=== PATIENT | female | born 1955 | race Caucasian/White ===

== ENCOUNTER → 2019-12-11 10:00 | Outpatient (BNVA) | payer MEDICARE, SELFPAY | PROVIDERS: PCP Internal Medicine; Referring Provider Internal Medicine; Visit Provider Family Medicine Adult Medicine | DX: G89.4 Chronic pain syndrome (principal); M47.816 Spondylosis without myelopathy or radiculopathy, lumbar region; M19.90 Unspecified osteoarthritis, unspecified site; Z79.891 Long term (current) use of opiate analgesic | CPT/HCPCS: 99214 ==

== ENCOUNTER → 2020-03-17 13:52 | Outpatient (BNVA) | payer MEDICARE, SELFPAY | PROVIDERS: PCP Internal Medicine; Visit Provider Family Medicine Adult Medicine | DX: Z51.81 Encounter for therapeutic drug level monitoring (principal) | CPT/HCPCS: 99211 ==

== ENCOUNTER 2020-03-24 14:12 | Outpatient (REF) | payer MEDICARE, SELFPAY ==
--- NOTE | 2020-03-24 | MM_ITS ---
EXAMINATION: MM SCREENING DIGITAL BREAST TOMOSYNTHESIS, BILATERAL CLINICAL INFORMATION: Screening. Asymptomatic. The lifetime risk of breast cancer based on the Tyrer-Cuzick Model is 7%. COMPARISON: Mammography: 12/24/2018, 11/13/2018, outside exam 03/06/2016 ([facility]). TECHNIQUE: Digital breast tomosynthesis is performed in both the craniocaudal and mediolateral oblique views along with computer-aided detection (CAD). Synthesized 2D images are generated from the tomosynthesis. FINDINGS: There are scattered areas of fibroglandular density (ACR BI-RADS breast composition Category b). Breast tissue composition borders on predominantly fatty. There are no significant masses, abnormal calcifications, or other abnormalities. No significant changes from prior exams. MM/MM tomosynthesis screening BI IMPRESSION: No mammographic evidence of malignancy. ASSESSMENT: BI-RADS 1: Negative RECOMMENDATION: Routine annual mammography screening. This patient's information was entered into a reminder system with a target due date for their next mammogram.
== END 2020-03-24 14:13 | disposition home or self-care (01) ==
LOC: HO.MAMMO 14:12
PROVIDERS: PCP Internal Medicine; Visit Provider Internal Medicine
DX: Z12.31 Encounter for screening mammogram for malignant neoplasm of breast (principal)
CPT/HCPCS: 77063; 77067

== ENCOUNTER → 2020-04-14 15:34 | Outpatient (BNVA) | payer MEDICARE, SELFPAY | PROVIDERS: PCP Internal Medicine; Visit Provider Family Medicine Adult Medicine | DX: M19.90 Unspecified osteoarthritis, unspecified site (principal); M79.7 Fibromyalgia | CPT/HCPCS: 99212 ==

== ENCOUNTER 2020-08-26 13:04 | Outpatient (REF) | payer MEDICARE, SELFPAY ==
[2020-08-26 14:13] LABS: Hematocrit 36.1 % (37-47); Hemoglobin 12.1 g/dl (12.0-16.0); Mean Corpuscular HGB Conc 33.5 g/dl (31.0-35.0); Mean Corpuscular Hemoglobin 33.9 pg (27.0-33.0); Mean Corpuscular Volume 101.1 fL (80-98); Platelet Count 179 X10*3/uL (160-400); Red Blood Count 3.57 X10*6/uL (4.20-5.50); Red Cell Distribution Width 12.5 % (11.0-16.0)
[2020-08-26 14:35] LABS: Alanine Aminotransferase 17 U/L (0-31); Albumin Level 4.2 g/dL (3.5-5.0); Alkaline Phosphatase 55 U/L (39-117); Anion Gap 12 (12-20); Aspartate Amino Transferase 25 U/L (5-31); Bilirubin Direct 0.2 mg/dL (0.0-0.5); Bilirubin Total 0.4 mg/dL (0.0-1.0); Blood Urea Nitrogen 11 mg/dL (9-16); Calcium 9.6 mg/dL (8.4-10.2); Carbon Dioxide 30 mmol/L (22-29); Chloride 97 mmol/L (96-108); Cholesterol 244 mg/dL; Estimated Glomerular Filt Rate > 60; Glucose Random 107 mg/dL (60-115); HDL Cholesterol 53 mg/dL; LDL Cholesterol Calculated 156 mg/dl; Potassium 4.1 mmol/L (3.3-5.1); Sodium 135 mmol/L (135-145); Total Protein 6.8 g/dL (6.5-8.0); Triglycerides 177 mg/dL
[2020-08-26 14:47] LABS: Glucose Urine UA NEG (NEG); Leukocyte Esterase Urine NEG (NEG); Nitrite Urine NEG (NEG); Specific Gravity - Urine 1.015 (1.005-1.025); Urine Blood NEG (NEG); Urine Ketones NEG (NEG); Urine Protein NEG (NEG-TRACE)
[2020-08-26 14:57] LABS: Thyroid Stimulating Hormone 0.16 uIU/mL (0.32-4.0)
[2020-08-26 15:05] LABS: Appearance Urine CLEAR; Color Urine YELLOW
[2020-08-26 15:06] LABS: Vitamin B12 656 pg/mL (200-900)
[2020-08-26 15:07] LABS: Erythrocyte Sedimentation Rate 7 MM/HR (0-20)
[2020-08-30 17:22] LABS: Vitamin D 25-OH, D2 <4 ng/mL; Vitamin D 25-OH, D3 62 ng/mL; Vitamin D 25-OH, Total 62 ng/mL (30-100)
== END 2020-08-26 13:05 | disposition home or self-care (01) ==
LOC: HO.LAB 13:04
PROVIDERS: PCP Internal Medicine; Visit Provider Internal Medicine
DX: M79.7 Fibromyalgia (principal)
CPT/HCPCS: 36415; 80048; 80061; 80076; 81003; 82306; 82607; 82746; 84443; 85027; 85652

== ENCOUNTER → 2020-08-30 14:23 | Outpatient (BNVA) | payer MEDICARE, SELFPAY | PROVIDERS: PCP Internal Medicine; Visit Provider Family Medicine Adult Medicine | DX: M19.90 Unspecified osteoarthritis, unspecified site (principal); M79.7 Fibromyalgia | CPT/HCPCS: 99212 ==

== ENCOUNTER → 2020-09-27 14:47 | Outpatient (BNVA) | payer MEDICARE, SELFPAY | PROVIDERS: PCP Internal Medicine; Visit Provider Family Medicine Adult Medicine | DX: M79.7 Fibromyalgia (principal); M19.90 Unspecified osteoarthritis, unspecified site; Z79.891 Long term (current) use of opiate analgesic | CPT/HCPCS: 99212 ==

== ENCOUNTER 2020-10-27 10:30 | Outpatient (REF) | payer MEDICARE, SELFPAY | END 2020-10-27 10:31 | disposition home or self-care (01) | LOC: HO.LAB 10:30 | PROVIDERS: PCP Internal Medicine; Visit Provider Family Medicine Adult Medicine | DX: M79.7 Fibromyalgia (principal); M19.90 Unspecified osteoarthritis, unspecified site; S22.069D Unspecified fracture of T7-T8 vertebra, subsequent encounter for fracture with routine healing; S13.4XXD Sprain of ligaments of cervical spine, subsequent encounter; S39.81XD Other specified injuries of abdomen, subsequent encounter; Z79.891 Long term (current) use of opiate analgesic | CPT/HCPCS: 99212 ==

== ENCOUNTER → 2020-11-24 12:55 | Outpatient (BNVA) | payer MEDICARE, SELFPAY | PROVIDERS: PCP Internal Medicine; Visit Provider Family Medicine Adult Medicine | DX: Z51.81 Encounter for therapeutic drug level monitoring (principal); M79.7 Fibromyalgia; M19.90 Unspecified osteoarthritis, unspecified site; S13.4XXD Sprain of ligaments of cervical spine, subsequent encounter; S39.81XD Other specified injuries of abdomen, subsequent encounter | CPT/HCPCS: 99212 ==

== ENCOUNTER → 2020-11-28 10:55 | Outpatient (BNVA) | payer MEDICARE, SELFPAY | PROVIDERS: PCP Internal Medicine; Visit Provider Anesthesiology ==

== ENCOUNTER → 2020-12-27 13:15 | Outpatient (BNVA) | payer MEDICARE, SELFPAY | PROVIDERS: PCP Internal Medicine; Visit Provider Family Medicine Adult Medicine | DX: Z51.81 Encounter for therapeutic drug level monitoring (principal); M79.7 Fibromyalgia; M19.90 Unspecified osteoarthritis, unspecified site | CPT/HCPCS: 99212 ==

== ENCOUNTER → 2021-01-19 15:01 | Outpatient (BNVA) | payer MEDICARE, SELFPAY | PROVIDERS: PCP Internal Medicine; Visit Provider Family Medicine Adult Medicine | DX: Z51.81 Encounter for therapeutic drug level monitoring (principal); M79.7 Fibromyalgia; M47.817 Spondylosis without myelopathy or radiculopathy, lumbosacral region | CPT/HCPCS: 99212 ==

== ENCOUNTER 2021-04-12 13:56 | Outpatient (REF) | payer MEDICARE, SELFPAY ==
--- NOTE | ~2021-04-12 | MM_ITS ---
EXAMINATION: MM SCREENING DIGITAL BREAST TOMOSYNTHESIS, BILATERAL CLINICAL INFORMATION: Screening. Asymptomatic. The lifetime risk of breast cancer based on the Tyrer-Cuzick Model is 6%. COMPARISON: Mammography: 03/24/2020, 12/24/2018, 11/13/2018, 03/06/2016 TECHNIQUE: Digital breast tomosynthesis is performed in both the craniocaudal and mediolateral oblique views along with computer-aided detection (CAD). Synthesized 2D images are generated from the tomosynthesis. FINDINGS: There are scattered areas of fibroglandular density (ACR BI-RADS breast composition Category b). Background stromal and fibroglandular densities are similar to prior studies. There is no architectural abnormality or abnormal calcifications or developing density. The axilla are unremarkable. No significant changes. MM/MM tomosynthesis screening BI IMPRESSION: No mammographic evidence of malignancy. ASSESSMENT: BI-RADS 1: Negative RECOMMENDATION: Routine annual mammography screening. This patient's information was entered into a reminder system with a target due date for their next mammogram.
[2021-04-12 14:24] LABS: Hematocrit 36.9 % (37.0-47.0); Hemoglobin 12.7 g/dl (12.0-16.0); Mean Corpuscular HGB Conc 34.4 g/dl (31.0-35.0); Mean Corpuscular Volume 101.7 fL (80.0-98.0); Mean Platelet Volume 11.2 fL (9.4-12.3); Platelet Count 195 X10*3/uL (160-400); Red Blood Count 3.63 X10*6/uL (4.20-5.50); Red Cell Distribution Width 11.9 % (11.0-16.0); White Blood Count 7.9 X10*3/uL (4.8-10.8)
[2021-04-12 15:15] LABS: Alanine Aminotransferase 21 U/L (0-31); Albumin Level 4.3 g/dL (3.5-5.0); Alkaline Phosphatase 61 U/L (39-117); Anion Gap 12 (12-20); Aspartate Amino Transferase 23 U/L (5-31); Bilirubin Direct 0.3 mg/dL (0.0-0.5); Bilirubin Total 0.9 mg/dL (0.0-1.0); Blood Urea Nitrogen 18 mg/dL (9-16); Carbon Dioxide 31 mmol/L (22-29); Chloride 98 mmol/L (96-108); Cholesterol 293 mg/dL; Estimated Glomerular Filt Rate > 60; Glucose Random 99 mg/dL (60-115); HDL Cholesterol 58 mg/dL; LDL Cholesterol Calculated 202 mg/dl; Sodium 137 mmol/L (135-145); Total Protein 7.2 g/dL (6.5-8.0); Triglycerides 169 mg/dL
[2021-04-12 15:35] LABS: Thyroid Stimulating Hormone 0.67 uIU/mL (0.32-4.0)
[2021-04-12 16:07] LABS: Appearance Urine CLEAR; Color Urine YELLOW; Glucose Urine UA NEG (NEG); Leukocyte Esterase Urine NEG (NEG); Nitrite Urine NEG (NEG); Urine Blood NEG (NEG); Urine Ketones 5 MG/DL (NEG); Urine Protein TRACE MG/DL (NEG-TRACE)
== END 2021-04-12 13:57 | disposition home or self-care (01) ==
LOC: HO.MAMMO 13:56
PROVIDERS: PCP Internal Medicine; Visit Provider Internal Medicine
DX: Z12.31 Encounter for screening mammogram for malignant neoplasm of breast (principal); F10.10 Alcohol abuse, uncomplicated; G89.4 Chronic pain syndrome; M47.817 Spondylosis without myelopathy or radiculopathy, lumbosacral region
CPT/HCPCS: 36415; 77063; 77067; 80048; 80061; 80076; 81003; 84443; 85027

== ENCOUNTER 2021-07-01 14:59 | Emergency (ER) | payer MEDICARE, SELFPAY ==
--- NOTE | ~2021-07-01 | XR_ITS ---
EXAMINATION: XR CHEST CLINICAL INFORMATION: Cough. Shortness of breath. COMPARISON: None TECHNIQUE: Frontal view of the chest was obtained. FINDINGS: The lungs are clear. The cardiomediastinal silhouette is normal in size. There is no pleural effusion or pneumothorax. No acute osseous abnormality. XR/XR chest 1V IMPRESSION: No acute cardiopulmonary findings.
[2021-07-01 15:03] VITALS: BP 198/76; PULSE 58; TEMP 36.9; O2SAT 97; BMI 35.2
[2021-07-01 15:31] LABS: COVID-19 Test Negative (Negative); IDNOW Serial# 16C4AD1C; Influenza A Positive (Negative); Influenza B2 Negative (Negative)
--- NOTE | 2021-07-01 15:48 | ED_ITS ---
HPI - URI/Sore Throat General Chief Complaint: Upper Respiratory Symptoms Stated Complaint: sob,coughing,body aches Time Seen by Provider: 07/01/21 15:47 Source: patient Mode of arrival: ambulatory Limitations: no limitations History of Present Illness HPI Narrative: 65 y/o female with history of fibromyalgia, chronic pain syndrome, epilepsy, GERD, HLD, hypothyrodism, VIPUL, anxiety who presents to the ER with 4 days of productive cough, fatigue, and body aches. She works here as a nurse and has been intermittently checking her home O2 sats on her pulse oximeter, with readings of as low as 91% the last few days. She denies any difficulty breathing or chest pain but she has some shortness of breath when she climbs a set of stairs. She has been bringing up yellow phelgm and is worried about pneumonia. She denies any fever or chills, no known sick contacts. She is vaccinated for COVID but not Flu. MD elicited complaint: cough and other (body aches) Onset (ago): day(s) (4) Consistency: constant Severity: moderate Description of mucous: watery and yellow Able to tolerate fluids by mouth: Yes Exacerbating factors: exertion Relieving factors: OTC cold medicine and rest Associated symptoms: myalgias, nasal congestion, sore throat, cough and shortness of breath Treatments prior to arrival: none Related Data Home Medications Medication Instructions Recorded Confirmed buprenorphine 8 mg-naloxone 2 mg 1 film BUCCAL Q24H ea 04/19/21 sublingual film (Suboxone) ibuprofen 200 mg capsule See Rx Instructions PO Q6H PRN 04/19/21 04/19/21 minocycline 100 mg capsule 100 mg PO Q12H 04/19/21 04/19/21 Previous Rx's Medication Instructions Recorded cholecalciferol (vitamin D3) 25 25 mcg PO DAILY 90 Days #90 cap 04/19/21 mcg (1,000 unit) capsule duloxetine 60 mg capsule,delayed 60 mg PO DAILY 90 Days #90 cap 04/19/21 release levetiracetam 500 mg tablet 500 mg PO BID 90 Days #180 tab 04/19/21 lisinopril 20 2 tab PO DAILY 90 Days #180 tab 04/19/21 mg-hydrochlorothiazide 12.5 mg tablet metoprolol succinate 100 mg 100 mg PO DAILY 90 Days #90 tab 04/19/21 tablet,extended release 24 hr omeprazole 20 mg capsule,delayed 20 mg PO DAILY 90 Days #90 cap 04/19/21 release ondansetron HCl 4 mg tablet 4 mg PO Q8H PRN #90 tab 05/04/21 levothyroxine 125 mcg tablet 125 mcg PO DAILY 90 Days #90 tab 05/29/21 lorazepam 0.5 mg tablet 0.5 mg PO BEDTIME PRN #30 tab 06/12/21 Allergies Allergy/AdvReac Type Severity Reaction Status Date / Time Sulfa (Sulfonamide Allergy Unknown Hives Verified 07/01/21 15:07 Antibiotics) [SULFA (SULFONAMIDE ANTIBIOTICS)] aspirin [ASA] AdvReac Unknown GI UPSET Verified 07/01/21 15:07 Review of Systems Review of Systems: Constitutional: + Fever, No Chills ENT/Mouth: No sore throat, No Rhinorrhea, No Swallowing Difficulty Cardiovascular: No Chest Pain, + SOB, No Orthopnea, No Edema Respiratory: + Cough, No Sputum, No Wheezing, No dyspnea Gastrointestinal: No Nausea, No Vomiting, No Diarrhea, No abdominal Pain Genitourinary: No Dysuria, No Urinary Frequency, No Hematuria Musculoskeletal: + joint pain, + Myalgias Skin: No Skin Lesions, No rash Neuro: No Weakness, No Numbness, No Dizziness, + Headache Heme/Lymph: No Bruising, No Lymphadenopathy PMFSH Past Medical History Medical History (Updated 07/01/21 @ 15:58 by IRVING Perez) Acquired hypothyroidism Benign essential hypertension Chronic pain syndrome Epilepsy Fibromyalgia Generalized anxiety disorder GERD without esophagitis Lumbar and sacral arthritis Macrocytosis without anemia Obesity (BMI 30-39.9) Obstructive sleep apnea Pure hypercholesterolemia Substance use disorder Vitamin D deficiency Surgical History History of cholecystectomy History of knee replacement Family History Family History Mother No problems noted. Father No problems noted. Daughter Substance use disorder Son Substance use disorder Social History Social History Housing: House Alcohol intake: current Alcohol intake frequency: holidays/special occasions only Patient Tobacco Use Status: Former Tobacco user Second Hand Smoke Exposure: Yes Advance Directives: No Advance Directives Information Provided: No service: No Current occupational status: previously employed Physical Exam Vital Signs: Vital Signs: Last Vital Signs Temp 98.5 F 07/01/21 15:03 Pulse 80 07/01/21 16:09 Resp 18 07/01/21 16:09 BP 170/65 H 07/01/21 16:09 Pulse Ox 97 07/01/21 16:09 BMI result Body Mass Index 35.2 Appearance: Alert. Oriented X3. No acute distress. Eyes: Pupils equal, round and reactive to light. ENT: Normal external inspection Neck: Normal inspection. Neck supple. CVS: Normal heart rate and rhythm. Pulses normal. Respiratory: No respiratory distress. Breath sounds normal. Skin: Skin warm and dry. Normal skin color. Normal skin turgor. No rashes. Extremities: No lower extremity edema. Neuro: Oriented X 3. Grossly normal, nonfocal Course Course Course Narrative: 65-year-old female presents to the ER with 4 days of dry cough, body aches and generalized fatigue. She is vaccinated for COVID but not the flu. She presents to the ER hypertensive 198/76 with SpO2 97% on room air. She is afebrile. Her examination is benign. She is found to be influenza A positive. Her chest x- ray is clear with no evidence of pneumonia. She does not qualify for treatment with Tamiflu given duration of her symptoms. She was counseled on symptomatic management, return precautions and worrisome signs to return to the ER. She is stable for discharge home with supportive care. MDM - URI/Sore Throat Lab Data Labs: Lab Results 07/01/21 07/01/21 Range/Units 15:08 15:08 COVID-19 (TANISHA) Negative (Negative) COVID-19 Clin Com See Note Influenza Type A (GABRIELLE) Positive A (Negative) Influenza Type B (GABRIELLE) Negative (Negative) Influenza A & B Note See Note Critical Care Time Critical Care Time Critical Care Time: No Discharge Plan Discharge Clinical Impression: Influenza Patient Disposition: Home, Self-Care Instructions: Influenza (DC) Additional Instructions: You tested positive for influenza A today. Your chest x-ray and oxygen levels were normal. Rest. Drink plenty of fluids. Do not go out in public for the next 5 days. Take over the counter cold/flu medications as needed for your symptoms. Take Tylenol and/or Motrin as needed for fevers and body aches. If you shortness of breath worsens, if you develop difficulty breathing or any other concerning symptom come back to the ER for further evaluation. Prescriptions: No Action ondansetron HCl 4 mg tablet 4 mg PO Q8H PRN (Reason: nausea and vomiting) Qty: 90 1RF Rx Instructions: take 1/2-1 tab by mouth every 8 hours as needed for nausea and vomiting levothyroxine 125 mcg tablet 125 mcg PO DAILY 90 Days Qty: 90 3RF lorazepam 0.5 mg tablet 0.5 mg PO BEDTIME PRN (Reason: anxiety) Qty: 30 0RF buprenorphine-naloxone [Suboxone] 8-2 mg film 1 film buccal Q24H 0RF Label Comments: weaning OFF ibuprofen 200 mg capsule See Rx Instructions PO Q6H PRN0RF Rx Instructions: 1 to 3 capsules PO every 6 hours PRN; lisinopril-hydrochlorothiazide 20-12.5 mg tablet 2 tab PO DAILY 90 Days Qty: 180 3RF duloxetine 60 mg capsule,delayed release(DR/EC) 60 mg PO DAILY 90 Days Qty: 90 1RF levetiracetam 500 mg tablet 500 mg PO BID 90 Days Qty: 180 3RF metoprolol succinate 100 mg tablet extended release 24 hr 100 mg PO DAILY 90 Days Qty: 90 3RF omeprazole 20 mg capsule,delayed release(DR/EC) 20 mg PO DAILY 90 Days Qty: 90 3RF cholecalciferol (vitamin D3) 25 mcg (1,000 unit) capsule 25 mcg PO DAILY 90 Days Qty: 90 3RF minocycline 100 mg capsule 100 mg PO Q12H 0RF Label Comments: taking as needed for acne flare up Stand Alone Forms: Work/School Release Interventions: ED Discharge Assessment Last Done: 07/01/21 16:15 Discharge Date/Time: 07/01/21 16:15
[2021-07-01 16:09] VITALS: BP 170/65; PULSE 80; RESP 18; O2SAT 97
== END 2021-07-01 16:15 | disposition home or self-care (01) ==
PROVIDERS: Emergency Provider Emergency Medicine; PCP Internal Medicine
DX: J11.1 Influenza due to unidentified influenza virus with other respiratory manifestations (principal); I10 Essential (primary) hypertension; Z20.822 Contact with and (suspected) exposure to COVID-19
CPT/HCPCS: 71045; 87502; 87635; 99283; 99284

== ENCOUNTER → 2021-08-01 13:30 | Outpatient (BNVA) | payer MEDICARE, SELFPAY | PROVIDERS: PCP Internal Medicine; Referring Provider Internal Medicine; Visit Provider Nurse Practitioner Family | DX: Z12.11 Encounter for screening for malignant neoplasm of colon (principal); K21.9 Gastro-esophageal reflux disease without esophagitis; R13.19 Other dysphagia | CPT/HCPCS: 99202; 99212 ==

== ENCOUNTER 2021-11-01 14:44 | Outpatient (REF) | payer MEDICARE, SELFPAY ==
[2021-11-01 16:16] LABS: MANUAL DIFF FLAG NO
[2021-11-01 16:23] LABS: Basophils Absolute Auto 0.1 X10*3/uL (0.0-0.2); Basophils Percent Auto 1.6 % (0-2); Eosinophils Absolute Auto 0.3 X10*3/uL (0.0-0.4); Eosinophils Percent Auto 4.8 % (0-4); Hematocrit 38.6 % (37.0-47.0); Hemoglobin 13.5 g/dl (12.0-16.0); Imm Gran Abs Auto 0.02 X10*3/uL (0.00-0.03); Imm Gran Pct Auto 0.3 % (0.0-0.4); Lymphocytes Absolute Auto 1.5 X10*3/uL (1.2-4.9); Lymphocytes Percent Auto 21.5 % (20-40); Mean Corpuscular Hemoglobin 34.4 pg (27.0-33.0); Mean Corpuscular Volume 98.5 fL (80.0-98.0); Mean Platelet Volume 10.8 fL (9.4-12.3); Monocytes Absolute Auto 0.8 X10*3/uL (0.1-1.2); Monocytes Percent Auto 11.4 % (2-11); Neutrophils Absolute Auto 4.1 x10*3/uL (2.0-8.3); Neutrophils Percent Auto 60.4 % (45-73); Platelet Count 196 X10*3/uL (160-400); Red Blood Count 3.92 X10*6/uL (4.20-5.50); Red Cell Distribution Width 12.7 % (11.0-16.0); White Blood Count 6.8 X10*3/uL (4.8-10.8)
[2021-11-01 16:48] LABS: Alanine Aminotransferase 16 U/L (0-31); Albumin Level 4.4 g/dL (3.5-5.0); Alkaline Phosphatase 63 U/L (39-117); Anion Gap 18 (12-20); Aspartate Amino Transferase 23 U/L (5-31); Bilirubin Total 0.7 mg/dL (0.0-1.0); Blood Urea Nitrogen 17 mg/dL (9-16); Calcium 9.9 mg/dL (8.4-10.2); Carbon Dioxide 27 mmol/L (22-29); Chloride 95 mmol/L (96-108); Cholesterol 273 mg/dL; Estimated Glomerular Filt Rate 56; Glucose Fasting 118 mg/dL (60-99); HDL Cholesterol 66 mg/dL; LDL Cholesterol Calculated 173 mg/dl; Sodium 136 mmol/L (135-145); Total Protein 7.5 g/dL (6.5-8.0); Triglycerides 174 mg/dL
[2021-11-01 17:08] LABS: Free T4 (Free Thyroxine) 1.24 ng/dL (0.71-1.85); Thyroid Stimulating Hormone 0.89 uIU/mL (0.32-4.0); Vitamin D 25-OH Total 52.4 ng/mL (>30)
[2021-11-01 17:25] LABS: Folate > 20.0 ng/mL (> or = 4.0); Vitamin B12 588 pg/mL (200-900)
[2021-11-05 05:52] LABS: Levetiracetam Keppra 26.1 mcg/mL (6.0-46.0)
== END 2021-11-01 14:45 | disposition home or self-care (01) ==
LOC: HO.LAB 14:44
PROVIDERS: PCP Internal Medicine; Visit Provider Internal Medicine
DX: E03.9 Hypothyroidism, unspecified (principal); E78.00 Pure hypercholesterolemia, unspecified; E55.9 Vitamin D deficiency, unspecified; I10 Essential (primary) hypertension; E53.8 Deficiency of other specified B group vitamins; G40.909 Epilepsy, unspecified, not intractable, without status epilepticus
CPT/HCPCS: 36415; 80053; 80061; 80177; 82306; 82607; 82746; 84439; 84443; 85025

== ENCOUNTER 2021-11-02 14:27 | Outpatient (REF) | payer MEDICARE, SELFPAY ==
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
== END 2021-11-02 14:28 | disposition home or self-care (01) ==
LOC: HO.MAMMO 14:27
PROVIDERS: PCP Internal Medicine; Visit Provider Obstetrics & Gynecology
DX: Z13.820 Encounter for screening for osteoporosis (principal); M85.89 Other specified disorders of bone density and structure, multiple sites; Z78.0 Asymptomatic menopausal state
CPT/HCPCS: 77080

== ENCOUNTER 2022-03-26 11:22 | Day surgery (SDC) | payer MEDICARE, SELFPAY ==
[2021-10-27 13:45] VITALS: BMI 34.7
[2022-03-26 12:11] VITALS: BP 161/72; PULSE 61; RESP 18; TEMP 36.6; O2SAT 97
--- NOTE | 2022-03-26 12:49 | MHC.SHP ---
Pre-Procedural Eval Section A Date of Service: 03/26/22 The patient is an INPATIENT: No The History & Physical has been completed within 30 days and I have reviewed it.: No Section B Chief Complaint: Dysphagia,screening Details of Present Illness: Colon cancer screening, dysphagia, GERD Relevant Family History (Specify if Yes): No Relevant Social History: Tobacco Use (former smoker) Present Medications: see Short Stay Collaborative assessment Medical History: Significant History (Acquired hypothyroidism Benign essential hypertension Chronic pain syndrome Epilepsy Fibromyalgia Generalized anxiety disorder GERD without esophagitis Lumbar and sacral arthritis Macrocytosis without anemia Obesity (BMI 30-39.9) Obstructive sleep apnea Pure hypercholesterolemia Substance use disord) History of Previous Operations: Relevant previous surgery/procedure and date(s) (History of cholecystectomy History of knee replacement) Allergies: Allergies Allergy/AdvReac Type Severity Reaction Status Date / Time Sulfa (Sulfonamide Allergy Intermediate Hives Verified 12/22/21 15:17 Antibiotics) [SULFA (SULFONAMIDE ANTIBIOTICS)] [id number] Reductase AdvReac Intermediate myalgia; Verified 12/22/21 15:17 Inhibitor word retrieval difficulty aspirin [ASA] AdvReac Mild GI UPSET Verified 12/22/21 15:17 Review of Systems Sugical H&P ROS: Negative: Constitution, Cardiovascular and Respiratory and Yes, Specify: Gastrointestinal (dysphagia) Exam Surgical H&P Exam: Normal: Heart, Normal: Lungs, Normal: Extremities and Normal: Abdomen Plan Diagnosis/Plan: Unchanged I have reviewed the history and physical and performed a pertinent physical examination on my patient. No changes have occurred unless specified. Time Spent With Patient Time: Total time managing care of this patient today ____ minutes.
--- NOTE | 2022-03-26 12:52 | P.BOP_ITS ---
Brief Operative Note Date of Service: 03/26/22 Pre-op diagnosis: Colon cancer screening, GERD, dysphagia Post-op diagnosis: other (GERD, dysphagia, gastritis, gastric polyps, prominent gastric folds, gastric antral nodule, diverticulosis) Procedure: UPPER ENDOSCOPY WITH BIOPSIES AND ESOPHAGEAL BALLOON DILATION. COLONOSCOPY TILL CECUM Surgeon: Heavenly Jiménez MD Anesthesia: MAC Was an Furniture Upholsterer Apprentice used for this Procedure?: Yes Furniture Upholsterer Apprentice: Sabrina Carmona Estimated blood loss (mL): 0 Pathology: other (A. gastric antrum, R/O H. pylori B. bxs antral nodule C. bxs gastric polyps D. bxs gastric fold E. bxs proximal esophagus, R/O EoE) Condition: stable Disposition: PACU
--- NOTE | 2022-03-26 12:53 | P.OP_ITS ---
Operative Note Operative Note Date of Service: 03/26/22 Narrative: Pre-op diagnosis: Colon cancer screening, GERD, dysphagia Post-op diagnosis:?other (GERD, dysphagia, gastritis, gastric polyps, prominent gastric folds, gastric antral nodule, diverticulosis) Surgeon: Heavenly Jiménez MD Anesthesia:?MAC FLEXIBLE TRANSORAL UPPER GASTROINTESTINAL ENDOSCOPY WITH BIOPSIES ESOPHAGEAL BALLOON DILATION AND COLONOSCOPY TILL CECUM UPPER ENDOSCOPY Consent: Indications for the procedure and potential complications of bleeding, perforation, reaction to medications and missed diagnosis were discussed with the patient and informed consent was obtained. Instrument: Olympus GIF H 190 mid size upper endoscope Monitoring: Vital signs and clinical assessment, continuous EKG monitoring, Pulse oximetry, Carbon Dioxide monitoring and blood pressure monitoring were done throughout the procedure. Procedure: The patient was placed in the left lateral decubitis position and pre-procedure medications were administered and a bite block was placed. The endoscope was inserted into the mouth and advanced under direct vision to the third part of duodenum. A careful inspection was made as the upper endoscope was withdrawn including a retroflexed examination of the proximal stomach; Findings and interventions are described below. Findings: Larynx: Normal Esophagus: Tortuous esophagus with increased tertiary contractions without obvious stricture or ring - biopsies were obtained from proximal esophagus to check for EOE. GE junction at 36 cms. No esophagitis or Gill's Esophageal balloon dilation was performed with a 19 mm (51 F) CRE balloon x 60 seconds Stomach: Prominent gastric folds in the gastric body - biopsied. A few 5 to 10 mm benign-appearing gastric polyps and the body of the stomach - biopsied. Moderate diffuse gastric erythema. Biopsies were obtained. A 12-15 mm benign appearing nodule in the gastric antrum - biopsied. Grade 2 flap valve on retroflexed examination of the cardia. Duodenum: Normal bulb and descending duodenum Intervention: Biopsies as noted above COLONOSCOPY PROCEDURE NOTE Consent: Indications for the procedure and potential complications of bleeding, perforation, reaction to medications and missed diagnosis were discussed with the patient and informed consent was obtained. Instrument: Olympus PCF H 190 L variable stiffness pediatric colonoscope Monitoring: Vital signs and clinical assessment, intermittent blood pressure monitoring, continuous EKG monitoring, Pulse oximetry and Carbon Dioxide monitoring were done throughout the procedure. Colon withdrawl time was 20 minutes. Procedure: The patient was placed in the left lateral decubitis position and pre-procedure medications were administered. After a digital rectal examination of the ano-rectum, the video colonoscope was inserted into the rectum and advanced through the colon to the cecum. The colonoscope was slowly withdrawn in a retrograde panoramic fashion and the colon mucosa was carefully examined including a retroflexed view of the rectum. Findings and interventions are described below. Procedure Difficulty: : Without difficulty Findings: Terminal Ileum: Not evaluated Cecum: Normal Ascending Colon: Normal Transverse Colon: Normal Descending Colon: Moderate diverticulosis Sigmoid Colon: Moderate diverticulosis Rectum: Normal Ano-rectum: Nomal Colon preparation: Good after copious irrigation Impression and Post Procedure Diagnosis: Endoscopy Findings: ESOPHAGUS: Tortuous esophagus with increased tertiary contractions without obvious stricture or ring - biopsies were obtained from proximal esophagus to c heck for EOE. GE junction at 36 cms. No esophagitis or Gill's Esophageal balloon dilation was performed with a 19 mm (51 F) CRE balloon x 60 seconds STOMACH: Prominent gastric folds in the gastric body - biopsied. A few 5 to 10 mm benign-appearing gastric polyps and the body of the stomach - biopsied. Moderate diffuse gastric erythema. Biopsies were obtained. A 12-15 mm benign appearing nodule in the gastric antrum - biopsied. Dysphagia is likely due to esophageal motility disorder Colonoscopy Findings: No polyps were detected Moderate diverticulosis seen in the left colon Plan: Await pathology results Patient has an appointment on 04/09/22 in the GI Clinic with Graciela Lala FNP- [place] . If patient has persistent dysphagia, recommend further evaluation with a barium swallow. Repeat Colonoscopy 10 years. Above findings were reviewed with the patient and GERD, Gastric Polyps and diverticulosis handouts were given in the discharge area
--- NOTE | 2022-03-26 12:55 | P.CONAN_ITS ---
[facility] Active Problems Active Problems: All Active Problems (Updated 12/22/21 @ 16:58 by Davie Monroe MD) Osteopenia (Acute) Impaired fasting glucose (Acute) Screening for colon cancer (Acute) Annual physical exam (Acute) Seizure (Acute) Chronic low back pain (Acute) Colon cancer screening (Acute) Macrocytosis without anemia (Acute) Pure hypercholesterolemia (Acute) Obesity (BMI 30-39.9) (Acute) GERD without esophagitis (Acute) Vitamin D deficiency (Acute) Epilepsy (Acute) Acquired hypothyroidism (Acute) Benign essential hypertension (Acute) Obstructive sleep apnea (Acute) Lumbar and sacral arthritis (Acute) Chronic pain syndrome (Acute) Substance use disorder (Acute) Generalized anxiety disorder (Acute) Fibromyalgia (Acute) Past Medical History Medical History Acquired hypothyroidism Benign essential hypertension Chronic pain syndrome Epilepsy Fibromyalgia Generalized anxiety disorder GERD without esophagitis Lumbar and sacral arthritis Macrocytosis without anemia Obesity (BMI 30-39.9) Obstructive sleep apnea Pure hypercholesterolemia Substance use disorder Vitamin D deficiency Family History Family History Mother No problems noted. Father No problems noted. Daughter Substance use disorder Son Substance use disorder Family history of problems with anesthesia: No Surgical History Surgical History H/O colonoscopy History of cholecystectomy History of esophagogastroduodenoscopy (EGD) History of knee replacement History of Problems with Anesthesia: No Social History Social History Housing: House Alcohol intake: current Alcohol intake frequency: holidays/special occasions only Patient Tobacco Use Status: Former Tobacco user Second Hand Smoke Exposure: Yes Use of substances other than those prescribed or required for medical reasons: No Are you DNR?: No Advance Directives: No Advance Directives Information Provided: Yes service: No Current occupational status: employed Cognitive needs: No Hearing needs: No Vision needs: Yes Meds Allergies Allergy/AdvReac Type Severity Reaction Status Date / Time Sulfa (Sulfonamide Allergy Intermediate Hives Verified 12/22/21 15:17 Antibiotics) [SULFA (SULFONAMIDE ANTIBIOTICS)] Unynmpc-RPX-TlL Reductase AdvReac Intermediate myalgia; Verified 12/22/21 15:17 Inhibitor word retrieval difficulty aspirin [ASA] AdvReac Mild GI UPSET Verified 12/22/21 15:17 Home Medications Medication Instructions Recorded Confirmed Last Taken Type ibuprofen 200 mg capsule See Rx Instructions PO Q6H PRN Pain 04/19/21 12/22/21 Unknown History minocycline 100 mg capsule 100 mg PO Q12H 04/19/21 12/22/21 Unknown History Exam Exam Date and Time: March 26, 2022 1255 Height,Weight and Vital Signs: Height 5 ft Weight 80.739 kg Last Vital Signs Temp 97.9 F 03/26/22 12:11 Pulse 61 03/26/22 12:11 Resp 18 03/26/22 12:11 BP 161/72 H 03/26/22 12:11 Pulse Ox 97 03/26/22 12:11 O2 Del Method 03/26/22 12:11 Airway Mallampati Class: III TM Dist: >3cm Neck ROM: Full Partial: Upper Loose/Missing/Broken Teeth: Upper Assessment and Plan Assessment Anesthesia Assessment: Anesthesia Plan Discussed and Chart Reviewed Final Anesthetic Review Family History of Problems with Anesthesia: No History of Problems with Anesthesia: No NPO: Yes ASA Class: III Final Preanesthetic Review: No Changes in Pt Med Stat, Meds/Allgs Chart Reviewed, Consent Obtained/Reviewed and Anes Risks/Benef Reviewed Patient Risk: Low Procedure Risk: Low Anesthetic Plan Anesthetic Plan: GA Disposition: Standard PACU
[2022-03-26 14:00] VITALS: BP 134/56; PULSE 62; RESP 20; TEMP 36.4; O2SAT 99
[2022-03-26 14:15] VITALS: BP 140/59; PULSE 60; RESP 16; TEMP 36.4; O2SAT 98
== END 2022-03-26 14:40 | disposition home or self-care (01) ==
PROVIDERS: PCP Internal Medicine; Visit Provider Internal Medicine Gastroenterology
PROC: (CPT 43249; principal; 2022-03-26 12:00)
DX: Z12.11 Encounter for screening for malignant neoplasm of colon (principal); K57.30 Diverticulosis of large intestine without perforation or abscess without bleeding; R13.19 Other dysphagia; K22.2 Esophageal obstruction; K21.9 Gastro-esophageal reflux disease without esophagitis; K29.50 Unspecified chronic gastritis without bleeding; K31.7 Polyp of stomach and duodenum; K31.0 Acute dilatation of stomach; E03.9 Hypothyroidism, unspecified; I10 Essential (primary) hypertension; M79.7 Fibromyalgia; G89.4 Chronic pain syndrome; M47.817 Spondylosis without myelopathy or radiculopathy, lumbosacral region; G40.909 Epilepsy, unspecified, not intractable, without status epilepticus; F41.1 Generalized anxiety disorder; G47.33 Obstructive sleep apnea (adult) (pediatric); D75.89 Other specified diseases of blood and blood-forming organs; E66.9 Obesity, unspecified; Z68.34 Body mass index [BMI] 34.0-34.9, adult; E55.9 Vitamin D deficiency, unspecified; Z79.1 Long term (current) use of non-steroidal anti-inflammatories (NSAID); Z79.899 Other long term (current) drug therapy; Z88.2 Allergy status to sulfonamides; Z88.8 Allergy status to other drugs, medicaments and biological substances; Z90.49 Acquired absence of other specified parts of digestive tract; Z87.891 Personal history of nicotine dependence
CPT/HCPCS: 43249; 43239; G0121; 88305; 88342; C1726

== ENCOUNTER → 2022-04-09 14:46 | Outpatient (BNVA) | payer MEDICARE, SELFPAY | PROVIDERS: PCP Internal Medicine; Referring Provider Internal Medicine; Visit Provider Nurse Practitioner Family | DX: R13.10 Dysphagia, unspecified (principal); K21.9 Gastro-esophageal reflux disease without esophagitis; K57.90 Diverticulosis of intestine, part unspecified, without perforation or abscess without bleeding | CPT/HCPCS: 99212 ==

== ENCOUNTER 2022-06-11 09:50 | Outpatient (REF) | payer MEDICARE, SELFPAY ==
--- NOTE | ~2022-06-11 | FL_ITS ---
EXAMINATION: FL BARIUM SWALLOW CLINICAL INFORMATION: Dysphagia. COMPARISON: None available. TECHNIQUE: Barium swallow examination is performed using fluoroscopic evaluation in addition to multiple fluoroscopic spot views. The patient is imaged both upright and prone and using both thick and thin sulfate along with effervescent granules. FLUOROSCOPY TIME: 2.5 minutes. DAP: 40.387 uGy-cm2 FLUOROSCOPIC IMAGES: 66 FINDINGS: Following oral administration of thick barium and barium coated turkey, there is normal propagation of bolus from the oral cavity through the pharynx into the midesophagus. There is mild holdup in the distal esophagus secondary to diminished motility with presence of secondary and tertiary peristalsis. On placing patient prone and oral administration of thin barium, there is a small sliding hiatal hernia with a tight GE junction and distended esophagus. No laryngeal penetration or aspiration seen. No retention of barium in the valleculae or piriform sinuses. FL/FL barium swallow IMPRESSION: Moderate spasm or narrowing at the GE junction in prone and supine lying position. Also visualized is a small sliding hiatal hernia. Decreased motility in the distal esophagus in upright view with secondary and tertiary peristalsis resulting in mild distention of proximal and mid esophagus.
== END 2022-06-11 09:51 | disposition home or self-care (01) ==
LOC: HO.XRAY 09:50
PROVIDERS: PCP Internal Medicine; Visit Provider Nurse Practitioner Family
DX: R13.10 Dysphagia, unspecified (principal)
CPT/HCPCS: 74220

== ENCOUNTER 2022-07-03 14:29 | Outpatient (REF) | payer MEDICARE, SELFPAY ==
[2022-07-03 14:45] LABS: MANUAL DIFF FLAG NO
[2022-07-03 15:16] LABS: Basophils Absolute Auto 0.1 X10*3/uL (0.0-0.2); Basophils Percent Auto 1.5 % (0-2); Eosinophils Absolute Auto 0.3 X10*3/uL (0.0-0.4); Eosinophils Percent Auto 5.1 % (0-4); Hematocrit 36.4 % (37.0-47.0); Hemoglobin 12.5 g/dl (12.0-16.0); Imm Gran Abs Auto 0.02 X10*3/uL (0.00-0.03); Imm Gran Pct Auto 0.3 % (0.0-0.4); Lymphocytes Absolute Auto 1.7 X10*3/uL (1.2-4.9); Lymphocytes Percent Auto 25.6 % (20-40); Mean Corpuscular HGB Conc 34.3 g/dl (31.0-35.0); Mean Corpuscular Hemoglobin 33.6 pg (27.0-33.0); Mean Corpuscular Volume 97.8 fL (80.0-98.0); Mean Platelet Volume 10.5 fL (9.4-12.3); Monocytes Absolute Auto 0.7 X10*3/uL (0.1-1.2); Neutrophils Absolute Auto 3.7 x10*3/uL (2.0-8.3); Neutrophils Percent Auto 56.5 % (45-73); Platelet Count 195 X10*3/uL (160-400); Red Blood Count 3.72 X10*6/uL (4.20-5.50); White Blood Count 6.5 X10*3/uL (4.8-10.8)
[2022-07-03 15:20] LABS: Estimated Average Glucose 126 mg/dL
[2022-07-03 15:49] LABS: Alanine Aminotransferase 22 U/L (0-31); Albumin Level 4.3 g/dL (3.5-5.0); Alkaline Phosphatase 58 U/L (39-117); Anion Gap 13 (12-20); Aspartate Amino Transferase 27 U/L (5-31); Bilirubin Total 0.8 mg/dL (0.0-1.0); Blood Urea Nitrogen 14 mg/dL (9-16); Calcium 9.5 mg/dL (8.4-10.2); Carbon Dioxide 31 mmol/L (22-29); Chloride 93 mmol/L (96-108); Cholesterol 227 mg/dL; Estimated Glomerular Filt Rate 56; Glucose Fasting 104 mg/dL (60-99); HDL Cholesterol 48 mg/dL; LDL Cholesterol Calculated 131 mg/dl; Potassium 4.3 mmol/L (3.3-5.1); Sodium 133 mmol/L (135-145); Total Protein 6.9 g/dL (6.5-8.0); Triglycerides 241 mg/dL
[2022-07-03 16:05] LABS: Free T4 (Free Thyroxine) 1.08 ng/dL (0.71-1.85); Thyroid Stimulating Hormone 1.13 uIU/mL (0.32-4.0)
== END 2022-07-03 14:30 | disposition home or self-care (01) ==
LOC: HO.LAB 14:29
PROVIDERS: PCP Internal Medicine; Visit Provider Internal Medicine
DX: E03.9 Hypothyroidism, unspecified (principal); I10 Essential (primary) hypertension; R73.01 Impaired fasting glucose; E78.00 Pure hypercholesterolemia, unspecified
CPT/HCPCS: 36415; 80053; 80061; 83036; 84439; 84443; 85025

== ENCOUNTER → 2022-07-16 15:00 | Outpatient (BNVA) | payer MEDICARE, SELFPAY | PROVIDERS: PCP Internal Medicine; Visit Provider Nurse Practitioner Family | DX: K21.9 Gastro-esophageal reflux disease without esophagitis (principal) | CPT/HCPCS: 99212 ==

== ENCOUNTER 2023-01-09 12:47 | Emergency (ER) | payer MEDICARE, SELFPAY ==
--- NOTE | ~2023-01-09 | XR_ITS ---
EXAMINATION: XR CHEST CLINICAL INFORMATION: Cough COMPARISON: Previous dated 07/01/2021 TECHNIQUE: 2 views of the chest were obtained. FINDINGS: There is a density in the right upper lung medially. Etiology is indeterminate. Recommend CT to fully evaluate. A lesion would need to be considered. Otherwise the lung heredia are grossly clear and comparable to previous. There is no failure. No effusion. Cardiac silhouette is comparable. Tortuous versus ectatic arch and descending aorta. XR/XR chest 2V IMPRESSION: Density in the right upper lung medially adjacent to the trachea. CT recommended to fully evaluate. Lesion here cannot be excluded. Otherwise no acute finding
[2023-01-09 13:06] VITALS: BP 149/74; PULSE 65; RESP 18; TEMP 36.8; O2SAT 97; BMI 36.1
--- NOTE | 2023-01-09 13:10 | ED.GENADULT ---
HPI - General Adult General Chief complaint: Upper Respiratory Symptoms Stated complaint: SOB/Cough Time Seen by Provider: 01/09/23 15:13 History of Present Illness HPI narrative: patient complains of productive cough and wheezing for past week to 10 days No chest pain no abdominal pain no nausea vomiting or diarrhea no calf pain or swelling Denies fever chills, no sore throat no difficulty swallowing , she tolerates p.o. Related Data Home Medications Medication Instructions Recorded Confirmed ibuprofen 200 mg capsule See Rx Instructions PO Q6H PRN Pain 04/19/21 07/09/22 levetiracetam 500 mg tablet 500 mg PO BID 04/09/22 07/09/22 duloxetine 60 mg capsule,delayed 60 mg PO DAILY 07/16/22 release Previous Rx's Medication Instructions Recorded cholecalciferol (vitamin D3) 25 25 mcg PO DAILY 90 days #90 caps 04/19/21 mcg (1,000 unit) capsule lisinopril 20 2 tab PO DAILY 90 days #180 tabs 02/27/22 mg-hydrochlorothiazide 12.5 mg tablet lorazepam 1 mg tablet 1 mg PO DAILY PRN anxiety 7 days 04/02/22 #7 tabs famotidine 20 mg tablet (Pepcid) 20 mg PO BEDTIME #30 tabs 04/09/22 methylcellulose (laxative) 500 mg 500 mg PO DAILY #90 tabs 04/09/22 tablet (Citrucel) polyethylene glycol 3350 17 17 g PO DAILY #510 grams 04/09/22 gram/dose oral powder (Miralax) metoprolol succinate 100 mg 100 mg PO DAILY 90 days #90 tabs 04/30/22 tablet,extended release 24 hr levothyroxine 125 mcg tablet 125 mcg PO DAILY 90 days #90 tabs 06/27/22 omeprazole 20 mg capsule,delayed 20 mg PO DAILY 90 days #90 caps 07/16/22 release ondansetron HCl 4 mg tablet 2 - 4 mg (0.5 - 1 x 4 mg) PO Q8H 09/27/22 PRN for nausea/vomiting 30 days #90 tabs duloxetine 30 mg capsule,delayed 30 mg PO DAILY 30 days #30 caps 11/18/22 release lorazepam 0.5 mg tablet 0.5 mg PO BEDTIME PRN anxiety 30 01/02/23 days #30 tabs albuterol sulfate 90 mcg/actuation 2 puff inhalation Q4-6H PRN 01/09/23 aerosol inhaler shortness of breath or wheezing #8.5 grams amoxicillin 875 mg-potassium 1 tab PO BID #14 tabs 01/09/23 clavulanate 125 mg tablet doxycycline hyclate 100 mg capsule 100 mg PO BID 7 days #14 caps 01/09/23 prednisone 20 mg tablet 60 mg (3 x 20 mg) PO DAILY 4 days 01/09/23 #12 tabs Allergies Allergy/AdvReac Type Severity Reaction Status Date / Time Sulfa (Sulfonamide Allergy Intermediate Hives Verified 07/16/22 15:08 Antibiotics) [SULFA (SULFONAMIDE ANTIBIOTICS)] [id number]-LHS-ShU Reductase AdvReac Intermediate myalgia; Verified 07/16/22 15:08 Inhibitor word retrieval difficulty aspirin [ASA] AdvReac Mild GI UPSET Verified 07/16/22 15:08 [facility] Past Medical History Source: nursing notes reviewed Medical History Acquired hypothyroidism Benign essential hypertension Chronic pain syndrome Epilepsy Fibromyalgia Generalized anxiety disorder GERD without esophagitis Lumbar and sacral arthritis Macrocytosis without anemia Obesity (BMI 30-39.9) Obstructive sleep apnea Pure hypercholesterolemia Substance use disorder Vitamin D deficiency Surgical History H/O colonoscopy History of cholecystectomy History of esophagogastroduodenoscopy (EGD) History of knee replacement Family History Family History Mother No problems noted. Father No problems noted. Daughter Substance use disorder Son Substance use disorder Social History Social History Housing: House Alcohol intake: current Alcohol intake frequency: holidays/special occasions only Patient Tobacco Use Status: Former Tobacco user Second Hand Smoke Exposure: Yes Advance Directives: No Advance Directives Information Provided: No service: No Current occupational status: employed Cognitive needs: No Hearing needs: No Vision needs: Yes Physical Exam ED Vital Signs: Vital Signs - 24 hr 01/09/23 13:06 Temperature 98.2 F Pulse Rate 65 Respiratory Rate 18 Blood Pressure 149/74 H Pulse Oximetry 97 Oxygen Delivery Method Room Air BMI result Body Mass Index 36.1 general appearance is no distress Eyes no redness or discharge The sinuses are nontender The neck is supple The chest exam there is wheezing bilaterally with good air movement no respiratory distress Heart no murmur auscultated Abdomen soft nontender Extremities no edema no calf tenderness or swelling Skin no rash Course Course Course Narrative: This is an RME: Additional HPI, ROS, PE not included below will be deferred to primary provider. This is a 53-rfoz-bjy-female, hx of fibromyalgia, chronic pain syndrome, epilepsy, GERD, HLD, hypothyrodism, VIPUL, anxiety who presents to the ER with complaints of shortness of breath, wheezing, productive cough starting 8 days ago. She has been taking Mucinex, theraflu with minimal relief. Vital signs stable. Plan: CXR, viral swabs Patient responded well to albuterol with resolution of wheezing and chest tightness X-ray shows a density in the right upper lung, CT was recommended as a test for further evaluation, patient does have primary doctor that she can not access and understands the importance of scheduling imaging and will contact her doctor She is treated for possible pneumonia with Augmentin and doxycycline as well as prednisone and albuterol inhaler for the wheezing Well-appearing patient breathing easily is discharged Medications Administered Discontinued Medications Generic Name Dose Route Start Last Admin Trade Name Giorgi PRN Reason Stop Dose Admin Acetaminophen 650 mg 01/09/23 15:47 01/09/23 15:48 Acetaminophen 325 Mg Tablet PO 01/09/23 15:48 650 mg ONCE ONE Administration Albuterol/Ipratropium 3 ml 01/09/23 15:40 01/09/23 16:00 Albuterol/Iprat 2.5/0.5mg 3 Ml Ampul.Neb INHALE 01/09/23 15:41 3 ml ONCE ONE Administration Prednisone 60 mg 01/09/23 15:40 01/09/23 15:48 Prednisone 20 Mg Tablet PO 01/09/23 15:41 60 mg ONCE ONE Administration Medical Decision Making Lab Data Labs: Lab Results 01/09/23 Range/Units 14:18 Influenza Type A (PCR) NEGATIVE (Negative) Influenza Type B (PCR) NEGATIVE (Negative) RSV RNA Qual (PCR) NEGATIVE (Negative) SARS-CoV-2 RNA (RT-PCR) NEGATIVE (Negative) Discharge Plan Discharge Clinical Impression: Bronchitis, Wheezing Patient Disposition: Home, Self-Care Additional Instructions: your chest x-ray showed a density and it is not clear what is, so they recommended further imaging which can be done in the coming weeks so call primary doctor make an appointment and he will schedule imaging We are treating with antibiotic for possible lung infection We are treating with prednisone and albuterol for wheezing Return any time for difficulty breathing any worse condition or any concerns Prescriptions: New prednisone 20 mg tablet 60 mg PO DAILY 4 Days Qty: 12 0RF doxycycline hyclate 100 mg capsule 100 mg PO BID 7 Days Qty: 14 0RF amoxicillin-pot clavulanate 875-125 mg tablet 1 tab PO BID Qty: 14 0RF albuterol sulfate 90 mcg/actuation HFA aerosol inhaler 2 puff inhalation Q4-6H PRN (Reason: shortness of breath or wheezing) Qty: 8.5 0RF No Action lisinopril-hydrochlorothiazide 20-12.5 mg tablet 2 tab PO DAILY 90 Days Qty: 180 3RF lorazepam 1 mg tablet 1 mg PO DAILY PRN (Reason: anxiety) 7 Days Qty: 7 0RF metoprolol succinate 100 mg tablet extended release 24 hr 100 mg PO DAILY 90 Days Qty: 90 3RF levothyroxine 125 mcg tablet 125 mcg PO DAILY 90 Days Qty: 90 3RF ondansetron HCl 4 mg tablet 2 - 4 mg PO Q8H PRN (Reason: for nausea/vomiting) 30 Days Qty: 90 1RF duloxetine 30 mg capsule,delayed release(DR/EC) 30 mg PO DAILY 30 Days Qty: 30 3RF lorazepam 0.5 mg tablet 0.5 mg PO BEDTIME PRN (Reason: anxiety) 30 Days Qty: 30 0RF ibuprofen 200 mg capsule See Rx Instructions PO Q6H PRN (Reason: Pain) Rx Instructions: 1 to 3 capsules PO every 6 hours PRN; cholecalciferol (vitamin D3) 25 mcg (1,000 unit) capsule 25 mcg PO DAILY 90 Days Qty: 90 3RF levetiracetam 500 mg tablet 500 mg PO BID polyethylene glycol 3350 [Miralax] 17 gram/dose powder 17 g PO DAILY Qty: 510 2RF Citrucel 500 mg tablet 500 mg PO DAILY Qty: 90 2RF Rx Instructions: take it with full glass of water famotidine [Pepcid] 20 mg tablet 20 mg PO BEDTIME Qty: 30 3RF duloxetine 60 mg capsule,delayed release(DR/EC) 60 mg PO DAILY Rx Instructions: To take during winter omeprazole 20 mg capsule,delayed release(DR/EC) 20 mg PO DAILY 90 Days Qty: 90 1RF Stand Alone Forms: Work/School Release
[2023-01-09 14:59] LABS: Influenza A PCR NEGATIVE (Negative); Influenza B PCR NEGATIVE (Negative); Resp Syncy Virus RNA Qual PCR NEGATIVE (Negative); SARS COV2 PCR INHOUSE NEGATIVE (Negative)
[2023-01-09] MEDS: Acetaminophen 325 MG TABLET 650 MG PO (15:48)
[2023-01-09] MEDS: predniSONE 20 MG TABLET 60 MG PO (15:48)
[2023-01-09] MEDS: Albuterol/Iprat 2.5/0.5MG 3 ML AMPUL.NEB INHALE (16:00)
[2023-01-09] MEDS: Doxycycline Monohydrate 100 MG CAPSULE PO (16:35)
[2023-01-09] MEDS: Amoxicillin/Potassium Clav 875 MG TABLET PO (16:36)
== END 2023-01-09 16:45 | disposition home or self-care (01) ==
PROVIDERS: Physician Assistant Medical; Emergency Provider Student in an Organized Health Care Education/Training Program; PCP Internal Medicine
DX: J40 Bronchitis, not specified as acute or chronic (principal); R06.02 Shortness of breath; R05.9 Cough, unspecified; R53.1 Weakness; Z20.822 Contact with and (suspected) exposure to COVID-19; Z20.828 Contact with and (suspected) exposure to other viral communicable diseases
CPT/HCPCS: 0241U; 71046; 99283; 99284

== ENCOUNTER 2023-01-22 13:12 | Outpatient (AMB) | payer MEDICARE, SELFPAY ==
--- NOTE | 2023-01-22 13:28 | A.OFFPC_ITS ---
Vital Signs 01/22/23 13:30 Height 5 ft Weight 185 lb BMI 36.1 BP 110/76 Blood Pressure Location Lt brachial Position Sitting Pulse 86 Pulse Source Pulse Oximeter Pulse Oximetry (%) 98 Oxygen Delivery Method Room Air Intake Visit Reasons: Lung issue Intake Note: Patient is here to follow-up after a visit the emergency department at [facility]. Per pt a density was found on chest xray and she was advise to see pcp for a follow up. Rural Sociologist Required: No Service Attendant Cafeteria: Not Required per policy Accompanied by: Self / Same As Patient Allergies Sulfa (Sulfonamide Antibiotics) [SULFA (SULFONAMIDE ANTIBIOTICS)] Allergy (Intermediate, Verified 01/22/23 14:28) Hives Dtclfav-SHQ-JdR Reductase Inhibitor Adverse Reaction (Intermediate, Verified 01/22/23 14:28) myalgia; word retrieval difficulty aspirin [ASA] Adverse Reaction (Mild, Verified 01/22/23 14:28) GI UPSET Medication List - Last Reconciled 01/22/23 by AMPARO Ernst albuterol sulfate 90 mcg/actuation 2 puffs inhalation Q4-6H PRN cholecalciferol (vitamin D3) 25 mcg PO DAILY 90 days duloxetine 30 mg PO DAILY 30 days duloxetine 60 mg PO DAILY ibuprofen 1 to 3 capsules PO every 6 hours PRN; levetiracetam 500 mg PO BID levothyroxine 125 mcg PO DAILY 90 days lisinopril-hydrochlorothiazide 20-12.5 mg 2 tabs PO DAILY 90 days lorazepam 1 mg PO DAILY PRN 7 days lorazepam 0.5 mg PO BEDTIME PRN 30 days methylcellulose (laxative) (Citrucel) 500 mg PO DAILY metoprolol succinate ER 100 mg PO DAILY 90 days multivitamin (Daily Multi-Vitamin tablet) 1 tab PO DAILY omeprazole 20 mg PO DAILY 90 days ondansetron HCl 2 - 4 mg (0.5 - 1 x 4 mg) PO Q8H PRN 30 days polyethylene glycol 3350 (Miralax) 17 grams PO DAILY Tobacco use date assessed: 01/22/23 Fall risk assessment: No Falls in past year Last assessed Fall Risk: 01/22/23 Dental Screening Dental Screen Date: 01/22/23 Did you have a dental visit in the last 12 months?: Yes Did you have a dental problem in the last 6 months where you did not have access to dental care?: No Was dental information given to patient?: Patient has dentist HPI HPI Comments History of Present Illness Details 66-year-old female past medical history significant for chronic pains from, substance use disorder, generalized anxiety disorder, fibromyalgia, hypertension, hypothyroidism, hypercholesteremia and epilepsy. Patient Dr. Monroe last seen in July. Patient presents today for ER follow for sob and wheezing x 10days, Viral swab negative for FLU/RSV/COVID, CXR showed RUL denisty, lesion could not be excluded recommended follow up with CT scan. Patient was treated wtih augmentin and doxy for poissible pneumonia. Patient reports she discontinued her treatment with Augmentin and doxycycline wi th 1 tablet left of each due to diarrhea. Patient reports she has since started a probiotic and her diarrhea has completely resolved. Patient denies any shortness of breath, cough, fevers or chills. Denies any hemoptysis. CT of the chest ordered to further evaluate right upper lobe density. [facility] Medical History Acquired hypothyroidism Benign essential hypertension Chronic pain syndrome Epilepsy Fibromyalgia Generalized anxiety disorder GERD without esophagitis Lumbar and sacral arthritis Macrocytosis without anemia Obesity (BMI 30-39.9) Obstructive sleep apnea Pure hypercholesterolemia Substance use disorder Vitamin D deficiency Surgical History History of esophagogastroduodenoscopy (EGD) H/O colonoscopy History of knee replacement History of cholecystectomy Family History Mother No problems noted. Father No problems noted. Daughter Substance use disorder Son Substance use disorder Housing: House Alcohol intake: current Alcohol intake frequency: holidays/special occasions only Patient Tobacco Use Status: Former Tobacco user e-Cigarette/Vaping Use: Never Used Second Hand Smoke Exposure: Yes service: No Current occupational status: employed Cognitive needs: No Hearing needs: No Vision needs: Yes Questionnaire PHQ-9 Over the last 2 weeks, how often have you been bothered by any of the following problems? 1. Little interest or pleasure in doing things: not at all 2. Feeling down, depressed, or hopeless: not at all 3. Trouble falling or staying asleep, or sleeping too much: not at all 4. Feeling tired or having little energy: not at all 5. Poor appetite or overeating: not at all 6. Feeling bad about yourself - or that you are a failure or have let yourself or your family down: not at all 7. Trouble concentrating on things, such as reading the newspaper or watching television: not at all 8. Moving or speaking so slowly that other people could have noticed. Or the opposite - being so fidgety or restless that you have been moving around a lot more than usual: not at all 9. Thoughts that you would be better off or of hurting yourself in some way: not at all Total score: 0 Depression Screening Interpretation: Negative Depression Screening Done: Yes Source: Developed by Drs. Jaswinder Ferrara, Ling Wall, Kushal De La Cruz and colleagues, with an educational jesus from [employer] Thrive Questionnaire Date Thrive assessed: 07/09/22 JANELLE-7 AMB Questionnaire JANELLE-7 Date JANELLE - 7 assessed: 07/09/22 Source: Developed by Drs. Jaswinder Ferrara, Ling Wall, Kushal De La Cruz and colleagues, with an educational jesus from [employer] Review of Systems Const Denies chills, Denies fatigue, Denies fever(s) and Denies poor appetite Eyes Denies no additional complaints ENT Reports Normal hearing present Card Denies chest pain, Denies syncope, Denies rapid heart rate and Denies dyspnea Resp Denies cough and Denies dyspnea GI Denies change in stool character, Denies constipation, Denies diarrhea, Denies nausea and Denies vomiting Denies urinary frequency, Denies dysuria and Denies urinary urgency Neuro Reports Normal hearing present, Denies confusion and Denies syncope Psych Denies confusion Endo Denies fatigue Physical exam (Primary Care) Vital Signs: Last Vital Signs Pulse 86 01/22/23 13:30 BP 110/76 01/22/23 13:30 Pulse Ox 98 01/22/23 13:30 Oxygen Delivery Method Room Air 01/22/23 13:30 BMI result Body Mass Index 36.1 Tobacco/Smoking Status: Tobacco use Status Tobacco use date assessed 01/22/23 01/22/23 13:30 Patient Tobacco Use Status Former Tobacco user 01/22/23 13:30 e-Cigarette/Vaping Use Never Used 01/22/23 13:30 PHQ-9: PHQ-9 Score PHQ-9: Total score 0 01/22/23 13:40 Depression Screening Interpretation: Negative Thrive Assessment: Date of Thrive Assessment Date Thrive assessed 07/09/22 01/22/23 13:30 Const General: No confusion Orientation/consciousness: No confusion HENMT Head: Yes normocephalic and Yes atraumatic Eyes Conjunctivae: conjunctivae normal Chest Chest palpation & inspection: normal inspection of the chest Resp Effort & Inspection: normal respiratory effort Auscultation: clear to auscultation bilaterally, no crackles, no rhonchi and no wheezes Cardio Rate: regular rate Rhythm: regular rhythm Heart sounds: S1 normal heart sound present and S2 normal heart sound present Peripheral pulses: dorsalis pedis present GI Inspection: Yes normal to inspection General: Yes no CVA tenderness Back/Spine/Pelvis Back: no CVA tenderness Neuro General: No confusion Cranial nerves: Yes Normal hearing present Extrem General: No edema Assessment and Plan Assessment & Plan (1) Right upper lobe consolidation: Code(s): J18.1 - Lobar pneumonia, unspecified organism Plan: Chest x-ray showed right upper lobe density lesion could not be excluded recommended follow-up with CT scan. CT of the chest ordered urgently. Signs and symptoms reviewed with patient when to follow-up or seek emergency medical attention. (2) Pure hypercholesterolemia: Code(s): E78.00 - Pure hypercholesterolemia, unspecified Plan: Avoid fried foods, chicken skin, eggs, butter,margarine, pastries and? red meat. (3) Obstructive sleep apnea: Comment: uses CPAP Code(s): G47.33 - Obstructive sleep apnea (adult) (pediatric) Plan: Continue to use CPAP machine for greater than 4 hours a night with good effect. (4) Generalized anxiety disorder: Code(s): F41.1 - Generalized anxiety disorder Plan: Continue on current medications. Plan Keep scheduled physical exam with PCP in March or follow-up sooner if needed Orders: Orders CT chest wo IV con Today J18.1 - Lobar pneumonia, unspecified organism Coding Level of Care Code Est Pt Level 4 (72096) Diagnoses Right upper lobe consolidation J18.1 Pure hypercholesterolemia E78.00 Obstructive sleep apnea G47.33 Generalized anxiety disorder F41.1
[2023-01-22 13:30] VITALS: BP 110/76; PULSE 86; O2SAT 98; BMI 36.1
== END 2023-01-22 13:48 | disposition home or self-care (01) ==
PROVIDERS: PCP Internal Medicine; Visit Provider Nurse Practitioner Family
DX: J18.1 Lobar pneumonia, unspecified organism (principal); E78.00 Pure hypercholesterolemia, unspecified; G47.33 Obstructive sleep apnea (adult) (pediatric); F41.1 Generalized anxiety disorder
CPT/HCPCS: 99214

== ENCOUNTER 2023-02-01 13:01 | Outpatient (REF) | payer MEDICARE, SELFPAY ==
--- NOTE | ~2023-02-01 | CT_ITS ---
EXAMINATION: CT CHEST WITHOUT CONTRAST CLINICAL INFORMATION: Lobar pneumonia COMPARISON: Previous chest x-ray most recent 01/09/2023 TECHNIQUE: Multidetector volumetric CT imaging of the chest was done. Axial MIP volume rendering provided. Sagittal and coronal reformatted images were obtained. This CT examination was performed using dose optimization techniques as appropriate, variously including the following: *Automated exposure control *Adjustment of mA and/or kV according to patient size (this includes techniques or standardized protocols for targeted exams where dose is matched to indication/reason for exam; i.e. extremities or head) *Use of iterative reconstruction technique DLP: 154 mGy-cm FINDINGS: LUNGS: There are increased peripheral linear markings in the right middle and right lower lobes. To a lesser extent this involves the peripheral subpleural anterior lower right upper lobe as well. This may represent post scarring. Linear subsegmental atelectasis at the left lung base. 3 mm peripheral or subpleural left lobe nodule axial image 338 series 5. Probably represents a subpleural lymph node. No endobronchial or endotracheal lesion. MEDIASTINUM: Small calcification in the right thyroid gland. No imaging follow-up recommended. Normal heart size. No pericardial effusion. Caliber thoracic aorta. No enlarged hilar or mediastinal lymph nodes. CORONARY ARTERY CALCIFICATION: Mild PLEURA: There is no pleural effusion. No pleural mass or thickening. AXILLA: No lymphadenopathy. UPPER ABDOMEN: The gallbladder has been removed. OSSEOUS STRUCTURES: Severe old T6 vertebral body compression fracture. There is mild retropulsion of bone measuring 5 mm. Old right rib and sternal and manubrial fractures. There are several lucent lesions thoracic and upper lumbar spine probably representing benign hemangiomas. CT/CT chest wo IV con IMPRESSION: Increased peripheral linear markings in the right lower lung. This may represent post infectious or inflammatory scarring. Linear subsegmental atelectasis in left lower lobe. No evidence of acute pneumonia. Fleischner guidelines were followed.
== END 2023-02-01 13:02 | disposition home or self-care (01) ==
LOC: HO.CT 13:01
PROVIDERS: PCP Internal Medicine; Visit Provider Nurse Practitioner Family
DX: J18.1 Lobar pneumonia, unspecified organism (principal)
CPT/HCPCS: 71250

== ENCOUNTER 2023-03-27 14:37 | Outpatient (REF) | payer MEDICARE, SELFPAY ==
[2023-03-27 15:44] LABS: Basophils Absolute Auto 0.1 X10*3/uL (0.0-0.2); Basophils Percent Auto 1.3 % (0-2); Eosinophils Absolute Auto 0.2 X10*3/uL (0.0-0.4); Eosinophils Percent Auto 2.5 % (0-4); Hemoglobin 13.4 g/dl (12.0-16.0); Imm Gran Abs Auto 0.03 X10*3/uL (0.00-0.03); Imm Gran Pct Auto 0.4 % (0.0-0.4); Lymphocytes Absolute Auto 1.6 X10*3/uL (1.2-4.9); Lymphocytes Percent Auto 23.8 % (20-40); MANUAL DIFF FLAG NO; Mean Corpuscular HGB Conc 34.4 g/dl (31.0-35.0); Mean Corpuscular Hemoglobin 34.5 pg (27.0-33.0); Mean Corpuscular Volume 100.5 fL (80.0-98.0); Mean Platelet Volume 11.1 fL (9.4-12.3); Monocytes Absolute Auto 0.6 X10*3/uL (0.1-1.2); Monocytes Percent Auto 8.9 % (2-11); Neutrophils Absolute Auto 4.3 x10*3/uL (2.0-8.3); Neutrophils Percent Auto 63.1 % (45-73); Platelet Count 200 X10*3/uL (160-400); Red Blood Count 3.88 X10*6/uL (4.20-5.50); Red Cell Distribution Width 12.2 % (11.0-16.0); White Blood Count 6.9 X10*3/uL (4.8-10.8)
[2023-03-27 18:33] LABS: Appearance Urine Clear; Color Urine Yellow; Glucose Urine UA Negative (Negative); Leukocyte Esterase Urine Negative (Negative); Nitrite Urine Negative (Negative); PH 7.5 (5.0-9.0); Urine Blood Negative (Negative); Urine Ketones Negative (Negative); Urine Protein Negative (Neg-Trace)
[2023-03-27 19:23] LABS: Alanine Aminotransferase 22 U/L (0-31); Albumin Level 4.1 g/dL (3.5-5.0); Alkaline Phosphatase 68 U/L (39-117); Anion Gap 16 (12-20); Aspartate Amino Transferase 25 U/L (5-31); Bilirubin Total 0.5 mg/dL (0.0-1.0); Blood Urea Nitrogen 15 mg/dL (9-16); Calcium 9.9 mg/dL (8.4-10.2); Carbon Dioxide 29 mmol/L (22-29); Chloride 95 mmol/L (96-108); Cholesterol 251 mg/dL (<200); Estimated Glomerular Filt Rate 51; Glucose Fasting 96 mg/dL (60-99); HDL Cholesterol 61 mg/dL (>40); LDL Cholesterol Calculated 156 mg/dL (<100); Potassium 4.1 mmol/L (3.3-5.1); Sodium 136 mmol/L (135-145); Total Protein 6.9 g/dL (6.5-8.0); Triglycerides 171 mg/dL (<150)
[2023-03-27 19:38] LABS: Free T4 (Free Thyroxine) 1.12 ng/dL (0.71-1.85); Thyroid Stimulating Hormone 1.49 uIU/mL (0.32-4.0); Vitamin D 25-OH Total 47.7 ng/mL (>30)
[2023-03-30 20:09] LABS: Levetiracetam Keppra 16.9 mcg/mL (6.0-46.0)
== END 2023-03-27 14:38 | disposition home or self-care (01) ==
LOC: HO.LAB 14:37
PROVIDERS: PCP Internal Medicine; Visit Provider Internal Medicine
DX: E78.00 Pure hypercholesterolemia, unspecified (principal); E55.9 Vitamin D deficiency, unspecified; E03.9 Hypothyroidism, unspecified; R30.0 Dysuria; G40.909 Epilepsy, unspecified, not intractable, without status epilepticus; I10 Essential (primary) hypertension
CPT/HCPCS: 36415; 80053; 80061; 80177; 81003; 82306; 84439; 84443; 85025

== ENCOUNTER 2023-03-27 15:00 | Outpatient (AMB) | payer MEDICARE, SELFPAY ==
[2023-03-27 15:00] VITALS: BP 124/80; PULSE 62; O2SAT 97; BMI 35.4
--- NOTE | 2023-03-27 15:00 | MHC.PC.OV ---
Vital Signs 03/27/23 15:00 Height 5 ft Weight 181 lb 6 oz BMI 35.4 BP 124/80 Blood Pressure Location Lt brachial Position Sitting Pulse 62 Pulse Source Pulse Oximeter Pulse Oximetry (%) 97 Oxygen Delivery Method Room Air Intake Visit Reasons: HTN/Hypercholesteremia F/U Potato Spotter Required: No Accompanied by: Self / Same As Patient Allergies Sulfa (Sulfonamide Antibiotics) [SULFA (SULFONAMIDE ANTIBIOTICS)] Allergy (Intermediate, Verified 03/27/23 15:54) Hives Lguvafg-[id number]-[id number] Reductase Inhibitor Adverse Reaction (Intermediate, Verified 03/27/23 15:54) myalgia; word retrieval difficulty aspirin [ASA] Adverse Reaction (Mild, Verified 03/27/23 15:54) GI UPSET Medication List - Last Reconciled 03/27/23 by Davie Monroe MD albuterol sulfate 90 mcg/actuation 2 puffs inhalation Q4-6H PRN cholecalciferol (vitamin D3) 25 mcg PO DAILY 90 days duloxetine 30 mg PO DAILY 30 days duloxetine 60 mg PO DAILY 90 days ibuprofen 1 to 3 capsules PO every 6 hours PRN; levetiracetam 500 mg PO BID levothyroxine 125 mcg PO DAILY 90 days lisinopril-hydrochlorothiazide 20-12.5 mg 2 tabs PO DAILY 90 days lorazepam 1 mg PO DAILY PRN 30 days lorazepam 0.5 mg PO BEDTIME PRN 30 days methylcellulose (laxative) (Citrucel) 500 mg PO DAILY metoprolol succinate ER 100 mg PO DAILY 90 days multivitamin (Daily Multi-Vitamin tablet) 1 tab PO DAILY omeprazole 20 mg PO DAILY 90 days ondansetron HCl 2 - 4 mg (0.5 - 1 x 4 mg) PO Q8H PRN 30 days polyethylene glycol 3350 (Miralax) 17 grams PO DAILY Tobacco use date assessed: 03/27/23 Fall risk assessment: 1 Fall in past year Last assessed Fall Risk: 03/27/23 Dental Screening Dental Screen Date: 03/27/23 Did you have a dental visit in the last 12 months?: Yes Did you have a dental problem in the last 6 months where you did not have access to dental care?: No Was dental information given to patient?: Patient has dentist HPI HTN/Hypercholesteremia F/U HPI Details Patient comes in today for her follow up visit States that she just had her follow up labs done a few minutes ago Reports that her currently has stage 4 esophageal cancer (diagnosed last year) and it has been hard on her emotionally these past couple of years She still has trouble sleeping at night despite her current Rx (Lorazepam 0.5 mg) Relates that she was prescribed Triazolam by Dr. Betancur in the past and she did well on the Rx but she prefers Lorazepam as it supposedly has less potential to be habit-forming Has been tried on Trazodone before and states that she could not tolerate the Rx Would like to see if we can increase her Lorazepam dosage up to 1 mg temporarily to help her get some sleep at night She denies any headaches or dizziness Denies any chest pains, no increased SOB No nausea/vomiting, no abdominal pain but she still has some dysphagia at times - had esophageal dilatation done by GI last years with some improvement of her symptoms Still has on and off constipation but states that her current Rx helps with her symptoms Needs her Cymbalta 60 mg Rx refilled PFSH Medical History Macrocytosis without anemia Pure hypercholesterolemia Obesity (BMI 30-39.9) GERD without esophagitis Vitamin D deficiency Epilepsy Acquired hypothyroidism Benign essential hypertension Obstructive sleep apnea Lumbar and sacral arthritis Chronic pain syndrome Substance use disorder Generalized anxiety disorder Fibromyalgia Surgical History History of esophagogastroduodenoscopy (EGD) H/O colonoscopy History of knee replacement History of cholecystectomy Family History Mother No problems noted. Father No problems noted. Daughter Substance use disorder Son Substance use disorder Social History Housing: House Alcohol intake: current Alcohol intake frequency: holidays/special occasions only Patient Tobacco Use Status: Former Tobacco user e-Cigarette/Vaping Use: Never Used Second Hand Smoke Exposure: Yes service: No Current occupational status: employed Cognitive needs: No Hearing needs: No Vision needs: Yes Questionnaire PHQ-9 Over the last 2 weeks, how often have you been bothered by any of the following problems? 1. Little interest or pleasure in doing things: not at all 2. Feeling down, depressed, or hopeless: not at all 3. Trouble falling or staying asleep, or sleeping too much: not at all 4. Feeling tired or having little energy: not at all 5. Poor appetite or overeating: not at all 6. Feeling bad about yourself - or that you are a failure or have let yourself or your family down: not at all 7. Trouble concentrating on things, such as reading the newspaper or watching television: not at all 8. Moving or speaking so slowly that other people could have noticed. Or the opposite - being so fidgety or restless that you have been moving around a lot more than usual: not at all 9. Thoughts that you would be better off or of hurting yourself in some way: not at all Total score: 0 Depression Screening Interpretation: Negative Depression Screening Done: Yes [id number] - PHQ-9 Billing: Yes Source: Developed by Drs. Jaswinder Ferrara, Ling Wall, Kushal De La Cruz and colleagues, with an educational jesus from [employer]. Thrive Questionnaire Date Thrive assessed: 03/27/23 I am a: Patient What is your living situation today?: I have a steady place to live Within the past 12 months, did the food you bought not last and you didn't have the money to get more?: Never true Within the past 12 months, did you worry whether your food would run out before you got money to buy more?: Never true Do you have trouble paying for medicines?: No Do you have trouble getting transportation to medical appointments?: No Do you have trouble paying your heating and electricity bill?: No Do you have trouble taking care of your child, family member or friend?: No Do you have trouble with day-to-day activities such as bathing, preparing meals, shopping, managing finances, etc.?: No Are you currently unemployed and looking for a job?: No Are you interested in more education?: No Please select the resources that you would like help with: None Currently or been in a relationship where the following occur: no concerns reported THRIVE Score: 0 AUDIT C Alcohol Use Questionnaire (AUDIT-C) 1. How often do you have a drink containing alcohol?: Never 3. How often do you have six or more drinks on one occasion?: Never Total Score: 0 Score Reviewed/Action Taken: Yes JANELLE-7 AMB Questionnaire JANELLE-7 Date JANELLE - 7 assessed: 03/27/23 Feeling nervous, anxious, or on edge: 2 = More than half the days Not being able to stop or control worryin = More than half the days Worrying too much about different things: 0 = Not at all Trouble relaxin = Not at all Being so restless that it is hard to sit still: 0 = Not at all Becoming easily annoyed or irritable: 0 = Not at all Feeling afraid as if something awful might happen: 0 = Not at all Total JANELLE-7 score (0-4 normal; 5-9 mild; 10-14 moderate; 15-21 severe): 4 Source: Developed by Drs. Jsawinder Ferrara, Ling Wall, Kushal De La Cruz and colleagues, with an educational jesus from [employer]. Review of Systems Const Denies chills, Reports difficulty sleeping, Denies fatigue, Denies fever(s) and Denies headache(s) ENT Reports dysphagia (on and off - see HPI), Denies dizziness, Denies otalgia, Denies headache(s), Denies neck pain, Denies odynophagia and Denies sore throat Card Denies chest pain, Denies palpitations and Denies dyspnea Resp Denies chest congestion, Denies cough and Denies dyspnea GI Denies abdominal pain, Reports constipation (at times), Reports dysphagia (on and off - see HPI), Denies heartburn, Denies diarrhea, Denies nausea, Denies odynophagia and Denies vomiting Denies difficulty voiding, Denies nocturia and Denies dysuria Musc Denies neck pain Neuro Denies dizziness and Denies headache(s) Psych Reports anxiety and Denies depression Endo Denies fatigue and Denies palpitations Physical exam (Primary Care) Vital Signs: Last Vital Signs Pulse 62 03/27/23 15:00 BP 124/80 03/27/23 15:00 Pulse Ox 97 03/27/23 15:00 Oxygen Delivery Method Room Air 03/27/23 15:00 BMI result Body Mass Index 35.4 Tobacco/Smoking Status: Tobacco use Status Tobacco use date assessed 03/27/23 03/27/23 15:02 Patient Tobacco Use Status Former Tobacco user 03/27/23 15:02 e-Cigarette/Vaping Use Never Used 03/27/23 15:02 PHQ-9: PHQ-9 Score PHQ-9: Total score 0 03/27/23 16:10 Depression Screening Interpretation: Negative Thrive Assessment: Date of Thrive Assessment Date Thrive assessed 03/27/23 03/27/23 15:02 Currently or been in a relationship where the following occur: no concerns reported Const General: no acute distress and alert HENMT Ears: TM's normal bilaterally and EAC's normal Throat: Yes posterior oropharynx normal and Yes tonsils normal (no TP congestion) Neck Neck: Yes no lymphadenopathy and Yes supple Resp Auscultation: clear to auscultation bilaterally, no rales and no wheezes Cardio Rate: regular rate Rhythm: regular rhythm Heart sounds: no murmurs GI Palpation (GI): Soft to palpation and nontender Auscultation: normal bowel sounds Back/Spine/Pelvis Cervical Spine: Cervical spine tenderness Thoracic/Lumbar Spine: thoracic spinal tenderness at T7 ((+) compression fracture) and lumbar spinal tenderness Skin Rashes: no rashes Extrem General: Yes no clubbing, cyanosis or edema Assessment and Plan Assessment & Plan (1) Pure hypercholesterolemia: Code(s): E78.00 - Pure hypercholesterolemia, unspecified Plan: Reinforced low cholesterol diet Will follow up the results of her labs done just a few minutes ago Relates that she had problems tolerating some statins in the past and still prefers to avoid taking them as much as possible Will have her recheck her labs and fasting lipids in 6 months for follow up (2) Chronic low back pain: Comment: (+) T7 compression fracture Code(s): M54.50 - Low back pain, unspecified; G89.29 - Other chronic pain Qualifiers: Back pain laterality: unspecified Sciatica presence: without sciatica Qualified Code(s): M54.50 - Low back pain, unspecified; G89.29 - Other chronic pain Plan: Follow up with pain management as scheduled or as needed Was on opioids in the past but was switched over to Suboxone, with plans to be transitioned over to [place] subsequently but patient decided not to pursue this and went back on Suboxone for a while but was eventually able to wean herself off Suboxone a couple of years ago in 2021 States that she does not wish to go back on opioids and plans to just try to continue controlling her pain through other means Has been started on Duloxetine and feels that it is helping somewhat - currently takes 60 mg daily in the winter to also help with her winter blues and goes back down to 30 mg daily in the spring/summer She also takes OTC Ibuprofen PRN for additional relief when needed (3) Fibromyalgia: Code(s): M79.7 - Fibromyalgia Plan: Continue Duloxetine 60 mg QD presently; she drops her dose down to 30 mg in the spring/summer She is again encouraged to stay active and to exercise regularly as tolerated to help better control/manage her fibromyalgia symptoms (4) Benign essential hypertension: Code(s): I10 - Essential (primary) hypertension Plan: Reinfroced low sodium diet - goal is systolic BP of 120 to 130 mm or less Continue Lisinopril-HCT 20-12.5 mg 2 tablets QD (5) Acquired hypothyroidism: Code(s): E03.9 - Hypothyroidism, unspecified Plan: Continue Levothyroxine 125 mcg QD Will follow up the results of her labs, including her TFTs, done a few minutes ago (6) Impaired fasting glucose: Code(s): R73.01 - Impaired fasting glucose Plan: Her fasting glucose level was high on her labs done previously HgbA1c was at 6.0% when last checked in July 2022 Reinforced low calorie diet/exercise as tolerated (7) Epilepsy: Comment: S/P head injury in 2017 resulting in a subdural hematoma Code(s): G40.909 - Epilepsy, unspecified, not intractable, without status epilepticus Qualifiers: Epilepsy type: unspecified Intractability: not intractable Status epilepticus: without status epilepticus Qualified Code(s): G40.909 - Epilepsy, unspecified, not intractable, without status epilepticus Plan: Follow up with [facility] as scheduled (was seen by Dr. Harshad Alarcon in the past) Continue Levetiracetam 500 mg BID (8) Obstructive sleep apnea: Comment: uses CPAP Code(s): G47.33 - Obstructive sleep apnea (adult) (pediatric) Plan: Relates that she had a sleep study done many years ago (possibly > 10 yrs) and has been using a CPAP device over the years She was previoulsy referred her to Sleep Medicine for further management but it does not look like she has been seen and she also does not appear to have had any appointments scheduled so far (9) Macrocytosis without anemia: Code(s): D75.89 - Other specified diseases of blood and blood-forming organs Plan: Patient's B12 and Folate levels were normal when checked previously H/H is still normal on her most recent labs done last year - she is not anemic States that she drinks alcohol very rarely and only socially Advised that her macrocytosis may be actually due to her Levetiracetam as anticonvulsants have been known to be associated with macrocytosis Will continue to monitor this for now and consider referral to hematology for further evaluation only if this progresses (10) Vitamin D deficiency: Code(s): E55.9 - Vitamin D deficiency, unspecified Plan: Continue Vitamin D3 1000 units QD (11) Osteopenia: Code(s): M85.80 - Other specified disorders of bone density and structure, unspecified site Qualifiers: Osteopenia location: unspecified Qualified Code(s): M85.80 - Other specified disorders of bone density and structure, unspecified site Plan: Results of her BMD done recently reviewed and discussed with patient States that she had a prior BMD done many years ago at another facility and we do not have access to that so her current BMD will act as her baseline scan Advised that based on her results, she has osteopenia but her T score is at -2.4 and this is bordering more towards osteoporosis category (>-2.5) Have advised her to continue with her daily Vitamin D and Calcium supplements and to start exercising regularly but reinforced fall precautions Have gone over with patient briefly the numerous treatment options but advised that the most common are the bisphosphonates and weekly Alendronate is the most widely prescribed oral bisphosphonates Patient states that she is leaning more towards not taking any Rx for her bone for now and will see how her BMD is again in a couple of years - will discuss this further with Dr. Al (her OB-Ratings Analyst) at her upcoming appt with him (12) GERD without esophagitis: Code(s): K21.9 - Gastro-esophageal reflux disease without esophagitis Plan: Dietary restrictions reinforced Continue Omeprazole 20 mg QD (13) Generalized anxiety disorder: Code(s): F41.1 - Generalized anxiety disorder Plan: Will agree to increase patient's Lorazepam to 1 mg QD for now - she takes Lorazepam mostly Q HS to help her sleep and states that her current 0.5 mg dose has not been helping lately, most likely due to increased stress / anxiety related to her 's current cancer diagnosis Have considered starting patient on medications that are actually indicated for insomnia and sleep difficulties to more directly address her main/actual issue (have reminded her that Lorazepam is not really indicated for sleep) but this will mean starting her on additional medications that are classified as controlled substances - she has mentioned being prescribed Triazolam in the past - and ultimately have decided it may be in the patient's best interest to keep her pill burden low (14) Obesity (BMI 30-39.9): Code(s): E66.9 - Obesity, unspecified Plan: Reinforced diet/exercise as tolerated/lose weight Plan Follow up in 6 months Orders: Orders Hemoglobin A1c 6 Months E11.9 - Type 2 diabetes mellitus without complications Thyroid Stimulating Hormone 6 Months E03.9 - Hypothyroidism, unspecified Free T4 (Free Thyroxine) 6 Months E03.9 - Hypothyroidism, unspecified Complete Blood Count Auto Diff 6 Months D75.89 - Other specified diseases of blood and blood-forming organs Comprehensive [place]nard. Panel Fast 6 Months E78.00 - Pure hypercholesterolemia, unspecified Lipid Panel 6 Months E78.00 - Pure hypercholesterolemia, unspecified Levetiracetam Keppra 6 Months G40.909 - Epilepsy, unspecified, not intractable, without status epilepticus Medications: Changed From lorazepam 1 mg PO DAILY 7 days PRN 7 tabs 0RF anxiety To lorazepam 1 mg PO DAILY PRN 30 tabs 0RF anxiety 30 days From duloxetine To take during winter 60 mg PO DAILY To duloxetine To take during winter 60 mg PO DAILY 90 caps 1RF 90 days Coding Level of Care Code Est Pt Level 4 (34407) Diagnoses Pure hypercholesterolemia E78.00 Chronic low back pain without sciatica, unspecified back pain laterality M54.50; G89.29 Back pain laterality: unspecified Sciatica presence: without sciatica Fibromyalgia M79.7 Benign essential hypertension I10 Acquired hypothyroidism E03.9 Impaired fasting glucose R73.01 Nonintractable epilepsy without status epilepticus, unspecified epilepsy type G40.909 Epilepsy type: unspecified Intractability: not intractable Status epilepticus: without status epilepticus Obstructive sleep apnea G47.33 Macrocytosis without anemia D75.89 Vitamin D deficiency E55.9 Osteopenia, unspecified location M85.80 Osteopenia location: unspecified GERD without esophagitis K21.9 Generalized anxiety disorder F41.1 Obesity (BMI 30-39.9) E66.9
== END 2023-03-27 15:42 | disposition home or self-care (01) ==
PROVIDERS: PCP Internal Medicine; Visit Provider Internal Medicine
DX: E78.00 Pure hypercholesterolemia, unspecified (principal); G40.909 Epilepsy, unspecified, not intractable, without status epilepticus; M54.50 Low back pain, unspecified; G89.29 Other chronic pain; M79.7 Fibromyalgia; I10 Essential (primary) hypertension; E03.9 Hypothyroidism, unspecified; R73.01 Impaired fasting glucose; G47.33 Obstructive sleep apnea (adult) (pediatric); D75.89 Other specified diseases of blood and blood-forming organs; E55.9 Vitamin D deficiency, unspecified; M85.80 Other specified disorders of bone density and structure, unspecified site
CPT/HCPCS: 99214

== ENCOUNTER 2023-05-19 13:34 | Emergency (ER) | payer MEDICARE, SELFPAY ==
--- NOTE | ~2023-05-19 | XR_ITS ---
EXAMINATION: XR HAND/WRIST, RIGHT CLINICAL INFORMATION: Laceration to the palm at the base of the fifth question foreign body COMPARISON: Right wrist radiographs 01/22/2019 TECHNIQUE: PA, lateral, and oblique views of the right hand and wrist. FINDINGS: No acute fracture or dislocation. Amhz-pe-jmskeiew osteoarthritis of the hand and wrist most notably at the radiocarpal joint space with joint space. Soft tissues are unremarkable. No radiopaque foreign body. XR/XR hand wrist RT IMPRESSION: 1. No radiopaque foreign body. 2. [id number]-[id number] osteoarthritis of the hand and wrist.
[2023-05-19 13:36] VITALS: BP 183/74; PULSE 73; RESP 18; TEMP 36.7; O2SAT 97; BMI 37.4
--- NOTE | 2023-05-19 13:36 | ED.WOUNDLAC ---
HPI - Wound/Laceration General Chief Complaint: Wound/Laceration Stated Complaint: Hand laceration Time Seen by Provider: 05/19/23 13:47 Source: patient, family (), RN notes reviewed and old records reviewed Mode of arrival: ambulatory Limitations: no limitations History of Present Illness HPI narrative: 67-year-old female with pmhx significant for hypertension, HDL, hypothyroidism, TBI, seizures, GERD, vitamin-D deficiency, VIPUL, fibromyalgia, anxiety presents to the emergency department today with laceration to right hand s/p mechanical fall while holding a glass. She reports missing the bottom step of the stairs, causing her to fall forward. At the time she was holding a glass coffee cup in her right hand and reports laceration to her palm. She has not on anticoagulation. No head strike or LOC. she immediately washed out the area and came to the ED. at present she reports pain to the right hand along with numbness/tingling of the right 5th digit just distal to the laceration. She did not take anything for pain prior to arrival. Denies fever, chills, nausea or vomiting. Tetanus not up-to-date. Related Data Home Medications Medication Instructions Recorded Confirmed ibuprofen 200 mg capsule See Rx Instructions PO Q6H PRN Pain 04/19/21 03/27/23 multivitamin (Daily Multi-Vitamin 1 tab PO DAILY 01/22/23 03/27/23 tablet) Previous Rx's Medication Instructions Recorded cholecalciferol (vitamin D3) 25 25 mcg PO DAILY 90 days #90 caps 04/19/21 mcg (1,000 unit) capsule methylcellulose (laxative) 500 mg 500 mg PO DAILY #90 tabs 04/09/22 tablet (Citrucel) polyethylene glycol 3350 17 17 g PO DAILY #510 grams 04/09/22 gram/dose oral powder (Miralax) levothyroxine 125 mcg tablet 125 mcg PO DAILY 90 days #90 tabs 06/27/22 omeprazole 20 mg capsule,delayed 20 mg PO DAILY 90 days #90 caps 07/16/22 release albuterol sulfate 90 mcg/actuation 2 puff inhalation Q4-6H PRN 01/09/23 aerosol inhaler shortness of breath or wheezing #8.5 grams metoprolol succinate 100 mg 100 mg PO DAILY 90 days #90 tabs 02/05/23 tablet,extended release 24 hr lisinopril 20 2 tab PO DAILY 90 days #180 tabs 03/06/23 mg-hydrochlorothiazide 12.5 mg tablet lorazepam 0.5 mg tablet 0.5 mg PO BEDTIME PRN anxiety 30 03/11/23 days #30 tabs duloxetine 60 mg capsule,delayed 60 mg PO DAILY 90 days #90 caps 03/27/23 release ondansetron HCl 4 mg tablet 2 - 4 mg (0.5 - 1 x 4 mg) PO Q8H 04/03/23 PRN for nausea/vomiting 30 days #90 tabs levetiracetam 500 mg tablet 500 mg PO BID #180 tabs 04/24/23 duloxetine 30 mg capsule,delayed 30 mg PO DAILY 30 days #30 caps 05/06/23 release lorazepam 1 mg tablet 1 mg PO DAILY PRN anxiety 30 days 05/06/23 #30 tabs amoxicillin 875 mg-potassium 1 tab PO BID 5 days #10 tabs 05/19/23 clavulanate 125 mg tablet Allergies Allergy/AdvReac Type Severity Reaction Status Date / Time Sulfa (Sulfonamide Allergy Intermediate Hives Verified 03/27/23 15:54 Antibiotics) [SULFA (SULFONAMIDE ANTIBIOTICS)] [id number] Reductase AdvReac Intermediate myalgia; Verified 03/27/23 15:54 Inhibitor word retrieval difficulty aspirin [ASA] AdvReac Mild GI UPSET Verified 03/27/23 15:54 Review of Systems Review of Systems: Constitutional: No fever, chills, fatigue, night sweats, weight changes ENT/Mouth: No ear pain, hearing loss, nasal congestion, sinus pain, rhinorrhea, sore throat Eyes: No eye pain, swelling, redness, vision changes, discharge Cardio: No chest pain, palpitations, FARLEY, orthopnea, peripheral edema Pulm: No SOB, cough, sputum, wheezing, dyspnea, hemoptysis GI: No nausea, vomiting, hematemesis, abdominal pain, diarrhea, constipation, hematochezia, melena : No irregular bleeding, dysuria, frequency, urgency, hesitancy, hematuria, flank pain, urinary flow changes, urinary incontinence or retention MSK: No back pain, neck pain, joint pain, myalgias Skin: No lesions, rashes, +right palm laceration Neuro: No weakness, numbness, paresthesias, LOC, dizziness, headache Psych: No anxiety/panic, depression, SI/HI, AH/VH All other systems reviewed and are negative. [facility] Past Medical History Attestation statement: The following information was validated with the patient. Source: old records reviewed and nursing notes reviewed Medical History Macrocytosis without anemia Pure hypercholesterolemia Obesity (BMI 30-39.9) GERD without esophagitis Vitamin D deficiency Epilepsy Acquired hypothyroidism Benign essential hypertension Obstructive sleep apnea Lumbar and sacral arthritis Chronic pain syndrome Substance use disorder Generalized anxiety disorder Fibromyalgia Surgical History History of esophagogastroduodenoscopy (EGD) H/O colonoscopy History of knee replacement History of cholecystectomy Family History Family History Mother No problems noted. Father No problems noted. Daughter Substance use disorder Son Substance use disorder Social History Social History Housing: House Alcohol intake: current Alcohol intake frequency: holidays/special occasions only Patient Tobacco Use Status: Former Tobacco user Smoked in Last 30 Days: No e-Cigarette/Vaping Use: Never Used Second Hand Smoke Exposure: Yes Use of substances other than those prescribed or required for medical reasons: No Advance Directives: No Advance Directives Information Provided: Yes service: No Current occupational status: employed Cognitive needs: No Hearing needs: No Vision needs: Yes Physical Exam Vital Signs: Vital Signs: Last Vital Signs Temp 97.5 F 05/19/23 17:27 Pulse 60 05/19/23 17:27 Resp 18 05/19/23 17:27 BP 177/86 H 05/19/23 17:27 Pulse Ox 99 05/19/23 17:27 O2 Del Method Room Air 05/19/23 17:27 BMI result Body Mass Index 37.4 Hypertensive, vitals otherwise WNL Const: General: cooperative, healthy appearing, comfortable and no acute distress Orientation/consciousness: patient oriented x3 Limitations: no limitations HEENT: Head: Yes normal to inspection, Yes normocephalic and Yes atraumatic Eyes: General: appearance normal, both eyes and all related structures Conjunctivae: conjunctivae normal Sclerae: sclerae normal Pupils: Equal, round and reactive pupils present EOM: EOMs intact bilaterally Neck: Neck: Yes normal visual inspection and Yes full ROM Chest: Chest palpation & inspection: normal inspection of the chest and normal palpation of entire chest wall Resp: Effort & Inspection: normal respiratory effort Auscultation: clear to auscultation bilaterally Cardio: Rate: regular rate Rhythm: regular rhythm GI: Inspection: Yes normal to inspection Skin: Other: + refer to photos of right hand below + there is a 3 cm linear laceration noted to the ulnar aspect of right palm at the base of the 4th and 5th MCP. Some subcu tissue protruding through laceration. No involvement of deeper structures. After extensive irrigation, no foreign body identified. Full ROM intact to right wrist and all MCP, PIP and DIPs of right hand. slightly diminished sensation of the distal 5th digit. no subungal hematoma or nail bed injury. no snuffbox tenderness. cap refill <2 seconds. Finger to thumb opposition intact. Strength intact. Neuro: Other: Strength 5/5 intact throughout.? Neurovascular intact distally.? General: patient oriented x3 and gait normal Cranial nerves: Yes Equal, round and reactive pupils present Extrem: Other: + refer to above Course Course Course Narrative: This is a rapid medical exam: Additional HPI, ROS, PE not included below will be deferred to primary provider. Patient is a 67-year-old right hand dominant female presenting to the emergency department with complaint of right hand laceration which occurred [employer]. She was carrying a glass coffee cup, tripped and fell, causing the glass to break and cutting her hand. Unsure last Tdap. Patient has 2cm linear laceration with visible subcutaneous tissue to palmar surface of right hand in area of 5th MCP joint. Plan: Tdap, will need sutures Reevaluation(s) Reevaluation #1: 1700-- Tetanus updated. X-ray of right hand does not show acute fracture or dislocation. No retained radiopaque foreign body. There is [id number] osteoarthritis of the right hand/wrist. Laceration extensively irrigated. No retained foreign body. Laceration repaired with 8 4-0 nylon sutures after lidocaine injections. Patient tolerated procedure well. Given slight diminished sensation to the distal aspect of the right 5th digit, I suspect the laceration hit a nerve. She still has full ROM intact to the 5th and 4th digits. No concern for ligament or tendon injury. As a precaution, will place patient on Augmentin and provide her with a referral to Dr. Alberto (hand surgery). Advised patient to return in 7-10 days for suture removal. Patient has remained stable throughout ED visit today. Discussed worrisome signs and symptoms and when to return to the ED. All questions answered at this time. Patient is agreeable with disposition and stable for discharge. Medications Administered Discontinued Medications Generic Name Dose Route Start Last Admin Trade Name Freq PRN Reason Stop Dose Admin Diphtheria/Tetanus/Acell Pertussis 0.5 ml 05/19/23 13:40 05/19/23 14:23 Diphth,Pertus(Acell),Tet Adult 0.5 Ml Syringe IM 05/19/23 13:41 0.5 ml .ONCE ONE Administration Lidocaine HCl 5 ml 05/19/23 16:05 05/19/23 16:28 Lidocaine Hcl 1 % Mpf 5 Ml Vial INFILTRATI 05/19/23 16:06 5 ml ONCE ONE Administration Lidocaine HCl 5 ml 05/19/23 16:06 05/19/23 16:28 Lidocaine Hcl 1 % Mpf 5 Ml Vial INFILTRATI 05/19/23 16:07 5 ml ONCE ONE Administration Morphine Sulfate 15 mg 05/19/23 14:07 05/19/23 14:25 Morphine Sulfate Immed Release 15 Mg Tablet PO 05/19/23 14:08 15 mg ONCE ONE Administration Ondansetron HCl 4 mg 05/19/23 14:07 05/19/23 14:25 Ondansetron Odt 4 Mg Tab.Rapdis TRANSLINGU 05/19/23 14:08 4 mg ONCE ONE Administration Medical Decision Making Medical Decision Making MDM Narrative: 67-year-old female with pmhx significant for hypertension, HDL, hypothyroidism, TBI, seizures, GERD, vitamin-D deficiency, VIPUL, fibromyalgia, anxiety presents to the emergency department today with laceration to right hand s/p mechanical fall while holding a glass. Patient hypertensive, vitals otherwise WNL. Afebrile. She is nontoxic-appearing and in no acute distress. On exam, 3 cm linear laceration noted to the ulnar aspect of right palm at the base of the 4th and 5th MCP. Some subcu tissue protruding through laceration. No involvement of deeper structures. After extensive irrigation, no foreign body identified. Full ROM intact to right wrist and all MCP, PIP and DIPs of right hand. slightly diminished sensation of the distal 5th digit. no subungal hematoma or nail bed injury. no snuffbox tenderness. cap refill <2 seconds. Finger to thumb opposition intact. Strength intact. Differential diagnosis includes abrasion, laceration, retained foreign body, nerve injury. Lower suspicion for tendon or ligament rupture. Plan for radiographs, tetanus update, pain control, and suture repair. Differential Diagnosis Differential Diagnoses: The differential diagnosis associated with the presentation includes As above Admission/Observation Not indicated Independent Interpretation I performed an independent interpretation of an: Plain X-Ray Interpretation: I have personally reviewed x-ray and agree with radiologist's interpretation. Radiology Impression Discussion of test interpretation with radiology: I have reviewed the radiologist's reading. Radiologist Impression: EXAMINATION: XR HAND/WRIST, RIGHT CLINICAL INFORMATION: Laceration to the palm at the base of the fifth question foreign body COMPARISON: Right wrist radiographs 01/22/2019 TECHNIQUE: PA, lateral, and oblique views of the right hand and wrist. FINDINGS: No acute fracture or dislocation. [id number] osteoarthritis of the hand and wrist most notably at the radiocarpal joint space with joint space. Soft tissues are unremarkable. No radiopaque foreign body. XR/XR hand wrist RT IMPRESSION: 1. No radiopaque foreign body. 2. [id number] osteoarthritis of the hand and wrist. Independent Historian Clinical information obtained from an independent historian. History obtained from or confirmed by: Spouse () External Record Review External record reviewed: Inpatient record, Office record, Outpatient record, Prior outpatient labs, Prior outpatient radiology, Primary care record and Outside ED record Prescription Management I considered prescription management with: Pain Medication and Antibiotic (Augmentin) Social Determinants Patient?s care significantly limited by Social Determinants of Health including: Other Social Determinant of Health Procedures Laceration Laceration 1: Site: hand Side (If applicable): right Size (cm): 3 Description: linear Depth: simple, single layer Local Anesthetic: lidocaine 1% Amount of anesthesia used (mL): 10 Pre-repair: wound explored, irrigated extensively, deep structures intact and extensive debridement Skin layer closed with: nylon Size (cm): 4-0 Number of sutures: 8 Technique: simple, interrupted Critical Care Time Critical Care Time Critical Care Time: Yes Total Critical Care Time: 31 Attestation: Critical care time in the amount of 31 minutes has been provided to the patient in terms of direct patient care, frequent reevaluation, review and interpretation of medical data and results, and management of potentially life-threatening conditions. This is all outside of any medical procedures. Discharge Plan Discharge Clinical Impression: Laceration of right palm Patient Disposition: Home, Self-Care Instructions: Care For Your Stitches (ED), Laceration (ED), Stitches Removal (ED) Additional Instructions: The laceration on your right palms closed with 8 stitches today. You need to return to the ED or to urgent care in 7-10 days to have these removed. Keep your stitches clean dry and intact. Augmentin is an antibiotic that has been sent to your pharmacy. Take this over the next 5 days to prevent infection. On Augmentin, softer bowel movements are to be expected. Call your provider if you move your bowels more than 4 times a day, your bowel movements are almost all liquid, or you get a rash.? Your tetanus vaccine was updated today. We discussed signs and symptoms of infection. Please return to the ED for any new or worsening symptoms. In the case of an emergency call 911. You have been provided with the information to our hand surgeon, Dr. Alberto. You may contact her if you wish to establish care. Prescriptions: New amoxicillin-pot clavulanate 875-125 mg tablet 1 tab PO BID 5 Days Qty: 10 0RF No Action levothyroxine 125 mcg tablet 125 mcg PO DAILY 90 Days Qty: 90 3RF metoprolol succinate 100 mg tablet extended release 24 hr 100 mg PO DAILY 90 Days Qty: 90 3RF lisinopril-hydrochlorothiazide 20-12.5 mg tablet 2 tab PO DAILY 90 Days Qty: 180 3RF lorazepam 0.5 mg tablet 0.5 mg PO BEDTIME PRN (Reason: anxiety) 30 Days Qty: 30 0RF ondansetron HCl 4 mg tablet 2 - 4 mg PO Q8H PRN (Reason: for nausea/vomiting) 30 Days Qty: 90 1RF levetiracetam 500 mg tablet 500 mg PO BID Qty: 180 3RF duloxetine 30 mg capsule,delayed release(DR/EC) 30 mg PO DAILY 30 Days Qty: 30 3RF lorazepam 1 mg tablet 1 mg PO DAILY PRN (Reason: anxiety) 30 Days Qty: 30 0RF albuterol sulfate 90 mcg/actuation HFA aerosol inhaler 2 puff inhalation Q4-6H PRN (Reason: shortness of breath or wheezing) Qty: 8.5 0RF duloxetine 60 mg capsule,delayed release(DR/EC) 60 mg PO DAILY 90 Days Qty: 90 1RF Rx Instructions: To take during winter multivitamin [Daily Multi-Vitamin] Tablet 1 tab PO DAILY ibuprofen 200 mg capsule See Rx Instructions PO Q6H PRN (Reason: Pain) Rx Instructions: 1 to 3 capsules PO every 6 hours PRN; cholecalciferol (vitamin D3) 25 mcg (1,000 unit) capsule 25 mcg PO DAILY 90 Days Qty: 90 3RF polyethylene glycol 3350 [Miralax] 17 gram/dose powder 17 g PO DAILY Qty: 510 2RF Citrucel 500 mg tablet 500 mg PO DAILY Qty: 90 2RF Rx Instructions: take it with full glass of water omeprazole 20 mg capsule,delayed release(DR/EC) 20 mg PO DAILY 90 Days Qty: 90 1RF Referrals: Yvrose Alberto MD [Physician] - Stand Alone Forms: Work/School Release Interventions: ED Discharge Assessment Last Done: 05/19/23 17:27 Discharge Date/Time: 05/19/23 17:28
[2023-05-19] MEDS: Diphth,Pertus(ACell),Tet Adult 0.5 ML SYRINGE IM (14:23)
[2023-05-19] MEDS: Ondansetron ODT 4 MG TAB.RAPDIS TRANSLINGU (14:25)
[2023-05-19] MEDS: Morphine Sulfate Immed Release 15 MG TABLET PO (14:25)
[2023-05-19 15:10] VITALS: BP 167/75; PULSE 58; RESP 20; TEMP 36.7; O2SAT 98
[2023-05-19] MEDS: Lidocaine HCl 1 % MPF 5 ML VIAL INFILTRATI ×2 (16:28)
[2023-05-19 17:27] VITALS: BP 177/86; PULSE 60; RESP 18; TEMP 36.4; O2SAT 99
== END 2023-05-19 17:28 | disposition home or self-care (01) ==
PROVIDERS: Emergency Provider Emergency Medicine; PCP Internal Medicine
DX: S61.411A Laceration without foreign body of right hand, initial encounter (principal); I10 Essential (primary) hypertension; G40.909 Epilepsy, unspecified, not intractable, without status epilepticus; W25.XXXA Contact with sharp glass, initial encounter; W10.9XXA Fall (on) (from) unspecified stairs and steps, initial encounter; Y93.9 Activity, unspecified; Y92.9 Unspecified place or not applicable; Y99.9 Unspecified external cause status
CPT/HCPCS: 12042; 73110; 73130; 90471; 90715; 99284

== ENCOUNTER 2024-01-03 07:57 | Outpatient (REF) | payer MEDICARE, SELFPAY ==
[2024-01-03 09:24] LABS: Alanine Aminotransferase 21 U/L (0-31); Albumin Level 4.3 g/dL (3.5-5.0); Alkaline Phosphatase 56 U/L (39-117); Anion Gap 14 (12-20); Aspartate Amino Transferase 27 U/L (5-31); Bilirubin Total 0.5 mg/dL (0.0-1.0); Blood Urea Nitrogen 18 mg/dL (9-16); Calcium 9.4 mg/dL (8.4-10.2); Carbon Dioxide 28 mmol/L (22-29); Chloride 97 mmol/L (96-108); Cholesterol 270 mg/dL (<200); Estimated Glomerular Filt Rate 53; Glucose Fasting 111 mg/dL (60-99); HDL Cholesterol 50 mg/dL (>40); LDL Cholesterol Calculated 174 mg/dL (<100); Potassium 3.3 mmol/L (3.3-5.1); Sodium 136 mmol/L (135-145); Total Protein 7.3 g/dL (6.5-8.0); Triglycerides 230 mg/dL (<150)
== END 2024-01-03 07:58 | disposition home or self-care (01) ==
LOC: HO.LAB 07:57
PROVIDERS: PCP Internal Medicine; Visit Provider Internal Medicine
DX: E78.00 Pure hypercholesterolemia, unspecified (principal)
CPT/HCPCS: 36415; 80053; 80061

== ENCOUNTER 2024-01-06 16:11 | Outpatient (AMB) | payer MEDICARE, SELFPAY ==
[2024-01-06 16:13] VITALS: BP 116/78; PULSE 63; O2SAT 98; BMI 35.9
--- NOTE | 2024-01-06 16:13 | A.OFFPC_ITS ---
Vital Signs 01/06/24 16:13 Height 5 ft Weight 184 lb BMI 35.9 BP 116/78 Blood Pressure Location Lt brachial Position Sitting Pulse 63 Pulse Source Pulse Oximeter Pulse Oximetry (%) 98 Oxygen Delivery Method Room Air Intake Visit Reasons: 6 month f/u [employer] Operator Required: No Accompanied by: Self / Same As Patient Allergies Sulfa (Sulfonamide Antibiotics) [SULFA (SULFONAMIDE ANTIBIOTICS)] Allergy (Intermediate, Verified 01/06/24 17:15) Hives Dnxgjnk-ODN-KsP Reductase Inhibitor Adverse Reaction (Intermediate, Verified 01/06/24 17:15) myalgia; word retrieval difficulty aspirin [ASA] Adverse Reaction (Mild, Verified 01/06/24 17:15) GI UPSET Medication List - Last Reconciled 01/06/24 by Davie Monroe MD albuterol sulfate 90 mcg/actuation 2 puffs inhalation Q4-6H PRN amoxicillin-pot clavulanate 875-125 mg 1 tab PO BID 5 days cholecalciferol (vitamin D3) 25 mcg PO DAILY 90 days duloxetine 60 mg PO DAILY 90 days duloxetine 30 mg PO DAILY 30 days ibuprofen 1 to 3 capsules PO every 6 hours PRN; levetiracetam 500 mg PO BID levothyroxine 125 mcg PO DAILY 90 days lisinopril-hydrochlorothiazide 20-12.5 mg 2 tabs PO DAILY 90 days lorazepam 0.5 mg PO BEDTIME PRN 30 days lorazepam 1 mg PO DAILY PRN 30 days methylcellulose (laxative) (Citrucel) 500 mg PO DAILY metoprolol succinate ER 100 mg PO DAILY 90 days multivitamin (Daily Multi-Vitamin tablet) 1 tab PO DAILY omeprazole 20 mg PO DAILY ondansetron HCl 2 - 4 mg (0.5 - 1 x 4 mg) PO Q8H PRN 30 days polyethylene glycol 3350 (Miralax) 17 grams PO DAILY Tobacco use date assessed: 01/06/24 Fall risk assessment: 2 + Falls in past year Last assessed Fall Risk: 01/06/24 Dental Screening Dental Screen Date: 01/06/24 Did you have a dental visit in the last 12 months?: Yes Did you have a dental problem in the last 6 months where you did not have access to dental care?: No Was dental information given to patient?: Patient has dentist HPI 6 month f/u HPI Details Patient comes in today for her follow up visit States that she feels okay She denies any headaches or dizziness Denies any chest pains, no SOB No nausea/vomiting, no abdominal pain No change in bowel habits noted She had her follow up labs done a few days ago - to discuss her results [facility] Medical History Macrocytosis without anemia Pure hypercholesterolemia Obesity (BMI 30-39.9) GERD without esophagitis Vitamin D deficiency Epilepsy Acquired hypothyroidism Benign essential hypertension Obstructive sleep apnea Lumbar and sacral arthritis Chronic pain syndrome Substance use disorder Generalized anxiety disorder Fibromyalgia Surgical History History of esophagogastroduodenoscopy (EGD) H/O colonoscopy History of knee replacement History of cholecystectomy Family History Mother No problems noted. Father No problems noted. Daughter Substance use disorder Son Substance use disorder Social History Housing: House Alcohol intake: current Alcohol intake frequency: holidays/special occasions only Patient Tobacco Use Status: Former Tobacco user e-Cigarette/Vaping Use: Never Used Second Hand Smoke Exposure: Yes service: No Current occupational status: employed Cognitive needs: No Hearing needs: No Vision needs: Yes Questionnaire PHQ-9 Over the last 2 weeks, how often have you been bothered by any of the following problems? 1. Little interest or pleasure in doing things: not at all 2. Feeling down, depressed, or hopeless: not at all 3. Trouble falling or staying asleep, or sleeping too much: not at all 4. Feeling tired or having little energy: not at all 5. Poor appetite or overeating: not at all 6. Feeling bad about yourself - or that you are a failure or have let yourself or your family down: not at all 7. Trouble concentrating on things, such as reading the newspaper or watching television: not at all 8. Moving or speaking so slowly that other people could have noticed. Or the opposite - being so fidgety or restless that you have been moving around a lot more than usual: not at all 9. Thoughts that you would be better off or of hurting yourself in some way: not at all Total score: 0 Depression Screening Interpretation: Negative Depression Screening Done: Yes 18087 - PHQ-9 Billing: Yes Source: Developed by Drs. Jaswinder Ferrara, Ling Wall, Kushal De La Cruz and colleagues, with an educational jesus from [employer] Thrive Questionnaire Date Thrive assessed: 01/06/24 I am a: Patient What is your living situation today?: I have a steady place to live Within the past 12 months, did the food you bought not last and you didn't have the money to get more?: Never true Within the past 12 months, did you worry whether your food would run out before you got money to buy more?: Never true Do you have trouble paying for medicines?: No Do you have trouble getting transportation to medical appointments?: No Do you have trouble paying your heating and electricity bill?: No Do you have trouble taking care of your child, family member or friend?: No Do you have trouble with day-to-day activities such as bathing, preparing meals, shopping, managing finances, etc.?: No Are you currently unemployed and looking for a job?: No Are you interested in more education?: No Please select the resources that you would like help with: None Currently or been in a relationship where the following occur: No concerns reported THRIVE Score: 0 AUDIT C Alcohol Use Questionnaire (AUDIT-C) 1. How often do you have a drink containing alcohol?: Monthly or less 2. How many drinks containing alcohol do you have on a typical day when you are drinking?: 1 or 2 3. How often do you have six or more drinks on one occasion?: Never Total Score: 1 Score Reviewed/Action Taken: Yes JANELLE-7 AMB Questionnaire JANELLE-7 Date JANELLE - 7 assessed: 01/06/24 Feeling nervous, anxious, or on edge: 2 = More than half the days Not being able to stop or control worryin = More than half the days Worrying too much about different things: 0 = Not at all Trouble relaxin = Not at all Being so restless that it is hard to sit still: 0 = Not at all Becoming easily annoyed or irritable: 0 = Not at all Feeling afraid as if something awful might happen: 0 = Not at all Total JANELLE-7 score (0-4 normal; 5-9 mild; 10-14 moderate; 15-21 severe): 4 Source: Developed by Drs. Jaswinder Ferrara, Ling Wall, Kushal De La Cruz and colleagues, with an educational jesus from [employer] Review of Systems Const Denies chills, Reports difficulty sleeping, Denies fatigue, Denies fever(s) and Denies headache(s) ENT Denies dysphagia, Denies dizziness, Denies otalgia, Denies headache(s), Reports neck pain, Denies odynophagia and Denies sore throat Card Denies chest pain, Denies palpitations and Denies dyspnea Resp Denies chest congestion, Denies cough and Denies dyspnea GI Denies abdominal pain, Reports constipation (at times), Denies dysphagia, Denies heartburn, Denies diarrhea, Denies nausea, Denies odynophagia and Denies vomiting Denies difficulty voiding, Denies nocturia, Denies dysuria and Denies urinary urgency Musc Reports back pain and Reports neck pain Skin/Breast Denies rash Neuro Denies dizziness and Denies headache(s) Psych Reports anxiety and Denies depression Endo Denies fatigue and Denies palpitations Physical exam (Primary Care) Vital Signs: Last Vital Signs Pulse 63 01/06/24 16:13 BP 116/78 01/06/24 16:13 Pulse Ox 98 01/06/24 16:13 Oxygen Delivery Method Room Air 01/06/24 16:13 BMI result Body Mass Index 35.9 Tobacco/Smoking Status: Tobacco use Status Tobacco use date assessed 01/06/24 01/06/24 16:14 Patient Tobacco Use Status Former Tobacco user 01/06/24 16:14 e-Cigarette/Vaping Use Never Used 01/06/24 16:14 PHQ-9: PHQ-9 Score PHQ-9: Total score 0 01/06/24 17:18 Depression Screening Interpretation: Negative Thrive Assessment: Date of Thrive Assessment Date Thrive assessed 01/06/24 01/06/24 16:14 Currently or been in a relationship where the following occur: No concerns reported Const General: no acute distress and alert HENMT Ears: TM's normal bilaterally and EAC's normal Throat: Yes posterior oropharynx normal and Yes tonsils normal (no TP congestion) Neck Neck: Yes no lymphadenopathy and Yes supple Thyroid: Thyroid normal Resp Auscultation: clear to auscultation bilaterally, no rales and no wheezes Cardio Rate: regular rate Rhythm: regular rhythm Heart sounds: no murmurs GI Palpation (GI): Soft to palpation and nontender Auscultation: normal bowel sounds General: Yes no CVA tenderness Back/Spine/Pelvis Back: no CVA tenderness Cervical Spine: Cervical spine tenderness Thoracic/Lumbar Spine: thoracic spinal tenderness at T7 ((+) compression fracture) and lumbar spinal tenderness Skin Rashes: no rashes Extrem General: Yes no clubbing, cyanosis or edema Results Reviewed Results Reviewed: Laboratory Tests 01/03/24 08:09 Sodium 136 Potassium 3.3 Creatinine 1.03 Estimated GFR 53 Fasting Glucose 111 H Calcium 9.4 AST 27 ALT 21 Triglycerides 230 H Cholesterol 270 H LDL Cholesterol, Calc 174 H HDL Cholesterol 50 Coding Level of Care Code Est Pt Level 4 (41827) Diagnoses Pure hypercholesterolemia E78.00 Benign essential hypertension I10 Acquired hypothyroidism E03.9 Impaired fasting glucose R73.01 Chronic low back pain without sciatica, unspecified back pain laterality M54.50; G89.29 Back pain laterality: unspecified Sciatica presence: without sciatica Fibromyalgia M79.7 Nonintractable epilepsy without status epilepticus, unspecified epilepsy type G40.909 Epilepsy type: unspecified Intractability: not intractable Status epilepticus: without status epilepticus Obstructive sleep apnea G47.33 Macrocytosis without anemia D75.89 Vitamin D deficiency E55.9 Osteopenia, unspecified location M85.80 Osteopenia location: unspecified GERD without esophagitis K21.9 Generalized anxiety disorder F41.1 Obesity (BMI 30-39.9) E66.9 Assessment & Plan Assessment & Plan (1) Pure hypercholesterolemia: Code(s): E78.00 - Pure hypercholesterolemia, unspecified Category: Medical Plan: Results of her labs done a few days ago reviewed and discussed with patient - she is advised that her cholesterol levels have increased from previous and her total cholesterol is now at 270 mg/dl and LDL cholesterol is now at 174 mg/dl Reinforced low cholesterol diet Patient states that she had problems tolerating statins in the past and prefers to continue to avoid taking them Have advised her that there are now newer Rx (PCSK9 inhibitors like Repatha, Praluent and Leqvio) that are completely different from the statins - patient states that she will look into these and will call back if she decides to try these for her high cholesterol Will have her recheck her labs and fasting lipids in 6 months for follow up (2) Benign essential hypertension: Code(s): I10 - Essential (primary) hypertension Category: Medical Plan: Reinforced low sodium diet - goal is systolic BP of 120 to 130 mm or less Continue Lisinopril-HCT 20-12.5 mg 2 tablets QD (3) Acquired hypothyroidism: Code(s): E03.9 - Hypothyroidism, unspecified Category: Medical Plan: Her TFTs were normal when last checked in March 2023 and they were not rechecked recently Continue Levothyroxine 125 mcg QD Will recheck her TFTs in 6 months for follow up (4) Impaired fasting glucose: Code(s): R73.01 - Impaired fasting glucose Category: Medical Plan: Her fasting glucose level was again high at 111 mg/dl on her recent labs HgbA1c was at 6.0% when last checked in July 2022 Reinforced low calorie/low carb diet;exercise as tolerated Will recheck her FBS as well as her HgbA1c in 6 months for follow up (5) Chronic low back pain: Comment: (+) T7 compression fracture Code(s): M54.50 - Low back pain, unspecified; G89.29 - Other chronic pain Category: Medical Qualifiers: Back pain laterality: unspecified Sciatica presence: without sciatica Qualified Code(s): M54.50 - Low back pain, unspecified; G89.29 - Other chronic pain Plan: Follow up with pain management as scheduled or as needed She was on opioids in the past but was switched over to Suboxone, with plans to be transitioned over to [place] subsequently but patient decided not to pursue this and went back on Suboxone for a while She was eventually able to wean herself off Suboxone a couple of years ago in 2021 States that she does not wish to go back on opioids and plans to just try to continue controlling her pain through other means She has been started on Duloxetine and feels that this is helping somewhat - currently takes 60 mg daily in the winter to also help with her winter blues and goes back down to 30 mg daily in the spring/summer She also takes OTC Ibuprofen PRN for additional relief when needed (6) Fibromyalgia: Code(s): M79.7 - Fibromyalgia Category: Medical Plan: Continue Duloxetine 60 mg QD presently; she drops her dose down to 30 mg in the spring/summer She is again encouraged to stay active and to try exercising regularly as tolerated to help better control/manage her fibromyalgia symptoms (7) Epilepsy: Comment: S/P head injury in 2017 resulting in a subdural hematoma Code(s): G40.909 - Epilepsy, unspecified, not intractable, without status epilepticus Category: Medical Qualifiers: Epilepsy type: unspecified Intractability: not intractable Status epilepticus: without status epilepticus Qualified Code(s): G40.909 - Epilepsy, unspecified, not intractable, without status epilepticus Plan: Follow up with [facility] as scheduled (was seen by Dr. Harshad Alarcon in the past) Continue Levetiracetam 500 mg BID (8) Obstructive sleep apnea: Comment: uses CPAP Code(s): G47.33 - Obstructive sleep apnea (adult) (pediatric) Category: Medical Plan: Relates that she had a sleep study done many years ago (possibly > 10 yrs) and has been using a CPAP device over the years She was previoulsy referred her to Sleep Medicine for further management but was never contacted for an appointment - will redo her referral today (9) Macrocytosis without anemia: Code(s): D75.89 - Other specified diseases of blood and blood-forming organs Category: Medical Plan: Patient's B12 and Folate levels were normal when checked previously Her H/H were still normal when they were last checked in March 2023 - she is n ot anemic She has been advised that her macrocytosis may be actually due to her Levetiracetam as anticonvulsants have been known to be associated with macrocytosis Will continue to monitor this for now and consider referral to hematology for further evaluation only if this progresses (10) Vitamin D deficiency: Code(s): E55.9 - Vitamin D deficiency, unspecified Category: Medical Plan: Continue Vitamin D3 1000 units QD (11) Osteopenia: Code(s): M85.80 - Other specified disorders of bone density and structure, unspecified site Category: Medical Qualifiers: Osteopenia location: unspecified Qualified Code(s): M85.80 - Other specified disorders of bone density and structure, unspecified site Plan: Her most recent BMD done in November 2021 revealed (+) osteopenia based on the lowest T-score value of -2.4 in the femoral neck Her 10-year FRAX score is as follows: Major osteoporotic fracture (clinical spine, forearm, hip or shoulder) 19.8% and hip fracture 4.1% Have reminded her to continue with her daily Vitamin D and Calcium supplements and to exercise regularly but reinforced fall precautions Have gone over with patient briefly the numerous treatment options but advised that the most common are the bisphosphonates and weekly Alendronate is the most widely prescribed oral bisphosphonates Patient stated then that she does not wish to take any Rx for her bone density for now and will see how her BMD is again next year (2024) - she will also discuss this further with Dr. Al (her [facility]) (12) GERD without esophagitis: Code(s): K21.9 - Gastro-esophageal reflux disease without esophagitis Category: Medical Plan: Dietary restrictions reinforced Continue Omeprazole 20 mg QD (13) Generalized anxiety disorder: Code(s): F41.1 - Generalized anxiety disorder Category: Medical Plan: Continue Lorazepam 1 mg QD - she takes Lorazepam mostly Q HS to help her sleep Have considered starting patient on medications that are actually indicated for insomnia and sleep difficulties to more directly address her main/actual issue (have reminded her that Lorazepam is not really indicated for sleep) but this will mean starting her on additional medications that are classified as controlled substances - she has mentioned being prescribed Triazolam in the past - and ultimately have decided it may be in the patient's best interest to keep her pill burden low (14) Obesity (BMI 30-39.9): Code(s): E66.9 - Obesity, unspecified Category: Medical Plan: Reinforced diet/exercise as tolerated/lose weight Plan Follow up in 6 months Orders: Orders Free T4 (Free Thyroxine) 6 Months E03.9 - Hypothyroidism, unspecified Hemoglobin A1c 6 Months E11.9 - Type 2 diabetes mellitus without complications Complete Blood Count Auto Diff 6 Months D64.9 - Anemia, unspecified Vitamin D 25-OH Total 6 Months E55.9 - Vitamin D deficiency, unspecified Thyroid Stimulating Hormone 6 Months E03.9 - Hypothyroidism, unspecified Lipid Panel 6 Months E78.00 - Pure hypercholesterolemia, unspecified Comprehensive [place]. Panel Fast 6 Months E78.00 - Pure hypercholesterolemia, unspecified UA CC w/rflx Micro + Cult 6 Months R30.0 - Dysuria Referrals Sleep Medicine Referral G47.33 - Obstructive sleep apnea (adult) (pediatric)
== END 2024-01-06 17:20 | disposition home or self-care (01) ==
LOC: HO.HMCH 16:12
PROVIDERS: PCP Internal Medicine; Visit Provider Internal Medicine
DX: E78.00 Pure hypercholesterolemia, unspecified (principal); I10 Essential (primary) hypertension; E03.9 Hypothyroidism, unspecified; G40.909 Epilepsy, unspecified, not intractable, without status epilepticus; R73.01 Impaired fasting glucose; M54.50 Low back pain, unspecified; G89.29 Other chronic pain; M79.7 Fibromyalgia; G47.33 Obstructive sleep apnea (adult) (pediatric); D75.89 Other specified diseases of blood and blood-forming organs; E55.9 Vitamin D deficiency, unspecified; M85.80 Other specified disorders of bone density and structure, unspecified site

== ENCOUNTER → 2024-01-06 16:11 | Outpatient (BNVA) | payer MEDICARE, SELFPAY | PROVIDERS: PCP Internal Medicine; Visit Provider Internal Medicine | DX: E78.00 Pure hypercholesterolemia, unspecified (principal); I10 Essential (primary) hypertension; E03.9 Hypothyroidism, unspecified; R73.01 Impaired fasting glucose; M54.50 Low back pain, unspecified; G89.29 Other chronic pain; M79.7 Fibromyalgia; G40.909 Epilepsy, unspecified, not intractable, without status epilepticus; G47.33 Obstructive sleep apnea (adult) (pediatric); E55.9 Vitamin D deficiency, unspecified; M85.80 Other specified disorders of bone density and structure, unspecified site; K21.9 Gastro-esophageal reflux disease without esophagitis; F41.1 Generalized anxiety disorder; E66.9 Obesity, unspecified | CPT/HCPCS: 96127; 99212 ==

== ENCOUNTER 2024-06-22 18:04 | Emergency (ER) | payer MEDICARE, SELFPAY ==
--- NOTE | ~2024-06-22 | XR_ITS ---
CLINICAL HISTORY: dorsal swelling and tenderness, fell 3 view left foot Comparison: None Findings: Subtle lucency along the 2nd metatarsal base may represent a nondisplaced fracture. Moderate dorsal soft tissue swelling. No significant arthritic change or erosions. No ankle effusion. No radiopaque foreign body. IMPRESSION: Subtle lucency along the 2nd metatarsal base may represent a nondisplaced fracture. Moderate dorsal soft tissue swelling. A noncontrast CT can be obtained for further evaluation. This document has been electronically signed by: Mariela Stearns MD on 06/22/2024 19:18:24
[2024-06-22 18:18] VITALS: BP 168/69; PULSE 76; RESP 16; TEMP 36.8; O2SAT 96; BMI 35.9
--- NOTE | 2024-06-22 18:20 | ED.GENADULT ---
HPI - General Adult General Chief complaint: Extremity Injury, Lower Stated complaint: left foot inj Time Seen by Provider: 06/22/24 18:26 Source: patient Mode of arrival: ambulatory Limitations: no limitations History of Present Illness ED Provider: danita mcmahon np HPI narrative: Patient is a 68-year-old female who presents emergency department for evaluation. She reports earlier today she was walking down the stairs ?a bit groggy after just waking up? in she slipped on the last 2 stairs. Reports and inversion injury to the foot and she ultimately ?sat on my foot?. Has pain tenderness and swelling primarily to the lateral dorsal aspect of the foot. Denies any ankle pain or pain in the ankle with movement. Denies tingling sensation. She took ibuprofen 800 mg without relief, does admit that she took 1 of her 's oxycodone 10 mg which did help her pain Related Data Home Medications ?Medication ?Instructions ?Recorded ?Confirmed ibuprofen 200 mg capsule See Rx Instructions PO Q6H PRN Pain 04/19/21 01/06/24 multivitamin (Daily Multi-Vitamin 1 tab PO DAILY 01/22/23 01/06/24 tablet) Previous Rx's ?Medication ?Instructions ?Recorded cholecalciferol (vitamin D3) 25 25 mcg PO DAILY 90 days #90 caps 04/19/21 mcg (1,000 unit) capsule methylcellulose (laxative) 500 mg 500 mg PO DAILY #90 tabs 04/09/22 tablet (Citrucel) polyethylene glycol 3350 17 17 g PO DAILY #510 grams 04/09/22 gram/dose oral powder (Miralax) albuterol sulfate 90 mcg/actuation 2 puff inhalation Q4-6H PRN 01/09/23 aerosol inhaler shortness of breath or wheezing #8.5 grams lorazepam 0.5 mg tablet 0.5 mg PO BEDTIME PRN anxiety 30 03/11/23 days #30 tabs amoxicillin 875 mg-potassium 1 tab PO BID 5 days #10 tabs 05/19/23 clavulanate 125 mg tablet ondansetron HCl 4 mg tablet 2 - 4 mg (0.5 - 1 x 4 mg) PO Q8H 05/27/23 PRN for nausea/vomiting 30 days #90 tabs levothyroxine 125 mcg tablet 125 mcg PO DAILY 90 days #90 tabs 07/20/23 duloxetine 60 mg capsule,delayed 60 mg PO DAILY 90 days #90 caps 08/07/23 release levetiracetam 500 mg tablet 500 mg PO BID #180 tabs 02/17/24 lisinopril 20 2 tab PO DAILY 90 days #180 tabs 02/17/24 mg-hydrochlorothiazide 12.5 mg tablet metoprolol succinate 100 mg 100 mg PO DAILY 90 days #90 tabs 02/17/24 tablet,extended release 24 hr lorazepam 1 mg tablet 1 mg PO DAILY PRN anxiety 30 days 05/04/24 #30 tabs omeprazole 20 mg capsule,delayed 20 mg PO DAILY #90 caps 05/11/24 release duloxetine 30 mg capsule,delayed 30 mg PO DAILY 30 days #30 caps 06/17/24 release oxycodone 5 mg tablet 5 mg PO Q6H PRN pain #14 tabs 06/22/24 Allergies Allergy/AdvReac Type Severity Reaction Status Date / Time Sulfa (Sulfonamide Allergy Intermediate Hives Verified 06/22/24 18:20 Antibiotics) [SULFA (SULFONAMIDE ANTIBIOTICS)] Sompasl-FKB-[id number] Reductase AdvReac Intermediate myalgia; Verified 06/22/24 18:20 Inhibitor word retrieval difficulty aspirin [ASA] AdvReac Mild GI UPSET Verified 06/22/24 18:20 Review of Systems Review of Systems: Yes all other systems are reviewed and are negative PMFSH Past Medical History Attestation statement: The following information was validated with the patient. Source: old records reviewed Medical History Macrocytosis without anemia Pure hypercholesterolemia Obesity (BMI 30-39.9) GERD without esophagitis Vitamin D deficiency Epilepsy Acquired hypothyroidism Benign essential hypertension Obstructive sleep apnea Lumbar and sacral arthritis Chronic pain syndrome Substance use disorder Generalized anxiety disorder Fibromyalgia Surgical History History of esophagogastroduodenoscopy (EGD) H/O colonoscopy History of knee replacement History of cholecystectomy Family History Family History Mother No problems noted. Father No problems noted. Daughter Substance use disorder Son Substance use disorder Social History Social History Housing: House Alcohol intake: current Alcohol intake frequency: holidays/special occasions only Patient Tobacco Use Status: Former Tobacco user Smoked in Last 30 Days: No e-Cigarette/Vaping Use: Never Used Second Hand Smoke Exposure: Yes Use of substances other than those prescribed or required for medical reasons: No Advance Directives: No Advance Directives Information Provided: No service: No Current occupational status: employed Cognitive needs: No Hearing needs: No Vision needs: Yes Physical Exam ED Vital Signs: Vital Signs - 24 hr 06/22/24 18:18 Temperature 98.2 F Pulse Rate 76 Respiratory Rate 16 Blood Pressure 168/69 H Pulse Oximetry 96 Oxygen Delivery Method Room Air BMI result Body Mass Index 35.9 Appearance: Alert.?Oriented to person, place and time. No acute distress.?Normal affect. CVS: Heart sounds normal. Normal heart rate and rhythm.? Pulses normal.?? Respiratory: No respiratory distress.? Lung sounds clear to auscultation bilaterally?? Abdomen: Soft and non-tender. Normoactive bowel sounds. Skin: Skin warm and dry.? Normal skin color.? Extremities: No calf tenderness upon palpation. Diffuse dorsal swelling of the left foot with ecchymosis, Doppler signal changes DP pulse, 2+ PT pulse. CMS intact. Neuro: Moves all extremities spontaneously. Sensation intact bilaterally. CN II-XII intact. No focal neuro deficits. Ambulates with antalgic gait. Course Course Course Narrative: This is a rapid medical exam performed by Patrick Zamora NP: Additional HPI, ROS, PE not included below will be deferred to primary provider. Patient is a 68-year-old female presenting with complaint of left foot pain and swelling after slipping down the last 2 stairs at home. Took 800mg ibuprofen without relief. Took one of her 's 10mg oxycodone which improved her pain. Tenderness and swelling to dorsal foot. No bony tenderness to ankle. Plan: X-ray Medications Administered Discontinued Medications Generic Name Dose Route Start Last Admin Trade Name Freq PRN Reason Stop Dose Admin Oxycodone HCl 5 mg 06/22/24 20:54 06/22/24 20:58 Oxycodone Hcl Immed Release 5 Mg Tablet PO 06/22/24 20:55 5 mg ONCE ONE Administration Procedures Orthopedic Splinting/Casting Injury #1: Side: left Lower Extremity Injury Location: foot Lower Extremity Immobilizer: posterior splint Other Orthopedic Equipment: crutches Medical Decision Making Medical Decision Making MDM Narrative: Patient is a 68-year-old female past medical history of hypertension, hyperlipidemia, hypothyroidism, to the eye, seizures, GERD, vitamin-D deficiency, VIPUL, fibromyalgia, anxiety who presents emergency department for evaluation of traumatic left foot pain as per HPI. Left lower extremities neurovascularly intact distally. There is a great deal of ecchymosis and swelling to the dorsum of the left foot primarily along the lateral aspect with notable tenderness upon palpation. 2+ PT pulse, difficulty palpating DP pulse due to swelling however Doppler signal was present. Normal cap refill of the toes. On my interpretation may have a subtle fracture of the 2nd metatarsal Her ankle examination is benign and has full range of motion to the ankle. Managed with 's oxycodone, declines need for additional analgesia at this time. No head strike or loss of consciousness no focal neurological deficits. No indication for head CT imaging. A posterior splint, tolerated well, remained neurovascularly intact distally after application. Stable for discharge home Differential Diagnosis Differential Diagnoses: The differential diagnosis associated with the presentation includes (Fracture, dislocation, sprain, contusion) Admission/Observation Consideration of admission/observation: Escalation of care including admission/observation considered Independent Interpretation I performed an independent interpretation of an: Plain X-Ray (See narrative above) Radiology Impression Discussion of test interpretation with radiology: I have reviewed the radiologist's reading. Radiologist Impression: 3 view left foot Comparison: None Findings: Subtle lucency along the 2nd metatarsal base may represent a nondisplaced fracture. Moderate dorsal soft tissue swelling. No significant arthritic change or erosions. No ankle effusion. No radiopaque foreign body. IMPRESSION: Subtle lucency along the 2nd metatarsal base may represent a nondisplaced fracture. Moderate dorsal soft tissue swelling. A noncontrast CT can be obtained for further evaluation. Independent Historian Clinical information obtained from an independent historian. History obtained from or confirmed by: Spouse External Record Review External record reviewed: Outpatient record Prescription Management I considered prescription management with: Pain Medication Discharge Plan Discharge Clinical Impression: Metatarsal fracture Qualifiers: Encounter type: initial encounter Metatarsal bone: second Fracture type: closed Fracture alignment: nondisplaced Laterality: left Qualified Code(s): S92.325A - Nondisplaced fracture of second metatarsal bone, left foot, initial encounter for closed fracture Patient Disposition: Home, Self-Care Instructions: Crutch Instructions (ED), Foot Fracture in Adults (ED), R.I.C.E. Treatment (ED) Additional Instructions: You can take ibuprofen 200 mg, 3 tablets (600mg) every 6-8 hours as needed for pain, in addition to Tylenol 500 mg, 2 tablets (1,000mg) every 4-6 hours as needed for pain, but not to exceed 3 doses daily (3,000mg).? For pain unrelieved by either of the above I have sent a short prescription for oxycodone to your pharmacy. This is a narcotic medication. It can make you drowsy and it can be addicting. You should not drive, drink alcohol, or work while taking this medication. In addition, do not take this medication in addition to your lorazepam at night. Be sure to apply ice for 10-15 minutes 4-6 times daily Contact the orthopedic office 1st thing tomorrow morning to arrange for a follow-up visit. The splint must remain in place at all times it can not get wet. If it feels as though there is significant swelling, pressure tightness beneath the splint, you should seek re-evaluation. If you noticed discoloration to the toes numbness tingling or cold sensation you should seek re-evaluation. Prescriptions: New oxycodone 5 mg tablet 5 mg PO Q6H PRN (Reason: pain) Qty: 14 0RF Rx Instructions: Partial Fill upon patient request. No Action lorazepam 0.5 mg tablet 0.5 mg PO BEDTIME PRN (Reason: anxiety) 30 Days Qty: 30 0RF ondansetron HCl 4 mg tablet 2 - 4 mg PO Q8H PRN (Reason: for nausea/vomiting) 30 Days Qty: 90 1RF levothyroxine 125 mcg tablet 125 mcg PO DAILY 90 Days Qty: 90 3RF duloxetine 60 mg capsule,delayed release(DR/EC) 60 mg PO DAILY 90 Days Qty: 90 1RF Rx Instructions: To take during winter levetiracetam 500 mg tablet 500 mg PO BID Qty: 180 3RF metoprolol succinate 100 mg tablet extended release 24 hr 100 mg PO DAILY 90 Days Qty: 90 3RF lisinopril-hydrochlorothiazide 20-12.5 mg tablet 2 tab PO DAILY 90 Days Qty: 180 3RF lorazepam 1 mg tablet 1 mg PO DAILY PRN (Reason: anxiety) 30 Days Qty: 30 0RF omeprazole 20 mg capsule,delayed release(DR/EC) 20 mg PO DAILY Qty: 90 1RF duloxetine 30 mg capsule,delayed release(DR/EC) 30 mg PO DAILY 30 Days Qty: 30 1RF albuterol sulfate 90 mcg/actuation HFA aerosol inhaler 2 puff inhalation Q4-6H PRN (Reason: shortness of breath or wheezing) Qty: 8.5 0RF amoxicillin-pot clavulanate 875-125 mg tablet 1 tab PO BID 5 Days Qty: 10 0RF multivitamin [Daily Multi-Vitamin] Tablet 1 tab PO DAILY ibuprofen 200 mg capsule See Rx Instructions PO Q6H PRN (Reason: Pain) Rx Instructions: 1 to 3 capsules PO every 6 hours PRN; cholecalciferol (vitamin D3) 25 mcg (1,000 unit) capsule 25 mcg PO DAILY 90 Days Qty: 90 3RF polyethylene glycol 3350 [Miralax] 17 gram/dose powder 17 g PO DAILY Qty: 510 2RF Citrucel 500 mg tablet 500 mg PO DAILY Qty: 90 2RF Rx Instructions: take it with full glass of water Referrals: Davie Monroe MD [Primary Care Provider] - Viral Padgett MD [Physician] - Print Language: Cook Islander
--- NOTE | 2024-06-22 19:29 | PC.NURSE ---
This RN assumed pt care @ 1900. Pt a&ox4, no signs of distress Pts family at bedside Plan of care ongoing.
--- NOTE | 2024-06-22 19:43 | PC.NURSE ---
Pt requested and hob lowered Plan of care ongoing.
[2024-06-22] MEDS: oxyCODONE HCl Immed Release 5 MG TABLET PO (20:58)
--- NOTE | 2024-06-22 21:00 | PC.NURSE ---
Pt reporting 9/10 ankle pain Pt medicated per may Plan of care ongoing.
[2024-06-22 21:30] VITALS: BP 191/86; PULSE 85; RESP 16; TEMP 37; O2SAT 98
[2024-06-22 21:31] VITALS: BP 191/86; PULSE 85; RESP 16; TEMP 37; O2SAT 98
== END 2024-06-22 21:33 | disposition home or self-care (01) ==
PROVIDERS: Emergency Provider Emergency Medicine Emergency Medical Services; PCP Internal Medicine
DX: S92.325A Nondisplaced fracture of second metatarsal bone, left foot, initial encounter for closed fracture (principal); M79.672 Pain in left foot; W10.9XXA Fall (on) (from) unspecified stairs and steps, initial encounter; Y93.9 Activity, unspecified; Y92.9 Unspecified place or not applicable; Y99.8 Other external cause status
CPT/HCPCS: 29515; 73630; 99283; 99284

== ENCOUNTER → 2024-06-22 18:21 | Outpatient (BNV) | payer MEDICARE, SELFPAY | PROVIDERS: Emergency Provider Emergency Medicine Emergency Medical Services; PCP Internal Medicine; Visit Provider Student in an Organized Health Care Education/Training Program | DX: R22.42 Localized swelling, mass and lump, left lower limb (principal) | CPT/HCPCS: 73630 ==

== ENCOUNTER 2024-06-30 13:04 | Outpatient (AMB) | payer MEDICARE, SELFPAY ==
--- NOTE | 2024-06-30 13:09 | A.OFFVIS_ITS ---
Intake Visit Reasons: FC- FC 2nd metatarsal bone, LT foot -DOI 06/22/24 Intake Note: Fatoumata is a 68 year old female who presents today for an ER follow up of 2nd MT fracture, DOI 06/22/24. Patient was [place] [facility] [place] to a slip and fall on the last 2 stairs. Her foot had inverted and her body landed on her foot. X-rays were taken and she was placed in a splint. Patient reports she is still having pain on the top of her foot. Denies numbness and tingling. Allergies Sulfa (Sulfonamide Antibiotics) [SULFA (SULFONAMIDE ANTIBIOTICS)] Allergy (Intermediate, Verified 06/30/24 13:10) Hives Zrzcomj-[id number] Reductase Inhibitor Adverse Reaction (Intermediate, Verified 06/30/24 13:10) myalgia; word retrieval difficulty aspirin [ASA] Adverse Reaction (Mild, Verified 06/30/24 13:10) GI UPSET HPI HPI FC- FC 2nd metatarsal bone, LT foot -DOI 06/22/24: Details: Ms. Zavala a 68-year-old female who presents to the office today accompanied by her for evaluation of left foot fracture that she sustained on 06/22/2024. The patient reports that she was walking down the stairs inverted her foot and landed directly onto her left foot with her body weight. She presented to the emergency department where x-rays were obtained and she was found to have multiple fractures in the left foot. She was placed into a splint, instructed to non weightbear and follow up with orthopedics outpatient for further evaluation and treatment. In the office today the patient presents with a boot that she purchased OTC. [facility] Medical History Macrocytosis without anemia Pure hypercholesterolemia Obesity (BMI 30-39.9) GERD without esophagitis Vitamin D deficiency Epilepsy Acquired hypothyroidism Benign essential hypertension Obstructive sleep apnea Lumbar and sacral arthritis Chronic pain syndrome Substance use disorder Generalized anxiety disorder Fibromyalgia Surgical History History of esophagogastroduodenoscopy (EGD) H/O colonoscopy History of knee replacement History of cholecystectomy Family History Mother No problems noted. Father No problems noted. Daughter Substance use disorder Son Substance use disorder Social History (Updated 06/30/24 @ 13:13 by Miguel Sorto) Housing: House Alcohol intake: current Alcohol intake frequency: holidays/special occasions only Patient Tobacco Use Status: Former Tobacco user e-Cigarette/Vaping Use: Never Used Second Hand Smoke Exposure: Yes service: No Current occupational status: employed Current occupation: Nurse [employer] Cognitive needs: No Hearing needs: No Vision needs: Yes Review of Systems Const All systems reviewed & are unremarkable except as noted in HPI and below Physical Exam Extrem Other: Left foot: Moderate to severe dorsal sided edema with scattered resolving ecchymosis. Patient does have 2 small areas on the dorsal aspect of the foot at the base of the toes were fracture blisters have developed. The 1st 1 being roughly 3 cm x 1 cm across the 2nd and 3rd metatarsal heads. And a small superficial over the shaft of the 1st metatarsal. There is no evidence of open fracture. There is no surrounding erythema or drainage. No signs of infection. Patient is able to demonstrate dorsiflexion, plantar flexion, pronation and supination but is limited due to pain.. Sensation intact. Pedal Pulse intact. Capillary refill is brisk. Office Procedures AMB Fracture Care Fracture Billing Code: Fracture Billing Code Assessment & Plan Assessment & Plan (1) Fracture of second metatarsal bone: Code(s): S92.323A - Displaced fracture of second metatarsal bone, unspecified foot, initial encounter for closed fracture Category: Medical (2) Fracture of first metatarsal bone of left foot: Code(s): S92.312A - Displaced fracture of first metatarsal bone, left foot, initial encounter for closed fracture Category: Medical (3) Fracture of third metatarsal bone of left foot: Code(s): S92.332A - Displaced fracture of third metatarsal bone, left foot, initial encounter for closed fracture Category: Medical Plan Ms. Zavala a 68-year-old female who presents to the office today accompanied by her for evaluation of left foot fracture that she sustained on 06/22/2024. The patient reports that she was walking down the stairs inverted her foot and landed directly onto her left foot with her body weight. She presented to the emergency department where x-rays were obtained and she was found to have multiple fractures in the left foot. She was placed into a splint, instructed to non weightbear and follow up with orthopedics outpatient for further evaluation and treatment. In the office today the patient presents with a boot that she purchased OTC. While in the office today, the fracture blisters were dressed with Xeroform and a nonstick gauze dressing followed by an Martin wrap. She was assisted into the walking boot that she purchased [id number]. She can weightbear as tolerated in the walking boot. She was educated on the importance of elevation above heart level on 3 pillows while lying down to assist with edema management. Ice and gentle compression was also recommended. There is no infection at this time where the fracture blisters are located. She should change her dressings daily. Wash with soap and water and no soaking. If she develops any of the following including but not limited to redness swelling drainage warmth she should report to the emergency department or contact our office immediately. She will follow up in 4 weeks with repeat x-rays, sooner if needed. X-rays of the left foot which were obtained while in the office today and were reviewed by me, Jayla Kramer PA-C, revealed 2nd metatarsal base fracture as well as likely 1st metatarsal base fracture and accompanied by 3rd metatarsal ba se fracture. Coding Level of Care Code New Pt Level 4 (46260) Diagnoses Fracture of second metatarsal bone S92.323A Fracture of first metatarsal bone of left foot S92.312A Fracture of third metatarsal bone of left foot S92.332A CPT Codes Fracture Care - Fracture Billing Code: Fracture Billing Code ([id number])
== END 2024-06-30 13:53 | disposition home or self-care (01) ==
LOC: HO.HOS 13:05
PROVIDERS: PCP Internal Medicine; Visit Provider Physician Assistant
DX: S92.323A Displaced fracture of second metatarsal bone, unspecified foot, initial encounter for closed fracture (principal); S92.312A Displaced fracture of first metatarsal bone, left foot, initial encounter for closed fracture; S92.332A Displaced fracture of third metatarsal bone, left foot, initial encounter for closed fracture
CPT/HCPCS: 99203

== ENCOUNTER → 2024-06-30 13:04 | Outpatient (BNVA) | payer MEDICARE, SELFPAY | PROVIDERS: PCP Internal Medicine; Visit Provider Physician Assistant | DX: S92.322D Displaced fracture of second metatarsal bone, left foot, subsequent encounter for fracture with routine healing (principal); S92.312D Displaced fracture of first metatarsal bone, left foot, subsequent encounter for fracture with routine healing; S92.332D Displaced fracture of third metatarsal bone, left foot, subsequent encounter for fracture with routine healing; W10.9XXD Fall (on) (from) unspecified stairs and steps, subsequent encounter | CPT/HCPCS: 99202 ==

== ENCOUNTER 2024-07-06 13:37 | Outpatient (REF) | payer MEDICARE, SELFPAY ==
[2024-07-06 13:52] LABS: MANUAL DIFF FLAG NO
[2024-07-06 14:37] LABS: Appearance Urine Clear; Color Urine Dark Yellow; Glucose Urine UA Negative (Negative); Leukocyte Esterase Urine Small (1+) (Negative); Nitrite Urine Negative (Negative); PH 6.5 (5.0-9.0); UMIC TRIGGER UACC YES; Urine Blood Negative (Negative); Urine Ketones Trace mg/dL (Negative); Urine Protein Negative (Neg-Trace)
[2024-07-06 14:38] LABS: Basophils Absolute Auto 0.1 X10*3/uL (0.0-0.2); Basophils Percent Auto 1.8 % (0-2); Eosinophils Absolute Auto 0.3 X10*3/uL (0.0-0.4); Eosinophils Percent Auto 4.5 % (0-4); Hematocrit 37.2 % (37.0-47.0); Hemoglobin 12.7 g/dl (12.0-16.0); Imm Gran Abs Auto 0.02 X10*3/uL (0.00-0.03); Imm Gran Pct Auto 0.4 % (0.0-0.4); Lymphocytes Absolute Auto 1.8 X10*3/uL (1.2-4.9); Lymphocytes Percent Auto 31.3 % (20-40); Mean Corpuscular HGB Conc 34.1 g/dl (31.0-35.0); Mean Corpuscular Hemoglobin 32.5 pg (27.0-33.0); Mean Corpuscular Volume 95.1 fL (80.0-98.0); Monocytes Absolute Auto 0.6 X10*3/uL (0.1-1.2); Monocytes Percent Auto 11.1 % (2-11); Neutrophils Absolute Auto 2.9 x10*3/uL (2.0-8.3); Neutrophils Percent Auto 50.9 % (45-73); Platelet Count 217 X10*3/uL (160-400); Red Blood Count 3.91 X10*6/uL (4.20-5.50); Red Cell Distribution Width 11.9 % (11.0-16.0); White Blood Count 5.6 X10*3/uL (4.8-10.8)
[2024-07-06 14:58] LABS: Bacteria Urine None Seen (None Seen); Hyaline Casts Urine 0-2 /LPF (0-2); RBC Urine 0-2 /HPF (0-2); UACC Culture Trigger YES; WBC Urine 0-5 /HPF (0-5)
[2024-07-06 15:01] LABS: Alanine Aminotransferase 20 U/L (0-31); Albumin Level 4.2 g/dL (3.5-5.0); Alkaline Phosphatase 86 U/L (39-117); Anion Gap 13 (12-20); Aspartate Amino Transferase 23 U/L (5-31); Bilirubin Total 0.5 mg/dL (0.0-1.0); Blood Urea Nitrogen 14 mg/dL (9-16); Calcium 9.5 mg/dL (8.4-10.2); Carbon Dioxide 30 mmol/L (22-29); Chloride 97 mmol/L (96-108); Cholesterol 263 mg/dL (<200); Estimated Average Glucose 126 mg/dL; Estimated Glomerular Filt Rate 60; Glucose Fasting 111 mg/dL (60-99); Potassium 3.3 mmol/L (3.3-5.1); Sodium 137 mmol/L (135-145); Total Hemoglobin (HGBA1C) 3326.6735 umol/L; Triglycerides 281 mg/dL (<150)
[2024-07-06 15:31] LABS: Free T4 (Free Thyroxine) 1.34 ng/dL (0.71-1.85); HDL Cholesterol 41 mg/dL (>40); LDL Cholesterol Calculated 166 mg/dL (<100); Thyroid Stimulating Hormone 0.31 uIU/mL (0.32-4.0); Vitamin D 25-OH Total 57.6 ng/mL (>30)
[2024-07-08 21:27] LABS: Levetiracetam Keppra 29.9 mcg/mL (6.0-46.0)
== END 2024-07-06 13:38 | disposition home or self-care (01) ==
LOC: HO.LAB 13:37
PROVIDERS: PCP Internal Medicine; Visit Provider Internal Medicine
DX: E78.00 Pure hypercholesterolemia, unspecified (principal); I10 Essential (primary) hypertension; E03.9 Hypothyroidism, unspecified; M54.50 Low back pain, unspecified; G89.29 Other chronic pain; M79.7 Fibromyalgia; G25.81 Restless legs syndrome; G40.909 Epilepsy, unspecified, not intractable, without status epilepticus; G47.33 Obstructive sleep apnea (adult) (pediatric); D75.89 Other specified diseases of blood and blood-forming organs; E55.9 Vitamin D deficiency, unspecified; M85.80 Other specified disorders of bone density and structure, unspecified site; S92.902S Unspecified fracture of left foot, sequela; K21.9 Gastro-esophageal reflux disease without esophagitis; F41.1 Generalized anxiety disorder; E66.9 Obesity, unspecified; E11.9 Type 2 diabetes mellitus without complications; Z79.899 Other long term (current) drug therapy
CPT/HCPCS: 36415; 80053; 80061; 80177; 81001; 82306; 83036; 84439; 84443; 85025; 87086; 96127; 99212

== ENCOUNTER 2024-07-06 16:14 | Outpatient (AMB) | payer MEDICARE, SELFPAY ==
[2024-07-06 16:42] VITALS: BP 124/82; PULSE 55; O2SAT 96
--- NOTE | 2024-07-06 16:42 | A.OFFPC_ITS ---
Vital Signs 07/06/24 16:42 Height 5 ft BMI Reason not done Patient refused/unable BP 124/82 Blood Pressure Location Lt brachial Position Sitting Pulse 55 Pulse Source Pulse Oximeter Pulse Oximetry (%) 96 Oxygen Delivery Method Room Air Intake Visit Reasons: 6 MO FOLLOW UP Shake Sawyer Required: No Accompanied by: Self / Same As Patient Allergies Sulfa (Sulfonamide Antibiotics) [SULFA (SULFONAMIDE ANTIBIOTICS)] Allergy (Intermediate, Verified 07/06/24 17:16) Hives [id number] Reductase Inhibitor Adverse Reaction (Intermediate, Verified 07/06/24 17:16) myalgia; word retrieval difficulty aspirin [ASA] Adverse Reaction (Mild, Verified 07/06/24 17:16) GI UPSET Medication List - Last Reconciled 07/06/24 by Davie Monroe MD albuterol sulfate 90 mcg/actuation 2 puffs inhalation Q4-6H PRN celecoxib 200 mg PO BID cholecalciferol (vitamin D3) 25 mcg PO DAILY 90 days duloxetine 60 mg PO DAILY 90 days duloxetine 30 mg PO DAILY 30 days ibuprofen 1 to 3 capsules PO every 6 hours PRN; levetiracetam 500 mg PO BID levothyroxine 125 mcg PO DAILY 90 days lisinopril-hydrochlorothiazide 20-12.5 mg 2 tabs PO DAILY 90 days lorazepam 0.5 mg PO BEDTIME PRN 30 days lorazepam 1 mg PO DAILY PRN 30 days methylcellulose (laxative) (Citrucel) 500 mg PO DAILY metoprolol succinate ER 100 mg PO DAILY 90 days multivitamin (Daily Multi-Vitamin tablet) 1 tab PO DAILY omeprazole 20 mg PO DAILY ondansetron HCl 2 - 4 mg (0.5 - 1 x 4 mg) PO Q8H PRN 30 days oxycodone 5 mg PO Q6H PRN polyethylene glycol 3350 (Miralax) 17 grams PO DAILY Tobacco use date assessed: 07/06/24 Fall risk assessment: 2 + Falls in past year Last assessed Fall Risk: 07/06/24 Dental Screening Dental Screen Date: 07/06/24 Did you have a dental visit in the last 12 months?: Yes Did you have a dental problem in the last 6 months where you did not have access to dental care?: No Was dental information given to patient?: Patient has dentist HPI 6 MO FOLLOW UP HPI Details Patient comes in today for her follow up visit States that she has been experiencing symptoms of restless legs at night for about a year now Would like to see is anything that she can take to help with symptoms so she can get some sleep at night She also recently suffered a left foot fracture about 2 weeks ago when she was walking down the stairs and missed a step She ended up twisting/inverting her foot and landed directly onto her left foot She was brought to the emergency room after her fall and x-rays revealed (+) fractures in her foot She was placed in a foot splint and was then instructed to follow up with orthopedics EVELIN She was seen by orthopedics and repeat x-rays confirmed the fracture(s) Patient has since been wearing a boot that she reportedly purchased on her own and was instructed to keep the boot on at all times, especially if she will be bearing weight on her foot and is instructed to do this on an as-needed basis She will be seen again by Orthopedics for follow-up in a month States that she feels okay otherwise She denies any headaches or dizziness Denies any chest pains, no shortness of breast No nausea/vomiting, no abdominal pain No change in bowel habits noted She had her follow-up labs done earlier today - to discuss her results [facility] Medical History Macrocytosis without anemia Pure hypercholesterolemia Obesity (BMI 30-39.9) GERD without esophagitis Vitamin D deficiency Epilepsy Acquired hypothyroidism Benign essential hypertension Obstructive sleep apnea Lumbar and sacral arthritis Chronic pain syndrome Substance use disorder Generalized anxiety disorder Fibromyalgia Surgical History History of esophagogastroduodenoscopy (EGD) H/O colonoscopy History of knee replacement History of cholecystectomy Family History Mother No problems noted. Father No problems noted. Daughter Substance use disorder Son Substance use disorder Social History Housing: House Alcohol intake: current Alcohol intake frequency: holidays/special occasions only Patient Tobacco Use Status: Former Tobacco user e-Cigarette/Vaping Use: Never Used Second Hand Smoke Exposure: Yes service: No Current occupational status: employed Current occupation: Nurse [employer] Cognitive needs: No Hearing needs: No Vision needs: Yes Questionnaire PHQ-9 Over the last 2 weeks, how often have you been bothered by any of the following problems? 1. Little interest or pleasure in doing things: not at all 2. Feeling down, depressed, or hopeless: not at all 3. Trouble falling or staying asleep, or sleeping too much: not at all 4. Feeling tired or having little energy: not at all 5. Poor appetite or overeating: not at all 6. Feeling bad about yourself - or that you are a failure or have let yourself or your family down: not at all 7. Trouble concentrating on things, such as reading the newspaper or watching television: not at all 8. Moving or speaking so slowly that other people could have noticed. Or the opposite - being so fidgety or restless that you have been moving around a lot more than usual: not at all 9. Thoughts that you would be better off or of hurting yourself in some way: not at all Total score: 0 Depression Screening Interpretation: Negative Depression Screening Done: Yes 15619 - PHQ-9 Billing: Yes Source: Developed by Drs. Jaswinder Ferrara, Ling Wall, Kushal De La Cruz and colleagues, with an educational jesus from [employer]. Thrive Questionnaire Date Thrive assessed: 07/06/24 I am a: Patient What is your living situation today?: I have a steady place to live Within the past 12 months, did the food you bought not last and you didn't have the money to get more?: Never true Within the past 12 months, did you worry whether your food would run out before you got money to buy more?: Never true Do you have trouble paying for medicines?: No Do you have trouble getting transportation to medical appointments?: No Do you have trouble paying your heating and electricity bill?: No Do you have trouble taking care of your child, family member or friend?: No Do you have trouble with day-to-day activities such as bathing, preparing meals, shopping, managing finances, etc.?: No Are you currently unemployed and looking for a job?: No Are you interested in more education?: No Please select the resources that you would like help with: None Currently or been in a relationship where the following occur: No concerns reported THRIVE Score: 0 AUDIT C Alcohol Use Questionnaire (AUDIT-C) 1. How often do you have a drink containing alcohol?: Monthly or less 2. How many drinks containing alcohol do you have on a typical day when you are drinking?: 1 or 2 3. How often do you have six or more drinks on one occasion?: Never Total Score: 1 Score Reviewed/Action Taken: Yes JANELLE-7 AMB Questionnaire JANELLE-7 Date JANELLE - 7 assessed: 07/06/24 Feeling nervous, anxious, or on edge: 0 = Not at all Not being able to stop or control worryin = Not at all Worrying too much about different things: 0 = Not at all Trouble relaxin = Not at all Being so restless that it is hard to sit still: 0 = Not at all Becoming easily annoyed or irritable: 0 = Not at all Feeling afraid as if something awful might happen: 0 = Not at all Total JANELLE-7 score (0-4 normal; 5-9 mild; 10-14 moderate; 15-21 severe): 0 Source: Developed by Drs. Jaswinder Ferrara, Ling Wall, Kushal De La Cruz and colleagues, with an educational jesus from [employer]. Review of Systems Const Denies chills, Reports difficulty sleeping, Denies fatigue, Denies fever(s) and Denies headache(s) ENT Denies dysphagia, Denies dizziness, Denies otalgia, Denies headache(s), Reports neck pain, Denies odynophagia and Denies sore throat Card Denies chest pain, Denies palpitations and Denies dyspnea Resp Denies chest congestion, Denies cough and Denies dyspnea GI Denies abdominal pain, Reports constipation (at times), Denies dysphagia, Denies heartburn, Denies diarrhea, Denies nausea, Denies odynophagia and Denies vomiting Denies difficulty voiding, Denies nocturia, Denies dysuria and Denies urinary urgency Musc Reports back pain, Reports arthralgias (left foot pain - S/P Fx) and Reports neck pain Skin/Breast Denies rash Neuro Denies dizziness, Denies headache(s) and Reports restless legs Psych Reports anxiety and Denies depression Endo Denies fatigue and Denies palpitations Physical exam (Primary Care) Vital Signs: Last Vital Signs Pulse 55 07/06/24 16:42 BP 124/82 07/06/24 16:42 Pulse Ox 96 07/06/24 16:42 Oxygen Delivery Method Room Air 07/06/24 16:42 Tobacco/Smoking Status: Tobacco use Status Tobacco use date assessed 07/06/24 07/06/24 16:48 Patient Tobacco Use Status Former Tobacco user 07/06/24 16:48 e-Cigarette/Vaping Use Never Used 07/06/24 16:48 PHQ-9: PHQ-9 Score PHQ-9: Total score 0 07/06/24 17:23 Depression Screening Interpretation: Negative Thrive Assessment: Date of Thrive Assessment Date Thrive assessed 07/06/24 07/06/24 16:48 Currently or been in a relationship where the following occur: No concerns reported Const General: no acute distress and alert HENMT Ears: TM's normal bilaterally and EAC's normal Throat: Yes posterior oropharynx normal and Yes tonsils normal (no TP congestion) Neck Neck: Yes supple and No lymphadenopathy Thyroid: Thyroid normal Resp Auscultation: clear to auscultation bilaterally, no rales and no wheezes Cardio Rate: regular rate Rhythm: regular rhythm Heart sounds: no murmurs GI Palpation (GI): Soft to palpation and nontender Auscultation: normal bowel sounds General: Yes no CVA tenderness Back/Spine/Pelvis Back: no CVA tenderness Cervical Spine: Cervical spine tenderness Thoracic/Lumbar Spine: thoracic spinal tenderness at T7 ((+) compression fracture) and lumbar spinal tenderness Skin Rashes: no rashes Extrem Other: left foot is currently in a walking boot General: Yes no clubbing, cyanosis or edema Results Reviewed Results Reviewed: Laboratory Tests 01/03/24 07/06/24 07/06/24 08:09 13:48 13:50 WBC 5.6 Hgb 12.7 Hct 37.2 Plt Count 217 Sodium 136 137 Potassium 3.3 Creatinine 0.93 Estimated GFR 60 Fasting Glucose 111 H Hemoglobin A1c % 6.0 Calcium 9.5 AST 23 ALT 20 Triglycerides 230 H 281 H Cholesterol 270 H 263 H LDL Cholesterol, Calc 174 H 166 H HDL Cholesterol 50 41 25-OH Vitamin D Total 57.6 TSH 0.31 L Free T4 1.34 Ur Specific [place] 1.020 Urine Protein Negative Urine Glucose (UA) Negative Urine Blood Negative Urine Nitrite Negative Ur Leukocyte Esterase Small (1+) H Coding Level of Care Code Est Pt Level 4 (59901) Diagnoses Pure hypercholesterolemia E78.00 Benign essential hypertension I10 Acquired hypothyroidism E03.9 Impaired fasting glucose R73.01 Chronic low back pain without sciatica, unspecified back pain laterality M54.50; G89.29 Back pain laterality: unspecified Sciatica presence: without sciatica Fibromyalgia M79.7 Restless legs syndrome G25.81 Nonintractable epilepsy without status epilepticus, unspecified epilepsy type G40.909 Epilepsy type: unspecified Intractability: not intractable Status epilepticus: without status epilepticus Obstructive sleep apnea G47.33 Macrocytosis without anemia D75.89 Vitamin D deficiency E55.9 Osteopenia, unspecified location M85.80 Osteopenia location: unspecified Closed fracture of left foot, sequela S92.902S Encounter type: sequela Fracture type: closed GERD without esophagitis K21.9 Generalized anxiety disorder F41.1 Obesity (BMI 30-39.9) E66.9 Additional Codes PHQ-9 - 66235 - PHQ-9 Billing: Yes ([id number]) Assessment & Plan Assessment & Plan (1) Pure hypercholesterolemia: Code(s): E78.00 - Pure hypercholesterolemia, unspecified Category: Medical Plan: Results of her labs done earlier today reviewed and discussed with patient - she is advised that her cholesterol levels have improved only minimally from previous and are still high - her total cholesterol is now at 263 mg/dl and LDL cholesterol is now at 166 mg/dl Reinforced low cholesterol diet Patient states that she had problems tolerating statins in the past and would like to continue avoiding them Have advised her that there are now newer Rx (PCSK9 inhibitors like Repatha, Praluent and Leqvio) that are completely different from the statins - patient states that she will look into these and will call back if she decides to try these for her high cholesterol Will have her recheck her labs and fasting lipids in 6 months for follow up (2) Benign essential hypertension: Code(s): I10 - Essential (primary) hypertension Category: Medical Plan: Reinforced low sodium diet - goal is systolic BP of 120 to 130 mm or less Continue Lisinopril-HCT 20-12.5 mg 2 tablets QD (3) Acquired hypothyroidism: Code(s): E03.9 - Hypothyroidism, unspecified Category: Medical Plan: Her free T4 level was normal on her recent labs Continue Levothyroxine 125 mcg QD Will recheck her TFTs in 6 months for follow up (4) Impaired fasting glucose: Code(s): R73.01 - Impaired fasting glucose Category: Medical Plan: Her fasting glucose level was again high at 111 mg/dl on her recent labs; HgbA1c remains unchanged at 6.0% Her HgbA1c was also at 6.0% back in July 2022 Reinforced low calorie/low carb diet;exercise as tolerated Will recheck her FBS as well as her HgbA1c in 6 months for follow up (5) Chronic low back pain: Comment: (+) T7 compression fracture Code(s): M54.50 - Low back pain, unspecified; G89.29 - Other chronic pain Category: Medical Qualifiers: Back pain laterality: unspecified Sciatica presence: without sciatica Qualified Code(s): M54.50 - Low back pain, unspecified; G89.29 - Other chronic pain Plan: Follow up with pain management as scheduled or as needed She was on opioids in the past but was switched over to Suboxone, with plans to be transitioned over to [place] subsequently but patient decided not to pursue this and went back on Suboxone for a while She was eventually able to wean herself off Suboxone a couple of years ago in 2021 States that she does not wish to go back on opioids and plans to just try to continue controlling her pain through other means She has been started on Duloxetine and feels that this is helping somewhat - currently takes 60 mg daily in the winter to also help with her winter blues and goes back down to 30 mg daily in the spring/summer She also takes OTC Ibuprofen PRN for additional relief when needed (6) Fibromyalgia: Code(s): M79.7 - Fibromyalgia Category: Medical Plan: Continue Duloxetine 60 mg QD presently; she drops her dose down to 30 mg in the spring/summer She is again encouraged to stay active and to try exercising regularly as tolerated to help better control/manage her fibromyalgia symptoms but this is on hold at this time because of her left foot injury/fracture (7) Restless legs syndrome: Code(s): G25.81 - Restless legs syndrome Category: Medical Plan: Will start patient on a trial of Ropinirole 0.25 mg Q HS (8) Epilepsy: Comment: S/P head injury in 2017 resulting in a subdural hematoma Code(s): G40.909 - Epilepsy, unspecified, not intractable, without status epilepticus Category: Medical Qualifiers: Epilepsy type: unspecified Intractability: not intractable Status epilepticus: without status epilepticus Qualified Code(s): G40.909 - Epilepsy, unspecified, not intractable, without status epilepticus Plan: Follow up with [facility] as scheduled (was seen by Dr. Harshad Alarcon in the past) Continue Levetiracetam 500 mg BID (9) Obstructive sleep apnea: Comment: uses CPAP Code(s): G47.33 - Obstructive sleep apnea (adult) (pediatric) Category: Medical Plan: Relates that she had a sleep study done many years ago (possibly > 10 yrs) and has been using a CPAP device over the years Follow up with Sleep Medicine as scheduled (10) Macrocytosis without anemia: Code(s): D75.89 - Other specified diseases of blood and blood-forming organs Category: Medical Plan: Patient's B12 and Folate levels were normal when checked previously H/H was normal on her labs done today Her H/H were also normal when they were previously checked in March 2023 (she is not anemic) She has been advised that her macrocytosis may be actually due to her Levetiracetam as anticonvulsants have been known to be associated with macrocytosis Will continue to monitor this for now and consider referral to hematology for further evaluation only if this progresses (11) Vitamin D deficiency: Code(s): E55.9 - Vitamin D deficiency, unspecified Category: Medical Plan: Continue Vitamin D3 1000 units QD (12) Osteopenia: Code(s): M85.80 - Other specified disorders of bone density and structure, unspecified site Category: Medical Qualifiers: Osteopenia location: unspecified Qualified Code(s): M85.80 - Other sp ecified disorders of bone density and structure, unspecified site Plan: Her most recent BMD done in November 2021 revealed (+) osteopenia based on the lowest T-score value of -2.4 in the femoral neck Her 10-year FRAX score is as follows: Major osteoporotic fracture (clinical spine, forearm, hip or shoulder) 19.8% and hip fracture 4.1% Have reminded her to continue with her daily Vitamin D and Calcium supplements and to exercise regularly but reinforced fall precautions Have gone over with patient briefly the numerous treatment options but advised that the most common are the bisphosphonates and weekly Alendronate is the most widely prescribed oral bisphosphonates Patient stated then that she does not wish to take any Rx for her bone density for now and will see how her BMD is again this year - she will also discuss this further with Dr. Al (her OB-[employer] Teacher) (13) Fracture of left foot: Code(s): S92.902A - Unspecified fracture of left foot, initial encounter for closed fracture Category: Medical Qualifiers: Encounter type: sequela Fracture type: closed Qualified Code(s): S92.902S - Unspecified fracture of left foot, sequela Plan: Patient suffered multiple fractures of the left foot involving the 1st, 2nd and 3rd metatarsals, when she missed a step while going down stairs and landed on her left foot a couple of weeks ago She has been advised that she does not require surgery and is currently wearing a walking boot on her left foot Follow-up with orthopedics as scheduled (14) GERD without esophagitis: Code(s): K21.9 - Gastro-esophageal reflux disease without esophagitis Category: Medical Plan: Dietary restrictions reinforced Continue Omeprazole 20 mg QD (15) Generalized anxiety disorder: Code(s): F41.1 - Generalized anxiety disorder Category: Medical Plan: Continue Lorazepam 1 mg QD - she takes Lorazepam mostly Q HS to help her sleep Have considered starting patient on medications that are actually indicated for insomnia and sleep difficulties to more directly address her main/actual issue (have reminded her that Lorazepam is not really indicated for sleep) but this will mean starting her on additional medications that are classified as controlled substances - she has mentioned being prescribed Triazolam in the past - and ultimately have decided it may be in the patient's best interest to keep her pill burden low (16) Obesity (BMI 30-39.9): Code(s): E66.9 - Obesity, unspecified Category: Medical Plan: Reinforced diet/exercise as tolerated/lose weight Plan Follow up in 6 months Orders: Orders Thyroid Stimulating Hormone 6 Months E03.9 - Hypothyroidism, unspecified Complete Blood Count Auto Diff 6 Months D64.9 - Anemia, unspecified Vitamin D 25-OH Total 6 Months E55.9 - Vitamin D deficiency, unspecified Comprehensive [place]. Panel Fast 6 Months E78.00 - Pure hypercholesterolemia, unspecified Lipid Panel 6 Months E78.00 - Pure hypercholesterolemia, unspecified Free T4 (Free Thyroxine) 6 Months E03.9 - Hypothyroidism, unspecified UA CC w/rflx Micro + Cult 6 Months R30.0 - Dysuria Medications: New ropinirole administer 1-3 hours before bedtime 0.25 mg PO BEDTIME 30 tabs 3RF 30 days
== END 2024-07-06 18:04 | disposition home or self-care (01) ==
LOC: HO.HMCH 16:15
PROVIDERS: PCP Internal Medicine; Visit Provider Internal Medicine
DX: E78.00 Pure hypercholesterolemia, unspecified (principal); G40.909 Epilepsy, unspecified, not intractable, without status epilepticus; I10 Essential (primary) hypertension; E03.9 Hypothyroidism, unspecified; R73.01 Impaired fasting glucose; M54.50 Low back pain, unspecified; G89.29 Other chronic pain; M79.7 Fibromyalgia; G25.81 Restless legs syndrome; G47.33 Obstructive sleep apnea (adult) (pediatric); D75.89 Other specified diseases of blood and blood-forming organs; E55.9 Vitamin D deficiency, unspecified

== ENCOUNTER 2024-07-31 08:35 | Outpatient (REF) | payer MEDICARE, SELFPAY ==
--- NOTE | ~2024-07-31 | XR_ITS ---
EXAMINATION: XR FOOT 3 OR MORE VIEWS LEFT HISTORY: M79.673 - Pain in unspecified foot COMPARISON: Jeromy is made with the prior examination dated 06/22/2024. FINDINGS: Three views of the left foot are submitted. Osseous mineralization is normal. Again seen is a minimally displaced fracture of the base of the 2nd metatarsal. Callus formation is seen at the base of the 1st metatarsal suggestive of a healing fracture. In addition, there is the suggestion of linear lucencies of the bases of the 3rd and 4th metatarsals which may represent nondisplaced fractures. The joint spaces are preserved. The soft tissues are unremarkable. XR/XR foot LT min 3V IMPRESSION: Minimally displaced fracture of the base of the 2nd metatarsal remains visible. There may be additional fractures of the bases of the 1st, 3rd and 4th metatarsals. This could be confirmed with CT. Electronically signed by: Jaswinder Broderick MD 07/31/2024 01:05 PM EDT
== END 2024-07-31 08:36 | disposition home or self-care (01) ==
LOC: HO.HOSX 08:35
PROVIDERS: Visit Provider Physician Assistant
DX: M79.672 Pain in left foot (principal); S92.312A Displaced fracture of first metatarsal bone, left foot, initial encounter for closed fracture; S92.332A Displaced fracture of third metatarsal bone, left foot, initial encounter for closed fracture; S92.322A Displaced fracture of second metatarsal bone, left foot, initial encounter for closed fracture
CPT/HCPCS: 73630; 99212

== ENCOUNTER 2024-07-31 11:42 | Outpatient (AMB) | payer MEDICARE, SELFPAY ==
--- NOTE | 2024-07-31 11:52 | A.OFFVIS_ITS ---
Vital Signs 07/31/24 12:06 Height 5 ft Weight 184 lb BMI 35.9 Intake Visit Reasons: OV - left 1st, 2nd/3rd metatarsal fx, DOI 06/22/24 Intake Note: Fatoumata is a 68 year old female who presents today for a follow up of her left 1st, 2nd and 3rd MT fracture, DOI 06/22/24. At her last visit she was instructed to do daily dressing changes. Patient reports she is doing well. She is having little to no pain at the moment. Allergies Sulfa (Sulfonamide Antibiotics) [SULFA (SULFONAMIDE ANTIBIOTICS)] Allergy (Intermediate, Verified 07/31/24 12:05) Hives Lhnkqyy-EOV-FrN Reductase Inhibitor Adverse Reaction (Intermediate, Verified 07/31/24 12:05) myalgia; word retrieval difficulty aspirin [ASA] Adverse Reaction (Mild, Verified 07/31/24 12:05) GI UPSET HPI HPI OV - left 1st, 2nd/3rd metatarsal fx, DOI 06/22/24: Details: Ms. Zavala is a 68 year old female who presents today for a follow up of her left 1st, 2nd and 3rd MT fracture, DOI 06/22/24. At her last visit she was instructed to do daily dressing changes to an abrasion on the foot. Patient reports she is doing well. She is having little to no pain at the moment. She presents to the office today in [facility]. FORMERLY [facility], [facility] Medical History Macrocytosis without anemia Pure hypercholesterolemia Obesity (BMI 30-39.9) GERD without esophagitis Vitamin D deficiency Epilepsy Acquired hypothyroidism Benign essential hypertension Obstructive sleep apnea Lumbar and sacral arthritis Chronic pain syndrome Substance use disorder Generalized anxiety disorder Fibromyalgia Surgical History History of esophagogastroduodenoscopy (EGD) H/O colonoscopy History of knee replacement History of cholecystectomy Family History Mother No problems noted. Father No problems noted. Daughter Substance use disorder Son Substance use disorder Social History Housing: House Alcohol intake: current Alcohol intake frequency: holidays/special occasions only Patient Tobacco Use Status: Former Tobacco user e-Cigarette/Vaping Use: Never Used Second Hand Smoke Exposure: Yes service: No Current occupational status: employed Current occupation: Nurse [employer] Cognitive needs: No Hearing needs: No Vision needs: Yes Review of Systems Const All systems reviewed & are unremarkable except as noted in HPI and below Physical Exam Vital Signs: BMI result Body Mass Index 35.9 Extrem Other: Left foot: Mild to moderate dorsal sided edema with scattered resolving ecchymosis. The prior fracture blisters have completely healed with no signs of infection. There is no surrounding erythema or drainage. No signs of infection. Patient is able to demonstrate dorsiflexion, plantar flexion, pronation and supination without limitation.. Sensation intact. Pedal Pulse intact. Capillary refill is brisk. Assessment & Plan Assessment & Plan (1) Fracture of first metatarsal bone of left foot: Code(s): S92.312A - Displaced fracture of first metatarsal bone, left foot, initial encounter for closed fracture Category: Medical (2) Fracture of third metatarsal bone of left foot: Code(s): S92.332A - Displaced fracture of third metatarsal bone, left foot, initial encounter for closed fracture Category: Medical (3) Fracture of second metatarsal bone: Code(s): S92.323A - Displaced fracture of second metatarsal bone, unspecified foot, initial encounter for closed fracture Category: Medical Plan Ms. Zavala is a 68 year old female who presents today for a follow up of her left 1st, 2nd and 3rd MT fracture, DOI 06/22/24. At her last visit she was instructed to do daily dressing changes to an abrasion on the foot. Patient reports she is doing well. She is having little to no pain at the moment. She presents to the office today in [facility]. While in the office today, the patient is overall doing very well. She continues to have some zesp-ph-[id number] swelling over the dorsal aspect of the foot. Slight tenderness to palpation at the base of the 1st 2nd and 3rd metatarsals. She is looking to return to work full-time regular duty. I have instructed her to obtain a supportive walking sneaker. Additionally I have returned her to work full-time regular duty beginning Saturday08/03/24. Follow up with Orthopedics p[facility] sooner if needed. X-rays of the left foot which were obtained while in the office today and were reviewed by me, Jayla Kramer PA-C, revealed routine healing for 2nd and 3rd metatarsal fractures Orders: Orders XR foot LT min 3V Today M79.673 - Pain in unspecified foot Coding Level of Care Code Est Pt Level 3 (21853) Diagnoses Fracture of first metatarsal bone of left foot S92.312A Fracture of third metatarsal bone of left foot S92.332A Fracture of second metatarsal bone S92.323A
[2024-07-31 12:06] VITALS: BMI 35.9
== END 2024-07-31 12:28 | disposition home or self-care (01) ==
LOC: HO.HOS 11:43
PROVIDERS: PCP Internal Medicine; Visit Provider Physician Assistant
DX: S92.312A Displaced fracture of first metatarsal bone, left foot, initial encounter for closed fracture (principal); S92.332A Displaced fracture of third metatarsal bone, left foot, initial encounter for closed fracture; S92.323A Displaced fracture of second metatarsal bone, unspecified foot, initial encounter for closed fracture
CPT/HCPCS: 99213

== ENCOUNTER → 2024-07-31 11:45 | Outpatient (BNV) | payer MEDICARE, SELFPAY | PROVIDERS: Visit Provider Radiology Diagnostic Radiology | DX: S92.322A Displaced fracture of second metatarsal bone, left foot, initial encounter for closed fracture (principal) | CPT/HCPCS: 73630 ==

== ENCOUNTER 2024-09-25 18:38 | Day surgery (SDC) | payer MEDICARE, SELFPAY ==
[2024-09-25] VITALS (8 sets, daily range): BP systolic 150–196; BP diastolic 66–86; PULSE 77–92; RESP 14–18; TEMP 36.2–36.8; O2SAT 92–97; BMI 32.7
--- NOTE | ~2024-09-25 | XR_ITS ---
CLINICAL HISTORY: food bolus impaction 2 view chest x-ray Comparison: CR/SR - XR CHEST 2 VIEWS - 01/09/23 14:03 EST Findings: The lungs are clear. Normal size heart. Tortuous aorta. No acute fracture. Compression fracture within the midthoracic spine without change. IMPRESSION: 1. No acute findings. This document has been electronically signed by: Jasmine Contreras MD on 09/25/2024 20:21:49
--- NOTE | 2024-09-25 18:47 | ECG_ITS ---
Test Reason : weakness Blood Pressure : */* mmHG Vent. Rate : 79 BPM Atrial Rate : 79 BPM P-R Int : 122 ms QRS Dur : 84 ms QT Int : 418 ms P-R-T Axes : 3 22 64 degrees QTcB Int : 479 ms Normal sinus rhythm Nonspecific ST and T wave abnormality Abnormal ECG When compared with ECG of 19-Dec-2018 13:16, Nonspecific T wave abnormality now evident in Lateral leads Referred By: Flex Ndiaye Electronically Signed By: Thomas Masters
--- NOTE | 2024-09-25 18:47 | ED_ITS ---
HPI - General Adult General Chief complaint: General Medical Stated complaint: food bolus in her esophagus Time Seen by Provider: 09/25/24 19:54 Source: patient History of Present Illness ED Provider: HPI narrative: 68-year-old female, presenting with midsternal discomfort after eating a steak, this has been going on for the past 24 hours this is not the 1st time it has happened to her, she has been trying to drink soda at home and passive by herself but she states that she has not been able to drink any fluids and has not been able to manage her secretions at this time. She is not in respiratory distress. She has had full bolus impaction x3, last time approximate 10 10 years ago, she has had 2 endoscopies with stricture dilation at [facility] and once it [facility]. Related Data Home Medications ?Medication ?Instructions ?Recorded ?Confirmed ibuprofen 200 mg capsule See Rx Instructions PO Q6H P RN Pain 04/19/21 07/06/24 multivitamin (Daily Multi-Vitamin 1 tab PO DAILY 01/2207/06/24 tablet) Previous Rx's ?Medication ?Instructions ?Recorded cholecalciferol (vitamin D3) 25 25 mcg PO DAILY 90 day s #90 caps 04/19/21 mcg (1,000 unit) capsule methylcellulose (laxative) 500 mg 500 mg PO DAILY #90 tabs 04/09/22 tablet (Citrucel) polyethylene glycol 3350 17 17 g PO DAILY #510 grams 0 04/09/22 gram/dose oral powder (Miralax) albuterol sulfate 90 mcg/actuation 2 puff inhalation Q 4-6H PRN 01/09/23 aerosol inhaler shortness of breath or wheez ing #8.5 grams lorazepam 0.5 mg tablet 0.5 mg PO BEDTIME PRN anxiet y 30 03/11/23 days #30 tabs ondansetron HCl 4 mg tablet 2 - 4 mg (0.5 - 1 x 4 mg) PO Q8H 05/27/23 PRN for nausea/vomiting 30 days #90 tabs duloxetine 60 mg capsule,delayed 60 mg PO DAILY 90 day s #90 caps 08/07/23 release levetiracetam 500 mg tablet 500 mg PO BID #180 tabs lisinopril 20 2 tab PO DAILY 90 days #180 tabs 02/17/24 mg-hydrochlorothiazide 12.5 mg tablet metoprolol succinate 100 mg 100 mg PO DAILY 90 days #9 0 tabs 02/17/24 tablet,extended release 24 hr omeprazole 20 mg capsule,delayed 20 mg PO DAILY #90 ca ps 05/11/24 release oxycodone 5 mg tablet 5 mg PO Q6H PRN pain #14 tab s 06/22/24 levothyroxine 125 mcg tablet 125 mcg PO DAILY 90 days #90 tabs 07/01/24 ropinirole 0.25 mg tablet 0.25 mg PO BEDTIME 30 days # 30 tabs 07/06/24 duloxetine 30 mg capsule,delayed 30 mg PO DAILY 30 day s #30 caps 08/25/24 release celecoxib 200 mg capsule 200 mg PO BID #60 caps 08/26 lorazepam 1 mg tablet 1 mg PO DAILY PRN anxiety 30 days 09/07/24 #30 tabs Allergies Allergy/AdvReac Type Severity Reaction Status Date / Time Sulfa (Sulfonamide Allergy Intermediate Hives Verified 09/25/24 18:47 Antibiotics) (SULFA (SULFONAMIDE ANTIBIOTICS)) Ycpbqhb-ELA-BeT Reductase AdvReac Intermediate myalgia; Verified 09/25/24 18:47 Inhibitor word retrieval difficulty aspirin (ASA) AdvReac Mild GI UPSET Verified 09/25/24 18:47 Review of Systems 2 Constitutional: Constitutional: Reports as per [facility] Past Medical History Medical History Macrocytosis without anemia Pure hypercholesterolemia Obesity (BMI 30-39.9) GERD without esophagitis Vitamin D deficiency Epilepsy Acquired hypothyroidism Benign essential hypertension Obstructive sleep apnea Lumbar and sacral arthritis Chronic pain syndrome Substance use disorder Generalized anxiety disorder Fibromyalgia Surgical History History of esophagogastroduodenoscopy (EGD) H/O colonoscopy History of knee replacement History of cholecystectomy Family History Family History Mother No problems noted. Father No problems noted. Daughter Substance use disorder Son Substance use disorder Social History Social History Housing: House Alcohol intake: current Alcohol intake frequency: holidays/special occasions only Patient Tobacco Use Status: Former Tobacco user e-Cigarette/Vaping Use: Never Used Second Hand Smoke Exposure: Yes Advance Directives: No Advance Directives Information Provided: No Do you have a plan to hurt others: No Plan service: No Current occupational status: employed Current occupation: Nurse [employer] Cognitive needs: No Hearing needs: No Vision needs: Yes Physical Exam ED Vital Signs: Vital Signs - 24 hr 09/25/24 18:43 09/25/24 20:22 Temperature 97.7 F 98.2 F Pulse Rate 88 77 Respiratory Rate 16 16 Blood Pressure 175/86 H 177/81 H Pulse Oximetry 94 96 Oxygen Delivery Method Room Air Room Air BMI result Body Mass Index 32.7 Const Other: * Gen: She is in discomfort but not respiratory distress * HEENT: No food bolus in the upper airway * Neck: Supple, no LAD * CV: S1-S2 RRR * Resp: ?No wheezing rales rhonchi no stridor moving air well * Abd: ?Bowel sounds are present, no tenderness no rebound no rigidity * MSK: FROM, strength 5/5 all extremities * Skin: Warm, dry, intact, * Neuro: ?Alert and oriented x3, moving upper and lower extremities symmetrically, no obvious facial asymmetry noted Course Course Course Narrative: RME, this is a rapid medical exam performed by Brian Ndiaye please refer to primary provider for complete H&P- 68-year-old female presents for evaluation of what she believes to be a food bolus or food impaction. She has had this in the past. She reports eating steak last night and has been unable to swallow anything including her secretions over last 24 hours. She was unable take current medications today. She is spitting her secretions up into a bag in triage. Plan for basic labs and an EKG Medications Administered Discontinued Medications Generic Name Dose Route Start Last Admin Trade Name Freq PRN Reason Stop Dose Admin Ondansetron HCl 4 mg 09/25/24 19:44 09/25/24 20:24 Ondansetron Hcl 4 Mg/2 Ml Vial IVPUSH 09/25/24 19:45 4 mg ONCE ONE Administration Medical Decision Making Medical Decision Making MDM Narrative: Patient is presenting with food bolus impaction, she is spitting up in the bag, so not able to control her own secretions she is not on respiratory distress, I spoke with Dr. Monique from Gastroenterology he will come in to take this patient to the endoscopy suite. Differential Diagnosis Differential Diagnoses: The differential diagnosis associated with the presentation includes (Aspiration, food bolus impaction, respiratory compromise, pneumonia) Admission/Observation Consideration of admission/observation: Escalation of care including admission/observation considered Consult Healthcare Provider Management of the patient was discussed with: General [employer] 2022 Emergency Medicine Coding Guide from [employer] on 09/25/2024 All calculations should be rechecked by clinician prior to use RESULT SUMMARY: 5 Estimated Level of Service Problems: High (5) Risk: High (5) Data: Extensive (5) NARRATIVE MDM: This patient's problem complexity is High as patient: may have an acute or chronic illness/injury posing a threat to life or body function. This patient's risk is High due to: overall presentation requiring evaluation for a potentially High-risk process. This patient's data complexity is Extensive due to: -multiple tests ordered -independent interpretation of imaging or EKG -discussion of management/testing with external professional INPUTS: Number and Complexity ?> 2 = 5: illness/injury w/life or body threat (b) Risk level ?> 4 = High Tests ordered ?> 3 = =3 Tests results reviewed (excluding labs) ?> 1 = 1 Prior external notes reviewed ?> 0 = 0 Assessment requiring and independent historian ?> 0 = No Independent interpretation of tests ?> 1 = Yes Discussed management/test interpretation w/external professional ?> 1 = Yes Lab Data [facility] Lab Attestation statement: I reviewed the patient's lab results. 09/25/24 18:57 09/25/24 18:58 Labs: Lab Results 09/25/24 09/25/24 Range/Units 18:57 18:58 WBC 7.0 (4.8-10.8) X10*3/uL RBC 4.37 (4.20-5.50) X10*6/uL Hgb 14.1 (12.0-16.0) g/dl Hct 39.8 (37.0-47.0) % MCV 91.1 (80.0-98.0) fL MCH 32.3 (27.0-33.0) pg MCHC 35.4 H (31.0-35.0) g/dl RDW 12.5 (11.0-16.0) % Plt Count 205 (160-400) X10*3/uL MPV 10.6 (9.4-12.3) fL Immature Gran % (Auto) 0.3 (0.0-0.4) % Neut % (Auto) 75.7 H (45-73) % Lymph % (Auto) 14.7 L (20-40) % [place] % (Auto) 7.3 (2-11) % Eos % (Auto) 1.0 (0-4) % Baso % (Auto) 1.0 (0-2) % Lymph # (Auto) 1.0 L (1.2-4.9) X10*3/uL [place] # (Auto) 0.5 (0.1-1.2) X10*3/uL Eos # (Auto) 0.1 (0.0-0.4) X10*3/uL Baso # (Auto) 0.1 (0.0-0.2) X10*3/uL Abs Immat Gran (auto) 0.02 (0.00-0.03) X10*3/uL Absolute Neuts (auto) 5.3 (2.0-8.3) x10*3/uL Absolute Nucleated RBC 0.000 (0.0-0.012) X10*3/uL Nucleated RBC % (auto) 0.0 (0.0-0.2) /100WBC Sodium 140 (135-145) mmol/L Potassium 3.4 (3.3-5.1) mmol/L Chloride 102 (96-108) mmol/L Carbon Dioxide 24 (22-29) mmol/L Anion Gap 17 (12-20) BUN 10 (9-16) mg/dL Creatinine 0.80 (0.5-1.4) mg/dL Estim Creat Clear Calc 59.6 Estimated GFR > 60 Random Glucose 120 H (60-115) mg/dL Calcium 9.7 (8.4-10.2) mg/dL Independent Interpretation I performed an independent interpretation of an: EKG (79 beats per minute otherwise normal ECG without dysrhythmia, AV coleen blocks or ST-T changes to suspect underlying ACS, my independent interpretation) and Plain X-Ray (No obvious food bolus, no aspiration pneumonia noted) Discharge Plan Discharge Clinical Impression: Food bolus obstruction of intestine Patient Disposition: Admitted As Inpatient
[2024-09-25 19:02] LABS: MANUAL DIFF FLAG NO
[2024-09-25 19:03] LABS: Hematocrit 39.8 % (37.0-47.0); Hemoglobin 14.1 g/dl (12.0-16.0); Imm Gran Abs Auto 0.02 X10*3/uL (0.00-0.03); Imm Gran Pct Auto 0.3 % (0.0-0.4); Lymphocytes Absolute Auto 1.0 X10*3/uL (1.2-4.9); Mean Corpuscular HGB Conc 35.4 g/dl (31.0-35.0); Mean Corpuscular Hemoglobin 32.3 pg (27.0-33.0); Mean Corpuscular Volume 91.1 fL (80.0-98.0); NRBC Abs Auto 0.000 X10*3/uL (0.0-0.012); NRBC Pct Auto 0.0 /100WBC (0.0-0.2); Platelet Count 205 X10*3/uL (160-400); Red Blood Count 4.37 X10*6/uL (4.20-5.50); White Blood Count 7.0 X10*3/uL (4.8-10.8)
--- OUTSIDE RECORDS SUMMARY | 2024-09-25 19:10 | XMS_ITS | Patient Health Record ---
Author Organization [facility] Address [address] [place] [address] Care Team Providers Care Acrylic Fabricator Name Role Phone Jaswinder Brown [phone] Reason For Referral No Information Plan Of Treatment No Information
[2024-09-25 19:17] LABS: Anion Gap 17 (12-20); Blood Urea Nitrogen 10 mg/dL (9-16); Calcium 9.7 mg/dL (8.4-10.2); Carbon Dioxide 24 mmol/L (22-29); Chloride 102 mmol/L (96-108); Creatinine Clr Calc Pharmacy 59.6; Estimated Glomerular Filt Rate > 60; Potassium 3.4 mmol/L (3.3-5.1); Sodium 140 mmol/L (135-145)
--- NOTE | 2024-09-25 20:26 | PC.NURSE ---
verbal report given to pacu via phone. 22g IV placed to R forearm. per ED MD no glucagon administered. pt given zofran for nausea
--- NOTE | 2024-09-25 20:52 | PC.NURSE ---
pt transported to pacu in w/c
--- NOTE | 2024-09-25 20:59 | MHC.SHP ---
Pre-Procedural Eval Section A - 24 Hr Update-Section A only Date of Service: 09/25/24 The patient is an INPATIENT: No Changes since office visit: No Cold of Flu in the past 2 weeks, No New Medical Problems, No Changes in Medication and No Patient answered all questions The patient has been examined within 24 hours of the surgical procedure. The History & Physical has been completed within 30 days and I have reviewed it.: Yes Section B - Complete if H&P > 30 days Chief Complaint: flu in her esophagus Allergies: Allergies Allergy/AdvReac Type Severity Reaction Status Date / Time Sulfa (Sulfonamide Allergy Intermediate Hives Verified 09/25/24 18:47 Antibiotics) (SULFA (SULFONAMIDE ANTIBIOTICS)) Wgphyro-PCP-SdY Reductase AdvReac Intermediate myalgia; Verified 09/25/24 18:47 Inhibitor word retrieval difficulty aspirin (ASA) AdvReac Mild GI UPSET Verified 09/25/24 18:47 Plan I have reviewed the history and physical and performed a pertinent physical examination on my patient. No changes have occurred unless specified. Time Spent With Patient Time: Total time managing care of this patient today ____ minutes.
--- NOTE | 2024-09-25 21:29 | HO.ANESPROP2 ---
[facility] Active Problems Active Problems: All Active Problems Food bolus obstruction of intestine (Acute) Restless legs syndrome (Acute) Fracture of left foot (Acute) Fracture of third metatarsal bone of left foot (Acute) Fracture of first metatarsal bone of left foot (Acute) Fracture of second metatarsal bone (Acute) Right upper lobe consolidation (Acute) Thoracic back pain (Acute) Osteopenia (Acute) Impaired fasting glucose (Acute) Screening for colon cancer (Acute) Annual physical exam (Acute) Seizure (Acute) Chronic low back pain (Acute) Colon cancer screening (Acute) Macrocytosis without anemia (Acute) Pure hypercholesterolemia (Acute) Obesity (BMI 30-39.9) (Acute) GERD without esophagitis (Acute) Vitamin D deficiency (Acute) Epilepsy (Acute) Acquired hypothyroidism (Acute) Benign essential hypertension (Acute) Obstructive sleep apnea (Acute) Lumbar and sacral arthritis (Acute) Chronic pain syndrome (Acute) Substance use disorder (Acute) Generalized anxiety disorder (Acute) Fibromyalgia (Acute) Past Medical History Medical History Macrocytosis without anemia Pure hypercholesterolemia Obesity (BMI 30-39.9) GERD without esophagitis Vitamin D deficiency Epilepsy Acquired hypothyroidism Benign essential hypertension Obstructive sleep apnea Lumbar and sacral arthritis Chronic pain syndrome Substance use disorder Generalized anxiety disorder Fibromyalgia Functional capacity: independent ambulation Patient : No Family History Family History Mother No problems noted. Father No problems noted. Daughter Substance use disorder Son Substance use disorder Family history of problems with anesthesia: No Surgical History Surgical History History of esophagogastroduodenoscopy (EGD) H/O colonoscopy History of knee replacement History of cholecystectomy History of Problems with Anesthesia: No Social History Social History Housing: House Alcohol intake: current Alcohol intake frequency: holidays/special occasions only Patient Tobacco Use Status: Former Tobacco user e-Cigarette/Vaping Use: Never Used Second Hand Smoke Exposure: Yes Advance Directives: No Advance Directives Information Provided: No Do you have a plan to hurt others: No Plan service: No Current occupational status: employed Current occupation: Nurse [employer] Cognitive needs: No Hearing needs: No Vision needs: Yes Meds Allergies Allergy/AdvReac Type Severity Reaction Status Date / Time Sulfa (Sulfonamide Allergy Intermediate Hives Verified 09/25/24 18:47 Antibiotics) (SULFA (SULFONAMIDE ANTIBIOTICS)) Qbjidki-VYH-KxN Reductase AdvReac Intermediate myalgia; Verified 09/25/24 18:47 Inhibitor word retrieval difficulty aspirin (ASA) AdvReac Mild GI UPSET Verified 09/25/24 18:47 Home Medications ?Medication ?Instructions ?Recorded ?Confirmed ?Last Taken ?Type ibuprofen 200 mg capsule See Rx Instructions PO Q6H PRN Pain 04/19/21 07/06/24 Unknown History multivitamin (Daily Multi-Vitamin 1 tab PO DAILY 01/22/23 07/06/24 Unknown History tablet) Exam Height,Weight and Vital Signs: Height 5 ft Weight 76 kg Last Vital Signs Temp 97.2 F 09/25/24 20:54 Pulse 81 09/25/24 20:54 Resp 18 09/25/24 20:54 BP 196/85 H 09/25/24 20:54 Pulse Ox 97 09/25/24 20:54 O2 Del Method Room Air 09/25/24 20:54 Pertinent Lab Results Pertinent Lab Results: Laboratory Tests 09/25/24 09/25/24 18:57 18:58 WBC 7.0 RBC 4.37 Hgb 14.1 Hct 39.8 MCV 91.1 MCH 32.3 MCHC 35.4 H RDW 12.5 Plt Count 205 MPV 10.6 Immature Gran % (Auto) 0.3 Neut % (Auto) 75.7 H Lymph % (Auto) 14.7 L [place] % (Auto) 7.3 Eos % (Auto) 1.0 Baso % (Auto) 1.0 Lymph # (Auto) 1.0 L [place] # (Auto) 0.5 Eos # (Auto) 0.1 Baso # (Auto) 0.1 Abs Immat Gran (auto) 0.02 Absolute Neuts (auto) 5.3 Absolute Nucleated RBC 0.000 Nucleated RBC % (auto) 0.0 Sodium 140 Potassium 3.4 Chloride 102 Carbon Dioxide 24 Anion Gap 17 BUN 10 Creatinine 0.80 Estim Creat Clear Calc 59.6 Estimated GFR > 60 Random Glucose 120 H Calcium 9.7 Airway Mallampati Class: III TM Dist: >3cm Neck ROM: Full Partial: Upper Heart: RRR Lungs: CTA Assessment and Plan Assessment Anesthesia Assessment: Anesthesia Plan Discussed Final Anesthetic Review Family History of Problems with Anesthesia: No History of Problems with Anesthesia: No NPO: Yes ASA Class: III and Emergency Final Preanesthetic Review: Meds/Allgs Chart Reviewed, Consent Obtained/Reviewed and Anes Risks/Benef Reviewed Patient Risk: Intermediate Procedure Risk: Intermediate Anesthetic Plan Anesthetic Plan: GA Disposition: Standard PACU
--- NOTE | 2024-09-25 23:15 | CONS_ITS ---
DATE OF SERVICE: 09/25/2024 REFERRING PHYSICIAN: Dr. Payton REASON FOR CONSULTATION: Foreign body of the esophagus. 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 This developed the day before admission and she has not been able to swallow her secretions. She has had a history of esophageal impactions in the past and has had balloon dilations for possible stricturing disease. Records here indicate her last endoscopy was in March [address] Jiménez and showed a tortuous esophagus with increased tertiary contractions without obvious stricture or ring. Biopsies were negative for eosinophilic esophagitis. Balloon dilation to 19 mm was performed. PAST MEDICAL HISTORY: 1. Esophageal obstruction, as above. 2. Hyperlipidemia. 3. Macrocytosis. 4. Gastroesophageal reflux disease. 5. Vitamin D deficiency. 6. Seizure disorder. 7. Hypothyroidism. 8. Hypertension. 9. Sleep apnea. 10. Anxiety. 11. Fibromyalgia. 12. Knee replacement. 13. Cholecystectomy. CURRENT MEDICATIONS: Her current medication list is reviewed in the chart. ALLERGIES: MULTIPLE MEDICATION ALLERGIES ARE REVIEWED. FAMILY HISTORY: This is reviewed with the patient and is noncontributory. SOCIAL HISTORY: There is no current tobacco, alcohol, or substance abuse according to the patient. REVIEW OF SYSTEMS: SKIN: No pruritus. HEENT: Negative. CARDIOPULMONARY: No shortness of breath or chest pain. GASTROINTESTINAL: As above. GENITOURINARY: Negative. NEUROPSYCHIATRIC: Negative. PHYSICAL EXAMINATION: GENERAL: Shows a pleasant female, sitting comfortably in bed. VITAL SIGNS: Reviewed in the electronic medical record and are stable. SKIN: Anicteric. HEENT: Shows no scleral icterus. NECK: Without lymphadenopathy or thyromegaly. LUNGS: Clear. HEART: Shows regular rate and rhythm. S1, S2. No murmur. ABDOMEN: Soft without focal masses or tenderness. Bowel sounds are present. No organomegaly is noted. EXTREMITIES: Without edema. LABORATORY DATA AND IMAGING STUDIES: Reviewed. IMPRESSION: Foreign body of the esophagus. PLAN: Upper endoscopy. Risks and benefits of the procedure have been discussed with the patient who understands and agrees to proceed. MD MELANIE Wei/KEEGAN / [id number]
--- NOTE | 2024-09-26 00:54 | OP_ITS ---
DATE OF SERVICE: 09/25/2024 SURGEON: Van Monique MD INDICATIONS: Esophageal foreign body and dysphagia. PREOPERATIVE DIAGNOSIS: POSTOPERATIVE DIAGNOSIS: PROCEDURE PERFORMED: Upper endoscopy with removal of esophageal foreign body. ESTIMATED BLOOD LOSS: COMPLICATIONS: ANESTHESIA: General anesthesia. ASSISTANTS: SPECIMENS: DESCRIPTION OF PROCEDURE: A history and physical was performed. The risks and benefits of the procedure were explained to the patient. Informed consent was obtained. The patient was placed in the left lateral decubitus position. Initially, she was placed in the supine position and food was identified in the hypopharynx, which was removed by inserting the gastroscope and a Grabber into the back of the throat, so intubation could be done safely. Next, the Olympus video gastroscope was introduced into the esophagus, stomach, and duodenum. Examination was performed. The scope was removed. She tolerated the procedure well and was taken to recovery in stable condition. FINDINGS: Esophagus: There was a large amount of retained food in the esophagus, which was removed with a combination of a Cano net and a grabbing forceps to clear the esophagus. Food was eventually able to be pushed down into the stomach. The procedure was extended and difficult. The patient was initially intubated and the procedure started with her supine, but she was turned to left lateral decubitus because of the amount of food in the esophagus. The esophagus was eventually cleared. No stricture was identified. There was some associated esophagitis likely from the food irritation being present for 24 hours. No dilation was performed. Stomach: The stomach showed some benign-appearing gastric polyps, but no ulcers or lesions. Duodenum: The bulb and 2nd portion were normal. At the termination of the procedure, the hypopharynx was again carefully examined and some small pieces of food were subsequently removed using a combination of a 3-Prong grasper and a Cano net. The esophagus at the end hypopharynx was clear of food at the termination of the procedure. IMPRESSION: Food bolus, esophagus. RECOMMENDATIONS: 1. Followup endoscopy in the future with consideration for balloon dilation as she has required previously. 2. Soft diet x24 hours. MD MELANIE Wei/PAUALL / [id number] [facility]
== END 2024-09-25 22:59 | disposition home or self-care (01) ==
LOC: HO.ED 20:17 → HO.SSS 20:33
PROVIDERS: Internal Medicine Gastroenterology; Physician Assistant; Emergency Provider Emergency Medicine; PCP Internal Medicine; Visit Provider Emergency Medicine
PROC: 0DJ08ZZ Inspection of Upper Intestinal Tract, Via Natural or Artificial Opening Endoscopic (ICD-10-PCS; CPT 43235; principal; 2024-09-25 21:00)
DX: T18.128A Food in esophagus causing other injury, initial encounter (principal); W44.F3XA Food entering into or through a natural orifice, initial encounter; R13.10 Dysphagia, unspecified; K31.7 Polyp of stomach and duodenum; K21.9 Gastro-esophageal reflux disease without esophagitis; I10 Essential (primary) hypertension; E78.00 Pure hypercholesterolemia, unspecified; E03.9 Hypothyroidism, unspecified; G47.33 Obstructive sleep apnea (adult) (pediatric); G89.4 Chronic pain syndrome; Z87.891 Personal history of nicotine dependence
CPT/HCPCS: 43247; 36415; 71046; 80048; 85025; 93005; 96374; 99285; J1100; J1610; J2003; J2405; J2704

== ENCOUNTER → 2024-09-25 18:47 | Outpatient (BNV) | payer MEDICARE, SELFPAY | PROVIDERS: Emergency Provider Emergency Medicine; PCP Internal Medicine; Visit Provider Internal Medicine Cardiovascular Disease | DX: R94.31 Abnormal electrocardiogram [ECG] [EKG] (principal); R53.1 Weakness | CPT/HCPCS: 93010 ==

== ENCOUNTER → 2024-09-25 19:44 | Outpatient (BNV) | payer MEDICARE, SELFPAY | PROVIDERS: Emergency Provider Emergency Medicine; PCP Internal Medicine; Visit Provider Radiology Diagnostic Radiology | DX: K22.2 Esophageal obstruction (principal) | CPT/HCPCS: 71046 ==

== ENCOUNTER 2025-02-06 19:37 | Emergency (ER) | payer MEDICARE, SELFPAY ==
--- NOTE | ~2025-02-06 | CT_ITS ---
CLINICAL HISTORY: slip and fall head strike CT head without contrast Comparison: None provided Findings: BRAIN: No acute infarct, hemorrhage, or mass effect. Scattered periventricular/deep white matter hypodensities, nonspecific, however may represent chronic microvascular ischemic disease. CSF SPACES: No hydrocephalus or effacement of basal cisterns. SKULL: No calvarial fracture. SINUSES: No significant mucosal thickening or effusion on limited views. ORBITS: Limited views are unremarkable. OTHER: Left frontal and occipital scalp hematoma. IMPRESSION: 1. No acute intracranial findings. This document has been electronically signed by: Lyudmila Mancera MD on 02/06/2025 22:19:52
--- NOTE | ~2025-02-06 | CT_ITS ---
CLINICAL HISTORY: slip and fall with head strike CT cervical spine without contrast Comparison: None provided Findings: Straightening of the normal cervical lordosis. Multilevel degenerative endplate changes of the cervical spine. No high-grade spinal stenosis. No acute fractures or dislocations. No acute findings on limited view of the intracranial contents. No cervical fluid collections or masses. No consolidation or effusion at the lung apices. IMPRESSION: No acute findings. This document has been electronically signed by: Lyudmila Mancera MD on 02/06/2025 22:18:01
[2025-02-06 19:41] VITALS: BMI 34.3
[2025-02-06 19:44] VITALS: BP 176/97; PULSE 86; RESP 18; TEMP 36.6; O2SAT 98
[2025-02-06 19:51] LABS: MANUAL DIFF FLAG NO
[2025-02-06 19:53] LABS: Hematocrit 40.9 % (37.0-47.0); Hemoglobin 14.1 g/dl (12.0-16.0); Imm Gran Abs Auto 0.04 X10*3/uL (0.00-0.03); Imm Gran Pct Auto 0.5 % (0.0-0.4); Lymphocytes Absolute Auto 2.7 X10*3/uL (1.2-4.9); Mean Corpuscular HGB Conc 34.5 g/dl (31.0-35.0); Mean Corpuscular Hemoglobin 34.0 pg (27.0-33.0); Mean Corpuscular Volume 98.6 fL (80.0-98.0); NRBC Abs Auto 0.000 X10*3/uL (0.0-0.012); NRBC Pct Auto 0.0 /100WBC (0.0-0.2); Platelet Count 189 X10*3/uL (160-400); Red Blood Count 4.15 X10*6/uL (4.20-5.50); White Blood Count 8.0 X10*3/uL (4.8-10.8)
[2025-02-06 20:06] LABS: Alanine Aminotransferase 20 U/L (0-31); Albumin Level 4.6 g/dL (3.5-5.0); Alkaline Phosphatase 88 U/L (39-117); Anion Gap 13 (12-20); Aspartate Amino Transferase 36 U/L (5-31); Blood Urea Nitrogen 15 mg/dL (9-16); Calcium 9.3 mg/dL (8.4-10.2); Carbon Dioxide 29 mmol/L (22-29); Chloride 98 mmol/L (96-108); Creatinine Clr Calc Pharmacy 47.2; Estimated Glomerular Filt Rate 53; Potassium 3.2 mmol/L (3.3-5.1); Sodium 137 mmol/L (135-145); Total Protein 7.4 g/dL (6.5-8.0)
[2025-02-06 20:17] VITALS: BP 172/79; PULSE 78; RESP 16; TEMP 36.8; O2SAT 98
--- OUTSIDE RECORDS SUMMARY | 2025-02-06 20:22 | XMS_ITS | Patient Health Record ---
Author Organization [facility] Address [address] [place] [address] Care Team Providers Care Ticket Printer Name Role Phone Trisha Monroe MDh Primary Care Provider Pamella Monique Jr, Van Jenkins Reason For Referral No Information Problems Problem Type SNOMED Code ICD Code Onset Dates Problem Status W/U Status Risk Notes Problem Dysphagia (70708125) Dysphagia (R13.10) Active confirmed Encounters Encounter Location Date Provider Diagnosis [facility] [address] [place] [address] 11/26/2024 Van Monique Jr Plan Of Treatment Next Appt Details Provider Name:Van hinojosa Jr, 03/18/2025 02:55:00 PM, [address] [place] [address], [address], [place], [address], Insurance Providers Payer Name Payer Address Payer Phone Subscriber Number Group Number Insured Name Patient Relationship to Insured Coverage Start Date Coverage End Date MEDICARE OF [place] [address] [place] [address] [id number] [place] Self - patient is the insured [employer] ATT[employer] CLAIMS [address] [place] [address] [id number] [place] Self - patient is the insured
[2025-02-06 22:08] VITALS: BP 146/74; PULSE 78; RESP 16; TEMP 36.9; O2SAT 95
[2025-02-06] MEDS: Lidocaine HCl 1 % MPF 5 ML VIAL SUBCUT (22:18)
--- NOTE | 2025-02-06 22:22 | ED_ITS ---
HPI - Fall General Chief Complaint: Fall Stated Complaint: fall, +headstrike Time Seen by Provider: 02/06/25 21:46 History of Present Illness HPI Narrative: Patient is a 69-year-old female status post fall. Complaining of pain to the frontal area and also to the occipital area on the left side. There was no loss of consciousness. There is no nausea no vomiting. Patient took a misstep against a concrete step. There is no nausea no vomiting. There is no focal weakness. Patient is from home. Complaining of pain mostly localized. No focal weakness. Patient is not on blood thinners. Related Data Home Medications ?Medication ?Instructions ?Recorded ?Confirmed ibuprofen 200 mg capsule See Rx Instructions PO Q6H P RN Pain 04/19/21 07/06/24 multivitamin (Daily Multi-Vitamin 1 tab PO DAILY 01/2207/06/24 tablet) Previous Rx's ?Medication ?Instructions ?Recorded cholecalciferol (vitamin D3) 25 25 mcg PO DAILY 90 day s #90 caps 04/19/21 mcg (1,000 unit) capsule methylcellulose (laxative) 500 mg 500 mg PO DAILY #90 tabs 04/09/22 tablet (Citrucel) polyethylene glycol 3350 17 17 g PO DAILY #510 grams 0 04/09/22 gram/dose oral powder (Miralax) albuterol sulfate 90 mcg/actuation 2 puff inhalation Q 4-6H PRN 01/09/23 aerosol inhaler shortness of breath or wheez ing #8.5 grams lorazepam 0.5 mg tablet 0.5 mg PO BEDTIME PRN anxiet y 30 03/11/23 days #30 tabs ondansetron HCl 4 mg tablet 2 - 4 mg (0.5 - 1 x 4 mg) PO Q8H 05/27/23 PRN for nausea/vomiting 30 days #90 tabs levetiracetam 500 mg tablet 500 mg PO BID #180 tabs lisinopril 20 2 tab PO DAILY 90 days #180 tabs 02/17/24 mg-hydrochlorothiazide 12.5 mg tablet metoprolol succinate 100 mg 100 mg PO DAILY 90 days #9 0 tabs 02/17/24 tablet,extended release 24 hr oxycodone 5 mg tablet 5 mg PO Q6H PRN pain #14 tab s 06/22/24 levothyroxine 125 mcg tablet 125 mcg PO DAILY 90 days #90 tabs 07/01/24 duloxetine 30 mg capsule,delayed 30 mg PO DAILY 30 day s #30 caps 08/25/24 release celecoxib 200 mg capsule 200 mg PO BID #60 caps 11/04 omeprazole 20 mg capsule,delayed 20 mg PO DAILY #90 ca ps 11/04/24 release duloxetine 60 mg capsule,delayed 60 mg PO DAILY 90 day s #90 caps 12/16/24 release ropinirole 0.25 mg tablet 0.25 mg PO BEDTIME 30 days # 30 tabs 01/02/25 lorazepam 1 mg tablet 1 mg PO DAILY PRN anxiety 30 days 01/21/25 #30 tabs oxycodone 5 mg tablet 5 mg PO Q8H PRN pain #7 tabs 02/06/25 Allergies Allergy/AdvReac Type Severity Reaction Status Date / Time Sulfa (Sulfonamide Allergy Intermediate Hives Verified 02/06/25 19:42 Antibiotics) (SULFA (SULFONAMIDE ANTIBIOTICS)) Nhiuxel-BDI-ViD Reductase AdvReac Intermediate myalgia; Verified 02/06/25 19:42 Inhibitor word retrieval difficulty aspirin (ASA) AdvReac Mild GI UPSET Verified 02/06/25 19:42 Review of Systems 2 Review of Systems: Positive head injury Yes all other systems are reviewed and are negative PMFSH Past Medical History Attestation statement: The following information was validated with the patient. Medical History Macrocytosis without anemia Pure hypercholesterolemia Obesity (BMI 30-39.9) GERD without esophagitis Vitamin D deficiency Epilepsy Acquired hypothyroidism Benign essential hypertension Obstructive sleep apnea Lumbar and sacral arthritis Chronic pain syndrome Substance use disorder Generalized anxiety disorder Fibromyalgia Surgical History History of esophagogastroduodenoscopy (EGD) H/O colonoscopy History of knee replacement History of cholecystectomy Family History Family History Mother No problems noted. Father No problems noted. Daughter Substance use disorder Son Substance use disorder Social History Social History Housing: House Alcohol intake: current Alcohol intake frequency: does not drink Patient Tobacco Use Status: Former Tobacco user Smoked in Last 30 Days: No e-Cigarette/Vaping Use: Never Used Second Hand Smoke Exposure: Yes Use of substances other than those prescribed or required for medical reasons: No Advance Directives: No Advance Directives Information Provided: No Do you have a plan to hurt others: No Plan service: No Current occupational status: employed Current occupation: Nurse [employer] Cognitive needs: No Hearing needs: No Vision needs: Yes Physical Exam 2 Exam: Exam: Appearance: Alert. Oriented X3. No acute distress. Head exam there is a significant laceration to the left occipital area approximately 6 cm in size. Down to subcutaneous tissue. There is multiple abrasion noted in the left frontal area. Eyes: Pupils equal, round and reactive to light. Gross visual acuity intact extraocular muscle intact ENT: Pharynx normal. Neck: Normal inspection. Neck supple. No lymph nodes noted. No crepitus CVS: Normal heart rate and rhythm. Pulses normal. Normal S1 and S2 Respiratory: No respiratory distress. Breath sounds normal. No Wheezing. No rales Abdomen: Soft and nontender. No rigidity. No distention. good BS x4 Skin: Skin warm and dry. Normal skin color. Normal skin turgor. Extremities: No lower extremity edema. Neurovascular intact to all extremities. No Lacerations. No Rash Neuro: Oriented X 3. No motor deficit. No sensory deficit. Moving all extermities. No slurred speech Vital Signs: Vital Signs: Last Vital Signs Temp 98.4 F 02/06/25 22:08 Pulse 78 02/06/25 22:08 Resp 16 02/06/25 22:08 BP 146/74 H 02/06/25 22:08 Pulse Ox 95 02/06/25 22:08 O2 Del Method Room Air 02/06/25 22:08 BMI result Body Mass Index 34.3 Medications Administered Discontinued Medications Generic Name Dose Route Start Last Admin Trade Name Freq PRN Reason Stop Dose Admin Lidocaine HCl 5 ml 02/06/25 21:59 02/06/25 22:18 Lidocaine Hcl 1 % Mpf 5 Ml Vial SUBCUT 02/06/25 22:00 5 ml ONCE ONE Administration Medical Decision Making Medical Decision Making MDM Narrative: Positive head injury on a 69-year-old female the fall was accidental in nature. There was no dizziness no nausea no vomiting before after. My interpretation patient's CT head was grossly negative. I reviewed radiology's reading of the CT head CT C-spine the both negative no fracture. Patient's tetanus status is up-to-date. Neurologically intact. Family to watch patient at home. Not on blood thinners. In stable condition will discharge home. Differential Diagnosis Differential Diagnoses: The differential diagnosis associated with the presentation includes Head injury, intracranial bleed, fracture Admission/Observation Consideration of admission/observation: Escalation of care including admission/observation considered Lab Data MDM Lab Attestation statement: I reviewed the patient's lab results. 02/06/25 19:48 02/06/25 19:48 Labs: Lab Results 02/06/25 Range/Units 19:48 WBC 8.0 (4.8-10.8) X10*3/uL RBC 4.15 L (4.20-5.50) X10*6/uL Hgb 14.1 (12.0-16.0) g/dl Hct 40.9 (37.0-47.0) % MCV 98.6 H (80.0-98.0) fL MCH 34.0 H (27.0-33.0) pg MCHC 34.5 (31.0-35.0) g/dl RDW 12.2 (11.0-16.0) % Plt Count 189 (160-400) X10*3/uL MPV 10.0 (9.4-12.3) fL Immature Gran % (Auto) 0.5 H (0.0-0.4) % Neut % (Auto) 52.6 (45-73) % Lymph % (Auto) 33.6 (20-40) % [place] % (Auto) 10.1 (2-11) % Eos % (Auto) 2.1 (0-4) % Baso % (Auto) 1.1 (0-2) % Lymph # (Auto) 2.7 (1.2-4.9) X10*3/uL [place] # (Auto) 0.8 (0.1-1.2) X10*3/uL Eos # (Auto) 0.2 (0.0-0.4) X10*3/uL Baso # (Auto) 0.1 (0.0-0.2) X10*3/uL Abs Immat Gran (auto) 0.04 H (0.00-0.03) X10*3/uL Absolute Neuts (auto) 4.2 (2.0-8.3) x10*3/uL Absolute Nucleated RBC 0.000 (0.0-0.012) X10*3/uL Nucleated RBC % (auto) 0.0 (0.0-0.2) /100WBC Sodium 137 (135-145) mmol/L Potassium 3.2 L (3.3-5.1) mmol/L Chloride 98 (96-108) mmol/L Carbon Dioxide 29 (22-29) mmol/L Anion Gap 13 (12-20) BUN 15 (9-16) mg/dL Creatinine 1.02 (0.5-1.4) mg/dL Estim Creat Clear Calc 47.2 Estimated GFR 53 Random Glucose 100 (60-115) mg/dL Calcium 9.3 (8.4-10.2) mg/dL Total Bilirubin 0.4 (0.0-1.0) mg/dL AST 36 H (5-31) U/L ALT 20 (0-31) U/L Alkaline Phosphatase 88 (39-117) U/L Total Protein 7.4 (6.5-8.0) g/dL Albumin 4.6 (3.5-5.0) g/dL Hold Yellow Top See Note Independent Interpretation I performed an independent interpretation of an: CT Scan (CT head grossly negative for bleed. CT C-spine grossly negative for acute fracture) Radiology Impression Discussion of test interpretation with radiology: I have reviewed the radiologist's reading. Chronic Conditions History of seizures Discharge Plan Discharge Clinical Impression: Head injury, Laceration of scalp Patient Disposition: Home, Self-Care Instructions: Laceration (DC), Head Injury (DC) Additional Instructions: Staple to be removed in 5-7 days Prescriptions: New oxycodone 5 mg tablet 5 mg PO Q8H PRN (Reason: pain) Qty: 7 0RF Rx Instructions: Partial Fill upon patient request. No Action lorazepam 0.5 mg tablet 0.5 mg PO BEDTIME PRN (Reason: anxiety) 30 Days Qty: 30 0RF ondansetron HCl 4 mg tablet 2 - 4 mg PO Q8H PRN (Reason: for nausea/vomiting) 30 Days Qty: 90 1RF levetiracetam 500 mg tablet 500 mg PO BID Qty: 180 3RF metoprolol succinate 100 mg tablet extended release 24 hr 100 mg PO DAILY 90 Days Qty: 90 3RF lisinopril-hydrochlorothiazide 20-12.5 mg tablet 2 tab PO DAILY 90 Days Qty: 180 3RF levothyroxine 125 mcg tablet 125 mcg PO DAILY 90 Days Qty: 90 3RF duloxetine 30 mg capsule,delayed release(DR/EC) 30 mg PO DAILY 30 Days Qty: 30 1RF omeprazole 20 mg capsule,delayed release(DR/EC) 20 mg PO DAILY Qty: 90 1RF celecoxib 200 mg capsule 200 mg PO BID Qty: 60 0RF duloxetine 60 mg capsule,delayed release(DR/EC) 60 mg PO DAILY 90 Days Qty: 90 1RF Rx Instructions: To take during winter ropinirole 0.25 mg tablet 0.25 mg PO BEDTIME 30 Days Qty: 30 3RF Rx Instructions: administer 1-3 hours before bedtime lorazepam 1 mg tablet 1 mg PO DAILY PRN (Reason: anxiety) 30 Days Qty: 30 0RF albuterol sulfate 90 mcg/actuation HFA aerosol inhaler 2 puff inhalation Q4-6H PRN (Reason: shortness of breath or wheezing) Qty: 8.5 0RF oxycodone 5 mg tablet 5 mg PO Q6H PRN (Reason: pain) Qty: 14 0RF Rx Instructions: Partial Fill upon patient request. multivitamin [Daily Multi-Vitamin] Tablet 1 tab PO DAILY ibuprofen 200 mg capsule See Rx Instructions PO Q6H PRN (Reason: Pain) Rx Instructions: 1 to 3 capsules PO every 6 hours PRN; cholecalciferol (vitamin D3) 25 mcg (1,000 unit) capsule 25 mcg PO DAILY 90 Days Qty: 90 3RF polyethylene glycol 3350 [Miralax] 17 gram/dose powder 17 g PO DAILY Qty: 510 2RF Citrucel 500 mg tablet 500 mg PO DAILY Qty: 90 2RF Rx Instructions: take it with full glass of water Referrals: Davie Monroe MD [Primary Care Provider, Internal Medicine] Referral Note: Staple to be removed in 5-7 days Print Language: Nepali
[2025-02-06 23:01] VITALS: BP 146/74; PULSE 78; RESP 16; TEMP 36.9; O2SAT 95
[2025-02-11 01:49] LABS: Levetiracetam Keppra 29.0 mcg/mL (10.0-40.0)
== END 2025-02-06 23:01 | disposition home or self-care (01) ==
PROVIDERS: Emergency Provider Emergency Medicine Emergency Medical Services; PCP Internal Medicine
DX: S01.01XA Laceration without foreign body of scalp, initial encounter (principal); R51.9 Headache, unspecified; M54.2 Cervicalgia; W10.9XXA Fall (on) (from) unspecified stairs and steps, initial encounter; Y93.01 Activity, walking, marching and hiking; Y92.9 Unspecified place or not applicable; Y99.8 Other external cause status; Z79.899 Other long term (current) drug therapy
CPT/HCPCS: 36415; 70450; 72125; 80053; 80177; 85025; 99285; J2003

== ENCOUNTER → 2025-02-06 19:39 | Outpatient (BNV) | payer MEDICARE, SELFPAY | PROVIDERS: Emergency Provider Emergency Medicine Emergency Medical Services; PCP Internal Medicine; Visit Provider Student in an Organized Health Care Education/Training Program | DX: S09.90XA Unspecified injury of head, initial encounter (principal); W01.0XXA Fall on same level from slipping, tripping and stumbling without subsequent striking against object, initial encounter | CPT/HCPCS: 70450; 72125 ==